=== PATIENT | female | born 1990 | race Caucasian/White ===

== ENCOUNTER 2016-11-16 01:22 | Outpatient (CLI) | payer OTHER ==
[~2016-11-16] VITALS: Ht 154.9 cm; Wt 90.5 kg
[2016-11-16] MEDS ORDERED: ONDA8TAB6 PO (02:20)
[2016-11-16] MEDS ORDERED: VALA500T60 PO (02:20)
[2016-11-16] MEDS ORDERED: ALBU4TAB10 PO (02:20)
[2016-11-16 02:24] VITALS: Ht 154.9 cm; Wt 90.5 kg
--- NOTE | 2016-11-16 07:54 | HISTORY & PHYSICAL EXAMINATION ---
DATE OF ADMISSION: 11/16/2016 CHIEF COMPLAINT: Pressure and pain with movement, intrauterine at 36 weeks plus gestation. HISTORY OF PRESENT ILLNESS: The patient is a 26-year-old 3, para 1, general health is good, due date is 12/14/2016, who has had no problems. Her first delivery was 2012 of 7 pounds 11 ounces at 39 weeks gestation, spontaneous vaginal delivery, pushed 4 hours. The patient said she had pelvic pain and discomfort when the baby moved. That happened about a half hour before she presented at [facility]. She has had no bleeding. She has had no leakage of fluid and movement has been good. PAST MEDICAL HISTORY: She has a girl 4-1/2 years old in good health. ALLERGIES: No known drug allergies. PAST SURGICAL HISTORY: She has had her gallbladder removed. She has had a right carpal tunnel. MEDICAL HISTORY: She is on Valtrex for problems with genital herpes. SOCIAL HISTORY: No smoking. No excessive alcohol intake. Works at a daycare center. FAMILY HISTORY: Mom is 47 in good health. Father 45 in good health. She has 1 sister in good health. REVIEW OF SYSTEMS: She does have a history of migraine headaches. No symptoms of frequent or severe ear infections, nosebleed or bladder infections. PHYSICAL EXAMINATION: GENERAL: Well developed, well-nourished 26-year-old white female, alert, oriented x3 and cooperative, in no acute distress, appears stated age. EYES: Conjunctivae are pink. Sclerae are white. No evidence of jaundice. EARS: Had normal light reflex bilaterally. NOSE: Had normal mucosa. Septum is midline. There were no polyps. THROAT: No erythema or evidence of infection. Teeth are in good state of repair. HEAD: Normocephalic, normal distribution of hair. NECK: Supple. Trachea midline. Thyroid is not enlarged. There is no adenopathy appreciated. Both carotids are of good intensity. CHEST: Clear to auscultation and percussion. No wheezes, rales or rhonchi appreciated. HEART: Had a regular rhythm. S1 and S2 were normal. BREASTS: Normal. Breast exam was normal. ABDOMEN: Soft and nontender, consistent with a 36-week , no CVA tenderness. MUSCULOSKELETAL: No calf tenderness. PELVIC: Revealed a vertex, floating. Cervix was posterior and closed. There was no bleeding. IMPRESSIONS OF THIS CASE: Status post cholecystectomy, status post removal of right ganglion cyst and no evidence of premature labor.
== END 2016-11-16 08:00 | disposition home or self-care (01) ==
LOC: C.OPB 01:22 → C.LD 01:22 → C.OPB 08:00
PROVIDERS: ATTEND Obstetrics & Gynecology
DX: Z34.83 Encounter for supervision of other normal pregnancy, third trimester (principal); Z3A.36 36 weeks gestation of pregnancy; Z90.49 Acquired absence of other specified parts of digestive tract

== ENCOUNTER 2016-11-30 22:30 | Outpatient (CLI) | payer OTHER ==
[~2016-11-30] VITALS: Ht 154.9 cm; Wt 93.0 kg
[~2016-11-30 22:30] MED LIST: ALBU4TAB10 PO; ONDA8TAB6 PO; VALA500T60 PO
[2016-12-01 00:43] VITALS: Ht 154.9 cm; Wt 93.0 kg
== END 2016-12-01 00:35 | disposition home or self-care (01) ==
LOC: C.LD 22:30 → C.OPB 22:30
PROVIDERS: ATTEND Obstetrics & Gynecology
DX: O26.893 Other specified pregnancy related conditions, third trimester (principal); Z3A.38 38 weeks gestation of pregnancy

== ENCOUNTER 2016-12-01 13:18 | Outpatient (CLI) | payer OTHER | END 2016-12-01 14:15 | disposition home or self-care (01) | LOC: C.LD 13:18 → C.OPB 13:18 | PROVIDERS: ATTEND Obstetrics & Gynecology | DX: Z34.83 Encounter for supervision of other normal pregnancy, third trimester (principal) ==

== ENCOUNTER 2016-12-08 21:17 | Inpatient (IN) | payer OTHER ==
[~2016-12-08] VITALS: Ht 154.9 cm; Wt 92.7 kg
[2016-12-08 22:02] VITALS: Ht 154.9 cm; Wt 92.7 kg
[2016-12-08] MEDS ORDERED: LACTATED RINGER'S 1000ML 1,000 ML IV PRN (22:25)
[2016-12-08] MEDS ORDERED: CALCIUM CARBONATE 500 MG CHEWABLE PO PRN (22:30)
[2016-12-08] MEDS ORDERED: PENICILLIN G POTASSIUM IV 6 MU in DEXTROSE 5% 250ML 250 ML IV STA (22:31)
[2016-12-08] MEDS ORDERED: MISOPROSTOLTAB 50 MCG TAB PO STA (22:32)
[2016-12-08] MEDS: LACTATED RINGER'S 1000ML 1,000 ML IV SCH (23:08)
[2016-12-08 23:21] LABS: HEMATOCRIT 33.7 % (37-47); MEAN CELL VOLUME 82.8 fL (80-100); MEAN CORPUSCULAR HGB CONC 33.8 g/dl (32-36); PLATELET COUNT 244 K/uL (130-400); RED BLOOD COUNT 4.07 M/uL (4.2-5.4); WHITE BLOOD COUNT 9.14 K/uL (4.8-10.8)
[2016-12-09] MEDS ORDERED: ONDANSETRON INJ 2 MG/ML 2 ML VIAL ONE (00:33)
[2016-12-09] MEDS ORDERED: NURSING VERBAL MED ORDER ONE (00:45)
[2016-12-09] MEDS ORDERED: ONDANSETRON INJ 2 MG/ML 2 ML VIAL IV PRN ×2 (01:00→21:15)
[2016-12-09] MEDS: PENICILLIN G POTASSIUM IV 3 MU in DEXTROSE 5% 100ML 100 ML IV PRN ×6 (02:34→22:13)
[2016-12-09] MEDS ORDERED: DINOPROSTONE 10 MG INSERT PV ONE (08:30)
[2016-12-09] MEDS ORDERED: BUTORPHANOL TARTRATE 1 MG/ML VIAL IV PRN (19:15)
[2016-12-09] MEDS ORDERED: BUTORPHANOL TARTRATE 1 MG/ML VIAL ONE (19:24)
[2016-12-09] MEDS ORDERED: LACTATED RINGER'S 1000ML 500 ML IV PRN ×2 (20:20→21:12)
[2016-12-09] MEDS ORDERED: BUPIVACAINE 0.25% 30 ML VIAL ONE (20:27)
[2016-12-09] MEDS ORDERED: FENTANYL CITRATE INJ 50 MCG/1 ML 2 ML VIAL ONE (20:27)
[2016-12-09] MEDS ORDERED: EpHEDrine SULFATE INJ 50 MG/ML AMP ONE (20:27)
[2016-12-09] MEDS ORDERED: FENTANYL 2MCG/ML ROPIV 1.25MG/ML 100ML BAG EPI ONE (20:27)
[2016-12-09] MEDS ORDERED: OXYTOCIN 30 UNITS/500ML NSS IV PRN (20:30)
[2016-12-09] MEDS ORDERED: FENTANYL 2MCG/ML ROPIV 1.25MG/ML 100ML BAG EPI PRN (21:15)
[2016-12-09] MEDS ORDERED: EpHEDrine SULFATE INJ 50 MG/ML AMP IV PRN (21:15)
[2016-12-09] MEDS ORDERED: NALOXONE HCL INJ 0.4 MG/1 ML VIAL/CARP IV PRN (21:15)
[2016-12-09] MEDS: LACTATED RINGER'S 1000ML 1,000 ML IV SCH (22:13)
[2016-12-10] MEDS ORDERED: METHYLERGONOVINE MALEATE 0.2 MG/ML AMP ONE (00:32)
[2016-12-10] MEDS ORDERED: LANOLIN OINT EXT PRN ×2 (02:00)
[2016-12-10] MEDS ORDERED: ACETAMINOPHEN 325 MG TAB PO PRN (02:00)
[2016-12-10] MEDS ORDERED: DIPHTHERIA/TETANUS/PERTUSSIS 0.5 ML SYR/VIAL IM. ONE (02:00)
[2016-12-10] MEDS ORDERED: METHYLERGONOVINE MALEATE 0.2 MG/ML AMP IM ONE (02:00)
[2016-12-10] MEDS ORDERED: OXYTOCIN 30 UNITS/500ML NSS IV PRN (02:00)
[2016-12-10] MEDS ORDERED: BENZOCAINE 20% AER SPR 82.5 GM CAN EXT PRN (02:00)
[2016-12-10] MEDS ORDERED: HYDROCORTISONE ACETATE 25 MG SUPP PR PRN (02:00)
[2016-12-10] MEDS ORDERED: ACETAMINOPHEN/CODEINE 300/30MG TAB PO PRN (02:00)
[2016-12-10] MEDS ORDERED: OXYCODONE/ACETAMINOPHEN 5-325 TAB PO PRN (02:00)
[2016-12-10] MEDS ORDERED: SUPERCREAM 0.870 % 15GM JAR EXT PRN (02:00)
--- NOTE | 2016-12-10 02:08 | Anesthesia Procedure Note ---
Anesthesia Epidural Removal Nt Date & Time Dec 10, 2016 at 02:08 Notes Mental Status: alert / awake / arousable, participated in evaluation Nausea / Vomiting: adequately controlled Pain: adequately controlled Airway Patency, RR, SpO2: stable & adequate BP & HR: stable & adequate Hydration State: stable & adequate Neuraxial Anesthesia: was administered Anesthetic Complications: no major complications apparent, pt satisfied with anesthetic care Epidural: removed without complications, with tip intact
--- NOTE | 2016-12-10 02:25 | DELIVERY SUMMARY ---
DATE OF OPERATION: 12/10/2016 A 26-year-old 2, para 2. Her blood type is O positive, hepatitis B negative, rubella immune. She is followed in our office for care and delivery, did miss a bunch of her visits. Eventually she had at least 2 elevated blood pressures that were by several days and she started to spill trace protein. For these reasons, she was brought in and given a diagnosis of mild toxemia. She was over 39 weeks gestation. She was brought in for induction of labor, started by giving her 50 mcg of Cytotec and then followed by Cervidil tape. She began to have strong contractions. She requested and received epidural anesthesia. Tape was removed, then she was augmented with IV Pitocin. She went to full dilatation. We eventually had to turn it off, give her oxygen because of some decelerations that she had with her contractions. We were able to control the decelerations and with oxygen and stopping the Pitocin, they were acceptable. She pushed out a live infant via direct occiput anterior position over an intact perineum. There was no nuchal cord. was suctioned through the mouth and the nose. Shoulders were delivered without difficulty. Cord was clamped, cut by the father. Cord blood was taken. With IV Pitocin running, the placenta was removed intact. Inspection of the perineum revealed a superficial laceration in the posterior vagina at 6 o'clock. This was repaired with a running 2-0 Vicryl. Following this, vag exam including rectovaginal examination revealed no hematoma formation. ESTIMATED BLOOD LOSS: 200 mL. My own estimation of 1 and 5-minute Apgars were 8 and 9 respectively. I attest to the content of the Intraoperative Record and any orders documented therein. Any exceptio ns are noted below.
[2016-12-10 04:56] VITALS: BP 127/86; PULSE 95; TEMP 36.5
[2016-12-10] MEDS: IBUPROFEN 600 MG TAB PO PRN ×3 (05:32→16:52)
[2016-12-10 08:20] VITALS: BP 113/80; PULSE 82; TEMP 36.6
[2016-12-10] MEDS: FERROUS SULFATE 325 MG TAB PO SCH (08:25)
[2016-12-10] MEDS: PRENATAL VITAMIN TAB PO SCH (08:25)
[2016-12-10 12:00] VITALS: BP 122/83; PULSE 79; TEMP 36.8
[2016-12-10] MEDS: ACETAMINOPHEN/CODEINE 300/30MG TAB PO PRN ×2 (14:27→19:27)
[2016-12-10 15:50] VITALS: BP 115/70; PULSE 77; TEMP 36.9
[2016-12-11 00:10] VITALS: BP 118/85; PULSE 70; TEMP 36.5
[2016-12-11 04:00] VITALS: BP 119/83; PULSE 68; TEMP 36.4
[2016-12-11 06:50] LABS: HEMATOCRIT 31.5 % (37-47)
[2016-12-11] MEDS: FERROUS SULFATE 325 MG TAB PO SCH (07:52)
[2016-12-11] MEDS: PRENATAL VITAMIN TAB PO SCH (07:52)
[2016-12-11 08:00] VITALS: BP 134/79; PULSE 76; TEMP 36.6; O2SAT 98
[2016-12-11] MEDS: IBUPROFEN 600 MG TAB PO PRN ×3 (08:01→22:55)
--- NOTE | 2016-12-11 10:20 | Progress Note ---
Subjective Dec 11, 2016. Subjective conversation w/ patient Ambulation: ambulating normally Voiding: no voiding problems Passing Gas: Yes Diet Tolerance: Regular Diet Lochia: Small Feeding Type: Breast Feeding Review of Systems Constitutional: + fever Objective Vital Signs Date Time Temp Pulse Resp B/P Pulse Ox O2 Delivery O2 Flow Rate FiO2 12/11/16 04:00 36.4 68 18 119/83 Room Air 12/11/16 00:10 Room Air 12/11/16 00:10 36.5 70 18 118/85 Room Air 12/10/16 15:50 36.9 77 20 115/70 12/10/16 12:00 36.8 79 20 122/83 Physical Exam General Appearance: WELL-APPEARING Abdomen: non tender Fundus: Firm, Non-Tender Extremities: no pedal edema, no calf tenderness Laboratory Results Last 24 Hours Test 12/11/16 06:15 Hemoglobin 10.4 g/dL Hematocrit 31.5 % Assessment and Plan Problem List Medical Problems: (1) Abdominal pain Status: Acute (2) Ankle sprain Status: Acute (3) Asthmatic bronchitis Status: Acute (4) Contusion of left foot Status: Acute (5) Dehydration Status: Acute (6) Head injury Status: Acute (7) Left ankle sprain Status: Acute (8) Palpitations Status: Acute (9) Pneumonia Status: Acute (10) test negative Status: Acute (11) Syncope Status: Acute (12) Vomiting Status: Acute Post- Day#: 1
[2016-12-11 15:15] VITALS: BP 123/82; PULSE 85; TEMP 36.8; O2SAT 98
[2016-12-11] MEDS: ACETAMINOPHEN/CODEINE 300/30MG TAB PO PRN (19:43)
[2016-12-11] MEDS ORDERED: BISACODYL 5 MG TABEC PO SCH (20:00)
[2016-12-11 22:50] VITALS: BP 128/87; PULSE 82; TEMP 36.5; O2SAT 97
[2016-12-12] MEDS ORDERED: BISACODYL 10 MG SUPP PR PRN (07:00)
[2016-12-12 07:10] VITALS: BP 126/85; PULSE 84; TEMP 36.6; O2SAT 97
[2016-12-12] MEDS: FERROUS SULFATE 325 MG TAB PO SCH (09:13)
[2016-12-12] MEDS: PRENATAL VITAMIN TAB PO SCH (09:14)
[2016-12-12] MEDS: IBUPROFEN 600 MG TAB PO PRN (09:15)
--- NOTE | 2016-12-12 10:40 | Progress Note ---
Subjective Dec 12, 2016. Subjective conversation w/ patient Ambulation: ambulating normally Voiding: no voiding problems Passing Gas: Yes Diet Tolerance: Regular Diet Lochia: Small Feeding Type: Breast Feeding Review of Systems Constitutional: + fever Objective Vital Signs Date Time Temp Pulse Resp B/P Pulse Ox O2 Delivery O2 Flow Rate FiO2 12/12/16 07:10 97 Room Air 12/12/16 07:10 36.6 84 16 126/85 97 Room Air 12/11/16 22:50 97 Room Air 12/11/16 22:50 36.5 82 16 128/87 97 Room Air 12/11/16 15:15 98 Room Air 12/11/16 15:15 36.8 85 18 123/82 98 Room Air Physical Exam General Appearance: WELL-APPEARING Respiratory/Chest: lungs clear Abdomen: non tender Fundus: Firm, Non-Tender Extremities: no pedal edema, no calf tenderness Assessment and Plan Problem List Medical Problems: (1) Abdominal pain Status: Acute (2) Ankle sprain Status: Acute (3) Asthmatic bronchitis Status: Acute (4) Contusion of left foot Status: Acute (5) Dehydration Status: Acute (6) Head injury Status: Acute (7) Left ankle sprain Status: Acute (8) Palpitations Status: Acute (9) Pneumonia Status: Acute (10) test negative Status: Acute (11) Syncope Status: Acute (12) Vomiting Status: Acute Post- Day#: 2
--- NOTE | 2016-12-12 10:43 | Discharge Instructions ---
Discharge Instructions Admission Reason for Admission: Induction toxemia Discharge Discharge Diagnosis / Problem: toxemia Discharge Goals Goal(s): Routine recovery after delivery Activity Recommendations Activity Limitations: as noted below ACTIVITY RECOMMENDATIONS: * Gradual return to full activity over the next 2-3 weeks. * No lifting - nothing heavier than baby over the next 2-3 weeks. * Do not engage in vigorous exercise, sexual activity or sports until cleared by your physician. * Do not drive or operate any motorized equipment until cleared by your physician. * You may shower/bathe daily. DIET: Resume Previous Diet If Breast-feeding: * Increase caloric intake by 500 calories, eat 3 well balanced meals, 2 high protein snacks a day and drink 6-8 8oz. glasses of fluid per day. BREAST CARE: If you are not breast feeding: * Wear a supportive bra 24 hours a day for one to two weeks. * Avoid stimulating your breasts and nipples as much as possible during the first few weeks after delivery. * When taking a shower, have the warm water hit your back, not breasts. * When your breasts feel full, apply ice packs. Usually three to four times a day helps ease the discomfort. * Take a mild pain medication (Tylenol / Motrin) when you are uncomfortable. If breast feeding: * Use breast milk to lubricate nipples. Lansinoh cream may be used for sore nipples. You do not need to remove cream prior to breast feeding. If using a different brand of cream, check the label for directions regarding removal of cream prior to nursing. * Wear a supportive bra. * If having problems with breasts or breast feeding, call a client insights consultant or your health care provider. OVER THE COUNTER MEDICATION: * For discomfort or pain, you may use Acetaminophen (Tylenol), Ibuprofen (Advil ), or Naproxen (Aleve) following the package directions. * For constipation you may use Colace following the package directions. SPECIAL CARE INSTRUCTIONS: * Vaginal rest (no tampons, douching, intercourse) until after doctor 's visit. * control as discussed with doctor. * Verbalizes understanding of car seat law as reviewed with patient nursing. * Car Seat hand-out given and reviewed with patient by nursing. * Shaken baby information reviewed with patient by nursing. Call you doctor if: * Temperature greater than or equal to 100.4 degrees F or 38.0 degrees C. Take your temperature twice daily for a week. * Bleeding becomes heavier than the heaviest part of your period - saturating a sanitary pad within an hour. * Passing large clots. * Bleeding has a foul smelling odor. * Signs and symptoms of phlebitis: leg pain, warm, red or swollen area on leg. * "Baby Blues" lasting longer than two weeks. ++ If you have had a and incision has increased pain, redness, swelling, presence of any drainage, or if the incision starts to open up. If you have any questions or concerns, call your health care practitioner at [phone]. FOLLOW-UP VISIT: Please call the office at to schedule a 6 week examination. . Instructions / Follow-Up Instructions / Follow-Up ACTIVITY RECOMMENDATIONS: * Gradual return to full activity over the next 2-3 weeks. * No lifting - nothing heavier than baby over the next 2-3 weeks. * Do not engage in vigorous exercise, sexual activity or sports until cleared by your physician. * Do not drive or operate any motorized equipment until cleared by your physician. * You may shower/bathe daily. DIET: Resume Previous Diet If Breast-feeding: * Increase caloric intake by 500 calories, eat 3 well balanced meals, 2 high protein snacks a day and drink 6-8 8oz. glasses of fluid per day. BREAST CARE: If you are not breast feeding: * Wear a supportive bra 24 hours a day for one to two weeks. * Avoid stimulating your breasts and nipples as much as possible during the first few weeks after delivery. * When taking a shower, have the warm water hit your back, not breasts. * When your breasts feel full, apply ice packs. Usually three to four times a day helps ease the discomfort. * Take a mild pain medication (Tylenol / Motrin) when you are uncomfortable. If breast feeding: * Use breast milk to lubricate nipples. Lansinoh cream may be used for sore nipples. You do not need to remove cream prior to breast feeding. If using a different brand of cream, check the label for directions regarding removal of cream prior to nursing. * Wear a supportive bra. * If having problems with breasts or breast feeding, call a client insights consultant or your health care provider. OVER THE COUNTER MEDICATION: * For discomfort or pain, you may use Acetaminophen (Tylenol), Ibuprofen (Advil ), or Naproxen (Aleve) following the package directions. * For constipation you may use Colace following the package directions. SPECIAL CARE INSTRUCTIONS: * Vaginal rest (no tampons, douching, intercourse) until after doctor 's visit. * control as discussed with doctor. * Verbalizes understanding of car seat law as reviewed with patient nursing. * Car Seat hand-out given and reviewed with patient by nursing. * Shaken baby information reviewed with patient by nursing. Call you doctor if: * Temperature greater than or equal to 100.4 degrees F or 38.0 degrees C. Take your temperature twice daily for a week. * Bleeding becomes heavier than the heaviest part of your period - saturating a sanitary pad within an hour. * Passing large clots. * Bleeding has a foul smelling odor. * Signs and symptoms of phlebitis: leg pain, warm, red or swollen area on leg. * "Baby Blues" lasting longer than two weeks. ++ If you have had a and incision has increased pain, redness, swelling, presence of any drainage, or if the incision starts to open up. If you have any questions or concerns, call your health care practitioner at [phone]. FOLLOW-UP VISIT: Please call the office at to schedule a 6 week examination. Current Hospital Diet Patient's current hospital diet: Regular OB Diet Discharge Diet Recommended Diet: Regular Diet Pending Studies Studies pending at discharge: no Medical Emergencies . Who to Call and When: Medical Emergencies: If at any time you feel your situation is an emergency, please call 911 immediately. . Non-Emergent Contact Non-Emergency issues call your: Fruit Loader Call Non-Emergent contact if: temperature is above 100.5 . . "Provider Documentation" section prepared by Migue Ybarra. VTE Core Measure Inpt VTE Proph given/why not?: Treatment not indicated
[2016-12-12 13:45] VITALS: BP_DIAS 85; PULSE 84; TEMP 36.6
== END 2016-12-12 13:45 | disposition home or self-care (01) | DRG 774 ==
LOC: C.LD 21:17 → C.OBG 12-10 03:29
PROVIDERS: ADMIT Obstetrics & Gynecology; ATTEND Obstetrics & Gynecology
PROC: 10E0XZZ Delivery of Products of Conception, External Approach (ICD-10-PCS; principal; 2016-12-10)
PROC: 0HQ9XZZ Repair Perineum Skin, External Approach (ICD-10-PCS; 2016-12-10)
DX: O14.03 Mild to moderate pre-eclampsia, third trimester (principal); O70.0 First degree perineal laceration during delivery; Z37.0 Single live birth; Z3A.39 39 weeks gestation of pregnancy

== ENCOUNTER 2016-12-23 20:05 | Emergency (ER) | payer OTHER ==
[~2016-12-23] VITALS: Ht 154.9 cm; Wt 86.2 kg
[~2016-12-23 20:05] MED LIST changes: -VALA500T60 PO
[2016-12-23 20:08] VITALS: TEMP 36.9; Ht 154.9 cm; Wt 86.2 kg
[2016-12-23] MEDS ORDERED: DiphenhydrAMINE HCL 50 MG/ML VIAL IV STA (20:32)
[2016-12-23] MEDS ORDERED: SODIUM CHLORIDE 0.9% 1000ML 1,000 ML IV STA (20:32)
[2016-12-23] MEDS ORDERED: PROCHLORPERAZINE 5 MG/ML 2 ML VIAL IV STA (20:32)
[2016-12-23] MEDS ORDERED: ZFRODT/8 PO (20:55)
[2016-12-23 20:58] LABS: BASO % 0.5 %; BASO ABS # 0.05 K/uL (0-0.2); COMPLETE YES; EOS % 2.6 %; HEMATOCRIT 38.1 % (37-47); IG% 0.2 %; LYMPH % 46.6 %; LYMPH ABS # 4.67 K/uL (1.2-3.4); MEAN CELL VOLUME 81.8 fL (80-100); MEAN CORPUSCULAR HEMOGLOBIN 27.9 pg (25-34); MEAN CORPUSCULAR HGB CONC 34.1 g/dl (32-36); MEAN PLATELET VOLUME 8.6 fL (7.4-10.4); MONO % 5.2 %; NEUT % 44.9 %; PLATELET COUNT 322 K/uL (130-400); RED BLOOD COUNT 4.66 M/uL (4.2-5.4); WHITE BLOOD COUNT 10.03 K/uL (4.8-10.8)
--- NOTE | 2016-12-23 21:07 | DIAGNOSTIC IMAGING REPORT ---
CT SCAN OF THE BRAIN WITHOUT IV CONTRAST CLINICAL HISTORY: Headache. COMPARISON STUDY: CT the brain dated 07/13/2016. TECHNIQUE: Unenhanced axial CT scan of the brain is performed from the vertex to the skull base. Automated dose control exposure was utilized. The skull base was scanned twice due to motion artifact. FINDINGS: Brain parenchyma: The brain parenchyma is normal in appearance. There is no hemorrhage, mass effect, or evidence of acute territorial ischemia by CT criteria. [place]-white matter is preserved. No extra-axial fluid collection is seen. Ventricles, sulci, cisterns: Normal in configuration. Intracranial vasculature: The visualized intracranial vasculature at the skull base is normal in appearance. Calvarium: There is no depressed calvarial fracture. Sinuses and mastoids: There is advanced mucosal thickening within the ethmoid sinuses. Moderate mucosal thickening is seen within the frontal sinuses. An air-fluid level is noted in the left maxillary antrum. Mild mucosal thickening is seen in the sphenoid sinuses. The mastoid air cells are well pneumatized. Orbits: The bony orbits are grossly intact. IMPRESSION: 1. No acute intracranial abnormality. 2. Paranasal sinus disease as above. Correlate clinically for evidence of acute sinusitis. Electronically signed by: Alex Feng M.D. 12/23/2016 9:05 PM Dictated Date/Time: 12/23/2016 9:03 PM
[2016-12-23] MEDS ORDERED: MAGNESIUM SULFATE 1GM / D5W 1 GM BAG IV STA (21:13)
[2016-12-23] MEDS ORDERED: AMOXICILLIN/CLAVULANATE TAB 875 MG TAB PO ONE (21:15)
[2016-12-23 21:16] LABS: BUN/CREATININE RATIO 17.3 (10-20); CALCIUM 8.4 mg/dl (8.5-10.1); CREATININE 0.84 mg/dl (0.60-1.20); POTASSIUM 3.7 mmol/L (3.5-5.1)
[2016-12-23] MEDS ORDERED: AMOX875T PO (22:18)
[2016-12-23 22:43] VITALS: BP 107/71; PULSE 80; O2SAT 96
--- NOTE | 2016-12-23 23:21 | EMERGENCY ROOM VISIT NOTE ---
History Report prepared by Jaylon: Jenny Kincaid Under the Supervision of: Dr. Maxwell Michael M.D. First contact with patient: 20:24 Chief Complaint: HEADACHE Stated Complaint: HEADACHE,DIZZY,NAUSEA,FOR 3 DAYS, ROOM SPINNING History of Present Illness The patient is a 26 year old female who presents to the Emergency Room with complaints of a persistent headache that started four days ago. This is a throbbing headache that is located in the front, and on both sides of her head. She rates her discomfort a 10/10. Associated symptoms include nausea and photophobia, The patient has a history of migraines but she states that this headache feels different. Her headaches are usually not located in the frontal region. The patient has taken Tylenol and Excedrin which have not offered relief. She denies vomiting ,fevers, numbness, and weakness. She does complain of dizziness and vertigo which is worse when she moves her head.She does add that she has had vertigo in the past with her migraines. Source of History: patient Onset: four days ago Position: head Symptom Intensity: 10/10 Quality: other (Throbbing) Timing: other (Persistent ) Modifying Factors (Worsening): other (light) Modifying Factors (Relieving): other (None) Associated Symptoms: + nausea, No fevers, No numbness, No vomiting, No weakness Note: Additional associated symptoms include photophobia, dizziness, and nausea. Review of Systems See HPI for pertinent positives & negatives. A total of 10 systems reviewed and were otherwise negative. Past Medical & Surgical Medical Problems: (1) Anxiety State Nos (2) Asthma, Unspecified (3) Cholecystectomy (4) Depressive Disorder Nec (5) Esophageal Reflux (6) Lumbago (7) Obesity, Nos (8) 25 weeks 3 days (9) Pyelonephritis Nos (10) Tobacco Use Disorder (11) Toxemia of (12) Uterine contractions at greater than 20 weeks of gestation Family History Cancer Diabetes mellitus FHx: gallbladder disease Heart disease Hypertension Kidney disease Kidney stones Lung disease Social History Smoking Status: Never Smoker Alcohol Use: none Drug Use: none Marital Status: single Housing Status: lives with family Occupation Status: employed Current/Historical Medications Scheduled Amoxicillin & Pot Clavulanate (Augmentin 875-125 mg), 875 MG PO BID Scheduled PRN Acetaminophen (Tylenol), 1,000 MG PO Q6H PRN for Pain or Fever Albuterol (Ventolin Hfa), 2 PUFFS INH UD PRN for Shortness of Breath Ondansetron (Ondansetron Odt), 8 MG PO BID PRN for Nausea Valacyclovir HCl (Valacyclovir HCl), 500 MG PO DAILY PRN for UNDECIDED Allergies Coded Allergies: Bee Venom (Verified Allergy, Intermediate, Swelling, 12/23/16) [place] (Verified Allergy, Intermediate, Swelling of throat and nausea , 12/23/16) Uncoded Allergies: JOAQUIN (Allergy, Intermediate, Swelling of throat and nausea, 12/23/16) Physical Exam Vital Signs Date Time Temp Pulse Resp B/P Pulse Ox O2 Delivery O2 Flow Rate FiO2 12/23/16 22:43 80 16 107/71 96 12/23/16 22:05 81 14 97 12/23/16 22:01 143/88 12/23/16 21:56 78 12/23/16 21:55 78 13 97 12/23/16 21:45 83 13 97 12/23/16 21:36 111/91 12/23/16 21:08 82 130/86 97 Room Air 12/23/16 20:08 36.9 100 18 113/82 96 Room Air Physical Exam Constitutional: Vital signs reviewed. Eyes: Pupils are equal round reactive to light. Conjunctiva are noninjected. ENT: Pharynx is clear without erythema or exudate. Mucous membranes are moist. Neck supple without meningeal signs. Respiratory: Clear to auscultation bilaterally. Breath sounds are equal bilaterally. Cardiovascular: Regular rate and rhythm. No rubs or gallops. GI: Soft, nondistended and nontender. Bowel sounds are present. Musculoskeletal: No peripheral edema. Integumentary: No cyanosis. Neurological: Right lateral nystagmus noted. No vertical nystagmus. Negative test of skew. The patient is awake and alert. Cranial nerves II-XII are intact. Motor is 5 out of 5 all extremities. Sensation is intact to light touch all extremities. Normal speech. No pronator drift. No dysdiadochokinesis. No limb ataxia. Psychiatric: Normal affect. Medical Decision & Procedures ER Provider Diagnostic Interpretation: CT results as stated below per interpretation by me and the radiologist: CT SCAN OF THE BRAIN WITHOUT IV CONTRAST CLINICAL HISTORY: Headache. COMPARISON STUDY: CT the brain dated 07/13/2016. TECHNIQUE: Unenhanced axial CT scan of the brain is performed from the vertex to the skull base. Automated dose control exposure was utilized. The skull base was scanned twice due to motion artifact. FINDINGS: Brain parenchyma: The brain parenchyma is normal in appearance. There is no hemorrhage, mass effect, or evidence of acute territorial ischemia by CT criteria. [place]-white matter is preserved. No extra-axial fluid collection is seen. Ventricles, sulci, cisterns: Normal in configuration. Intracranial vasculature: The visualized intracranial vasculature at the skull base is normal in appearance. Calvarium: There is no depressed calvarial fracture. Sinuses and mastoids: There is advanced mucosal thickening within the ethmoid sinuses. Moderate mucosal thickening is seen within the frontal sinuses. An air-fluid level is noted in the left maxillary antrum. Mild mucosal thickening is seen in the sphenoid sinuses. The mastoid air cells are well pneumatized. Orbits: The bony orbits are grossly intact. IMPRESSION: 1. No acute intracranial abnormality. 2. Paranasal sinus disease as above. Correlate clinically for evidence of acute sinusitis. Electronically signed by: Alex Feng M.D. 12/23/2016 9:05 PM Dictated Date/Time: 12/23/2016 9:03 PM Laboratory Results 12/23/16 20:45 Red Blood Count 4.66, Mean Corpuscular Volume 81.8, Mean Corpuscular Hemoglobin 27.9, Mean Corpuscular Hemoglobin Concent 34.1, Mean Platelet Volume 8.6, Neutrophils (%) (Auto) 44.9, Lymphocytes (%) (Auto) 46.6, Monocytes (%) (Auto) 5.2, Eosinophils (%) (Auto) 2.6, Basophils (%) (Auto) 0.5, Neutrophils # (Auto) 4.51, Lymphocytes # (Auto) 4.67, Monocytes # (Auto) 0.52, Eosinophils # (Auto) 0.26, Basophils # (Auto) 0.05 12/23/16 20:45 Test 12/23/16 20:45 White Blood Count 10.03 K/uL (4.8-10.8) Red Blood Count 4.66 M/uL (4.2-5.4) Hemoglobin 13.0 g/dL (12.0-16.0) Hematocrit 38.1 % (37-47) Mean Corpuscular Volume 81.8 fL (80-100) Mean Corpuscular Hemoglobin 27.9 pg (25-34) Mean Corpuscular Hemoglobin Concent 34.1 g/dl (32-36) Platelet Count 322 K/uL (130-400) Mean Platelet Volume 8.6 fL (7.4-10.4) Neutrophils (%) (Auto) 44.9 % Lymphocytes (%) (Auto) 46.6 % Monocytes (%) (Auto) 5.2 % Eosinophils (%) (Auto) 2.6 % Basophils (%) (Auto) 0.5 % Neutrophils # (Auto) 4.51 K/uL (1.4-6.5) Lymphocytes # (Auto) 4.67 K/uL (1.2-3.4) Monocytes # (Auto) 0.52 K/uL (0.11-0.59) Eosinophils # (Auto) 0.26 K/uL (0-0.5) Basophils # (Auto) 0.05 K/uL (0-0.2) RDW Standard Deviation 39.4 fL (36.4-46.3) RDW Coefficient of Variation 13.1 % (11.5-14.5) Immature Granulocyte % (Auto) 0.2 % Immature Granulocyte # (Auto) 0.02 K/uL (0.00-0.02) Anion Gap 10.0 mmol/L (3-11) Est Creatinine Clear Calc Drug Dose 100.3 ml/min Estimated GFR () 110.4 Estimated GFR (Non- 95.3 BUN/Creatinine Ratio 17.3 (10-20) Calcium Level 8.4 mg/dl (8.5-10.1) Laboratory results as reviewed by me. Medications Administered Medications (Trade) Dose Ordered Sig/Victorina Route Start Time Stop Time Status Last Admin Dose Admin Prochlorperazine Edisylate (Compazine Inj) 10 mg NOW STAT IV 12/23/16 20:32 12/23/16 20:33 DC 12/23/16 20:48 10 MG Diphenhydramine HCl 50 mg 50 mg NOW STAT IV 12/23/16 20:32 12/23/16 20:33 DC 12/23/16 20:48 50 MG Sodium Chloride (Nss 1000ml) 1,000 ml @ 999 mls/hr Q1H1M STAT IV 12/23/16 20:32 12/23/16 21:32 DC 12/23/16 20:48 999 MLS/HR Amoxicillin/ Clavulanate Potassium (Augmentin Tab) 875 mg ONE ONCE PO 12/23/16 21:15 12/23/16 21:16 DC 12/23/16 21:20 875 MG Magnesium Sulfate (Magnesium Sulfate) 2 gm NOW STAT IV 12/23/16 21:13 12/23/16 21:14 DC 12/23/16 21:20 2 GM ED Course 2025: The patient was evaluated in room B11. A complete history and physical exam was performed. 2031: Ordered Sodium Chloride 1,000 ml @ 999 mls/hr IV, Benadryl Injection 50 mg IV, Compazine Injection 10 mg IV. 2112: Ordered Magnesium Sulfate 2 gm IV. 2114: Ordered Augmentin Tablet 875 mg PO. 2115: Upon reevaluation, the patient's headache has improved but it is still there. The patient updated me that she has been experiencing sinus symptoms x7 days. 2213: Upon reevaluation, the patient is feeling much better. We are awaiting completion of the Magnesium drip. Medical Decision This is a 26-year-old female presents with a headache and vertigo. Differential diagnosis includes migraine headache, tension headache, cluster headache, intracranial mass, intracranial hemorrhage, BPV. I did perform a limited focused review of portions of the patient's old chart on the electronic medical record. The patient had an epidural performed on 12/10/2016 I did evaluate the patient as noted above. The patient is presenting with a headache and vertigo. She does state that she has a history of migraines and also has had vertigo with her migraines in the past. She is neurologically intact on my examination. She has no cerebellar signs or cranial nerve deficits. IV access was established. I did treat the patient with IV Compazine and Benadryl. She was also given normal saline IV. I did order and review the patient's blood work as noted in the electronic medical record. Her white blood cell count is not elevated. I did order a CT of the head. I did review the images myself as well as the radiology report as described above. There is no evidence of acute intracranial abnormality. She does have signs of sinusitis. On reevaluation the patient states that her headache is improved but still present. She does state that she has had sinus symptoms for the past 7 days. She was treated with Augmentin. I also treated her with magnesium 2 g IV. On reassessment the patient is feeling better. She was advised follow closely with her doctor. She was given return instructions as outlined below. She was discharged with a prescription for Augmentin. Impression Primary Impression: Headache Additional Impressions: Vertigo Acute sinusitis Scribe Attestation The scribe's documentation has been prepared under my direct and personally reviewed by me in its entirety. I confirm that the note above accurately reflects all work, treatment, procedures, and medical decision making performed by me. Departure Information Dispostion Home / Self-Care Prescriptions Amoxicillin & Pot Clavulanate (Augmentin 875-125 mg) 1 Tab Tab 875 MG PO BID, #20 TAB Prov: Maxwell Michael M.D. 12/23/16 Referrals Ravinder Artis M.D. (PCP) Forms HOME CARE DOCUMENTATION FORM, IMPORTANT VISIT INFORMATION Patient Instructions My [facility] Additional Instructions You have been examined and treated today on an emergency basis only. This is not a substitute for, or an effort to provide, complete comprehensive medical care. It is impossible to recognize and treat all injuries or illnesses in a single emergency department visit. It is therefore important that you follow up closely with your physician. Call as soon as possible for an appointment. Return for worsening symptoms or if you develop fever, numbness or weakness on one side of your body, difficulties with your speech or walking, or any other concerning symptoms. Problem Qualifiers Primary Impression: Headache Headache type: unspecified Headache chronicity pattern: acute headache Intractability: not intractable Qualified Codes: R51 - Headache Additional Impressions: Acute sinusitis Sinusitis location: unspecified location Recurrence: not specified as recurrent Qualified Codes: J01.90 - Acute sinusitis, unspecified
== END 2016-12-23 22:44 | disposition home or self-care (01) ==
LOC: C.EDB 20:06
DX: R51 Headache (principal); R42 Dizziness and giddiness; J01.90 Acute sinusitis, unspecified; J45.909 Unspecified asthma, uncomplicated; E66.9 Obesity, unspecified; Z90.49 Acquired absence of other specified parts of digestive tract; Z83.3 Family history of diabetes mellitus; Z82.49 Family history of ischemic heart disease and other diseases of the circulatory system; Z84.1 Family history of disorders of kidney and ureter

== ENCOUNTER 2016-12-28 08:35 | Emergency (ER) | payer OTHER ==
[~2016-12-28] VITALS: Ht 154.9 cm; Wt 87.0 kg
[~2016-12-28 08:35] MED LIST changes: -ALBU4TAB10 PO; +AMOX875T PO; -ONDA8TAB6 PO; +ZFRODT/8 PO
[2016-12-28 08:43] VITALS: TEMP 36.9; Ht 154.9 cm; Wt 87.0 kg
--- NOTE | 2016-12-28 09:45 | DIAGNOSTIC IMAGING REPORT ---
RIGHT WRIST 5 VIEWS CLINICAL HISTORY: Right wrist pain and injury. FINDINGS: 5 views of the right wrist obtained. No prior studies are available for comparison at the time of dictation. The skeletal structures are well mineralized. No fracture is seen. The joint spaces of the wrist are well-maintained. The overlying soft tissues are within normal limits. IMPRESSION: Unremarkable radiographic assessment of the right wrist. Electronically signed by: Alex Feng M.D. 12/28/2016 9:44 AM Dictated Date/Time: 12/28/2016 9:43 AM
[2016-12-28 10:18] VITALS: BP 114/98; PULSE 97; O2SAT 98
--- NOTE | 2016-12-28 11:15 | EMERGENCY ROOM VISIT NOTE ---
History First contact with patient: 08:50 Chief Complaint: WRIST PAIN Stated Complaint: RIGHT WRIST PAIN History of Present Illness The patient is a 26 year old female who presents to the Emergency Room with complaints of right wrist pain. The patient reports that she was attempting to get out of bed this morning when she heard her wrist. She reports that she had her hand clenched, and tried to push herself up. She now complains of pain mostly through the center of the wrist, but does somewhat radiate to the radial aspect. She denies any pain over the ulnar aspect of the wrist, forearm or elbow. She denies any paresthesias or numbness of the hand or fingers. The patient is [id number], and rates her pain an 8 out of 10. Review of Systems 10 system review was performed and was negative except for pertinent positives and negatives as indicated in history of present illness Past Medical/Surgical History Medical Problems: (1) Anxiety State Nos (2) Asthma, Unspecified (3) Cholecystectomy (4) Depressive Disorder Nec (5) Esophageal Reflux (6) Lumbago (7) Obesity, Nos (8) 25 weeks 3 days (9) Pyelonephritis Nos (10) Tobacco Use Disorder (11) Toxemia of (12) Uterine contractions at greater than 20 weeks of gestation Family History Cancer Diabetes mellitus FHx: gallbladder disease Heart disease Hypertension Kidney disease Kidney stones Lung disease Social History Smoking Status: Never Smoker Alcohol Use: none Drug Use: none Marital Status: single Housing Status: lives with family Occupation Status: employed Current/Historical Medications Scheduled Amoxicillin & Pot Clavulanate (Augmentin 875-125 mg), 875 MG PO BID Scheduled PRN Acetaminophen (Tylenol), 1,000 MG PO Q6H PRN for Pain or Fever Albuterol (Ventolin Hfa), 2 PUFFS INH UD PRN for Shortness of Breath Ondansetron (Ondansetron Odt), 8 MG PO BID PRN for Nausea Valacyclovir HCl (Valacyclovir HCl), 500 MG PO DAILY PRN for UNDECIDED Allergies Coded Allergies: Bee Venom (Verified Allergy, Intermediate, Swelling, 12/28/16) [place] (Verified Allergy, Intermediate, Swelling of throat and nausea , 12/28/16) Uncoded Allergies: JOAQUIN (Allergy, Intermediate, Swelling of throat and nausea, 12/23/16) Physical Exam Vital Signs Date Time Temp Pulse Resp B/P Pulse Ox O2 Delivery O2 Flow Rate FiO2 12/28/16 10:18 97 16 114/98 98 12/28/16 08:43 36.9 97 18 124/88 96 Room Air Physical Exam CONSTITUTIONAL: Healthy and well nourished. Alert and oriented X 3 with positive affect. HEENT: Normocephalic, atraumatic. Pupils equal, round and reactive. NECK: Full active range of motion without discomfort. MUSCULOSKELETAL: Examination of the right wrist does not show any soft tissue edema, erythema, ecchymosis or deformity. She has minimal tenderness to palpation through the dorsal wrist. Negative anatomic snuffbox tenderness. No worsening pain with flexion or extension of the fingers. Capillary refill is less than 2 seconds. INTEGUMENTARY: No rash or other significant dermatologic conditions noted. NEUROLOGIC: No focal neurologic deficits noted. Medical Decision & Procedures ER Provider Diagnostic Interpretation: My interpretation of right wrist x-rays does not show any acute fractures or dislocations. Radiologist report is as follows: RIGHT WRIST 5 VIEWS CLINICAL HISTORY: Right wrist pain and injury. FINDINGS: 5 views of the right wrist obtained. No prior studies are available for comparison at the time of dictation. The skeletal structures are well mineralized. No fracture is seen. The joint spaces of the wrist are well-maintained. The overlying soft tissues are within normal limits. IMPRESSION: Unremarkable radiographic assessment of the right wrist. ED Course Patient history and physical exam were performed. Nurse's notes were reviewed. The patient refused any analgesics while in the emergency department. X-rays of the right wrist were normal. A wrist lacer was applied. The patient was encouraged to intermittently apply ice to the wrist. She was instructed to perform range of motion exercises to prevent stiffness. Ibuprofen and Tylenol in alternating fashion as needed for pain relief. Follow-up with family doctor/ orthopedics if symptoms are not improving within the next week. The patient was happy with plan of care, voiced understanding of all discharge instructions , and rated her pain a 4 out of 10 at the conclusion of my exam. Medical Decision Impression Primary Impression: Right wrist sprain Departure Information Referrals Ravnider Artis M.D. (PCP) Patient Instructions My [facility] Problem Qualifiers Primary Impression: Right wrist sprain Encounter type: initial encounter Qualified Codes: S63.501A - Unspecified sprain of right wrist, initial encounter
== END 2016-12-28 10:19 | disposition home or self-care (01) ==
LOC: C.EDB 08:36
DX: S63.501A Unspecified sprain of right wrist, initial encounter (principal); X58.XXXA Exposure to other specified factors, initial encounter; J45.909 Unspecified asthma, uncomplicated; F41.9 Anxiety disorder, unspecified; F32.9 Major depressive disorder, single episode, unspecified; K21.9 Gastro-esophageal reflux disease without esophagitis; F17.200 Nicotine dependence, unspecified, uncomplicated; Z90.49 Acquired absence of other specified parts of digestive tract; Z87.440 Personal history of urinary (tract) infections; Z91.030 Bee allergy status; Z91.018 Allergy to other foods; Z80.9 Family history of malignant neoplasm, unspecified; Z83.3 Family history of diabetes mellitus; Z83.79 Family history of other diseases of the digestive system; Z82.49 Family history of ischemic heart disease and other diseases of the circulatory system; Z84.1 Family history of disorders of kidney and ureter

== ENCOUNTER → 2017-01-21 | Outpatient (CLI) | payer OTHER ==
[~2017-01-21] MED LIST changes: +ACET-1256 PO; +AMOX500C3 PO; -AMOX875T PO; +AZITTAB PO; +CLIN300C2 PO; +CLX20 PO; +CYCL5TAB PO; +ESCI10TA17 PO; +FLX/5 PO; +ONDA8TAB6 PO; +OXYC1TAB3 PO; +PRVHFAIN INH; +VLT500 PO; +ZFRODT/8 SL
== END | disposition home or self-care (01) ==
LOC: C.PAPS 16:13
PROVIDERS: ATTEND Obstetrics & Gynecology
DX: Z39.2 Encounter for routine postpartum follow-up (principal); R87.610 Atypical squamous cells of undetermined significance on cytologic smear of cervix (ASC-US)

== ENCOUNTER 2017-01-24 09:54 | Emergency (ER) | payer OTHER ==
[~2017-01-24] VITALS: Ht 154.9 cm; Wt 90.1 kg
[~2017-01-24 09:54] MED LIST changes: -ACET-1256 PO; -AMOX500C3 PO; -AZITTAB PO; -CLIN300C2 PO; -CLX20 PO; -CYCL5TAB PO; -ESCI10TA17 PO; -FLX/5 PO; -ONDA8TAB6 PO; -OXYC1TAB3 PO; -PRVHFAIN INH; -VLT500 PO; -ZFRODT/8 SL
[2017-01-24 10:05] VITALS: TEMP 36.7; Ht 154.9 cm; Wt 90.1 kg
[2017-01-24] MEDS ORDERED: IBUPROFEN 600 MG TAB PO STA (10:48)
[2017-01-24] MEDS ORDERED: CYCLOBENZAPRINE HCL 10 MG TAB PO STA (10:48)
--- NOTE | 2017-01-24 11:58 | DIAGNOSTIC IMAGING REPORT ---
L-SPINE MIN 4 VIEWS ROUTINE CLINICAL HISTORY: Back pain after fall. COMPARISON: Lumbar spine radiographs July 12, 2013. FINDINGS: Alignment of the lumbar spine is anatomic. Vertebral body heights are maintained. There is no fracture. Disc spaces are preserved. There are cholecystectomy clips. IMPRESSION: No acute lumbar spine fracture or subluxation. Electronically signed by: Yimi Huddleston M.D. 01/24/2017 11:56 AM Dictated Date/Time: 01/24/2017 11:54 AM
--- NOTE | 2017-01-24 11:59 | DIAGNOSTIC IMAGING REPORT ---
THORACIC SPINE 3 VIEWS ROUTINE CLINICAL HISTORY: Back pain after fall. COMPARISON STUDY: Chest radiograph January 24, 2016. FINDINGS: Alignment of the thoracic spine is anatomic. Vertebral body heights are maintained. There is no acute fracture. Disc spaces are preserved. IMPRESSION: No acute thoracic spine fracture or subluxation. Electronically signed by: Yimi Huddleston M.D. 01/24/2017 11:57 AM Dictated Date/Time: 01/24/2017 11:56 AM
[2017-01-24] MEDS ORDERED: CYCL5TAB PO (12:17)
[2017-01-24 12:40] VITALS: BP 124/82; PULSE 79; O2SAT 96
[2017-01-24 14:50] LABS: URINE APPEARANCE CLEAR (CLEAR); URINE BILIRUBIN NEG (NEG); URINE COLOR YELLOW; URINE EPITHELIAL CELL AUTO >30 /lpf (0-5); URINE NITRITE NEG (NEG); URINE SPECIFIC GRAVITY 1.018 (1.000-1.030); UROBILINOGEN NEG (NEG); ZZUR CULT IF INDIC CLEAN CATCH YES
[2017-01-24 14:52] LABS: MANUAL MICROSCOPIC REQUIRED? NO; REVIEW REQ? NO
--- NOTE | 2017-01-24 17:14 | EMERGENCY ROOM VISIT NOTE ---
History Report prepared by Jaylon: Earnestine Wilkins Under the Supervision of: Dr. Conchita Dorsey M.D. First contact with patient: 10:22 Chief Complaint: BACK PAIN Stated Complaint: BACK PAIN FROM FALL DOWN STAIRS History of Present Illness The patient is a 26 year old female who presents to the Emergency Room with complaints of persistent back pain starting 2 days ago. The pain is present in her mid back from the upper to the lower back. She rates her discomfort at an 8/ 10. She fell down some stairs 2 days ago. She states that she lost her footing and fell. She took Tylenol and ibuprofen 2 days ago to no relief. She denies any abdominal pain. She gave 6 weeks ago. She is not on control. Source of History: patient Onset: 2 days ago Position: back Symptom Intensity: 8/10 Timing: other (persistent) Associated Symptoms: No abdominal pain Review of Systems See HPI for pertinent positives & negatives. A total of 10 systems reviewed and were otherwise negative. Past Medical & Surgical Medical Problems: (1) Anxiety State Nos (2) Asthma, Unspecified (3) Cholecystectomy (4) Depressive Disorder Nec (5) Esophageal Reflux (6) Lumbago (7) Obesity, Nos (8) 25 weeks 3 days (9) Pyelonephritis Nos (10) Tobacco Use Disorder (11) Toxemia of (12) Uterine contractions at greater than 20 weeks of gestation Family History Cancer Diabetes mellitus FHx: gallbladder disease Heart disease Hypertension Kidney disease Kidney stones Lung disease Social History Smoking Status: Never Smoker Alcohol Use: none Drug Use: none Marital Status: Housing Status: lives with family Occupation Status: employed Current/Historical Medications Scheduled PRN Acetaminophen (Tylenol), 1,000 MG PO Q6H PRN for Pain or Fever Albuterol (Ventolin Hfa), 2 PUFFS INH UD PRN for Shortness of Breath Cyclobenzaprine Hcl (Flexeril), 5 MG PO TID PRN for Muscle Spasms Ondansetron (Ondansetron Odt), 8 MG PO BID PRN for Nausea Valacyclovir HCl (Valacyclovir HCl), 500 MG PO DAILY PRN for FLARES Allergies Coded Allergies: Bee Venom (Verified Allergy, Intermediate, Swelling, 01/24/17) [place] (Verified Allergy, Intermediate, Swelling of throat and nausea , 01/24/17) Uncoded Nonscreenable Allergen (Verified Allergy, Unknown, [place] swelling of throat and nausea, 01/24/17) Physical Exam Vital Signs Date Time Temp Pulse Resp B/P Pulse Ox O2 Delivery O2 Flow Rate FiO2 01/24/17 12:40 79 124/82 96 01/24/17 10:05 36.7 79 17 123/85 97 Room Air Physical Exam Vital signs reviewed. General: Well-appearing, in no significant distress. HEENT: No scleral icterus, PERRLA, neck supple. Atraumatic. Cardiovascular: Regular rate and rhythm, no extra sounds. Pulmonary: Clear to auscultation bilaterally, normal work of breathing. Abdomen: Soft, obese, nondistended, positive bowel sounds. Tenderness to palpation of the entire thoracic and lumbar spine. No step offs or deformities. No ecchymosis. Musculoskeletal: Atraumatic, no peripheral edema. Neurologic: Patient awake alert and oriented x 3, full strength in all 4 extremities. Cranial nerves 2 through 12 grossly intact. Skin: Warm, dry, no rash Medical Decision & Procedures ER Provider Diagnostic Interpretation: X-ray results as stated below per interpretation by me and the radiologist: L-SPINE MIN 4 VIEWS ROUTINE CLINICAL HISTORY: Back pain after fall. COMPARISON: Lumbar spine radiographs July 12, 2013. FINDINGS: Alignment of the lumbar spine is anatomic. Vertebral body heights are maintained. There is no fracture. Disc spaces are preserved. There are cholecystectomy clips. IMPRESSION: No acute lumbar spine fracture or subluxation. Electronically signed by: Yimi Huddleston M.D. 01/24/2017 11:56 AM Dictated Date/Time: 01/24/2017 11:54 AM THORACIC SPINE 3 VIEWS ROUTINE CLINICAL HISTORY: Back pain after fall. COMPARISON STUDY: Chest radiograph January 24, 2016. FINDINGS: Alignment of the thoracic spine is anatomic. Vertebral body heights are maintained. There is no acute fracture. Disc spaces are preserved. IMPRESSION: No acute thoracic spine fracture or subluxation. Electronically signed by: Yimi Huddleston M.D. 01/24/2017 11:57 AM Dictated Date/Time: 01/24/2017 11:56 AM Laboratory Results Test 01/24/17 10:40 01/24/17 10:48 Urine Color YELLOW Urine Appearance CLEAR (CLEAR) Urine pH 5.0 (4.5-7.5) Urine Specific [place] 1.018 (1.000-1.030) Urine Protein NEG (NEG) Urine Glucose (UA) NEG (NEG) Urine Ketones NEG (NEG) Urine Occult Blood NEG (NEG) Urine Nitrite NEG (NEG) Urine Bilirubin NEG (NEG) Urine Urobilinogen NEG (NEG) Urine Leukocyte Esterase SMALL (NEG) Urine WBC (Auto) 5-10 /hpf (0-5) Urine RBC (Auto) 0-4 /hpf (0-4) Urine Hyaline Casts (Auto) 0 /lpf (0-5) Urine Epithelial Cells (Auto) >30 /lpf (0-5) Urine Bacteria (Auto) 1+ (NEG) Urine Test NEG (NEG) Date/Time Source Procedure Growth Status 01/24/17 10:40 Urine , Clean Catch Urine Culture - Final MORE THAN THREE TYPES OF ORGANISMS W[place]... Complete Laboratory results per my review. Medications Administered Medications (Trade) Dose Ordered Sig/Victorina Route Start Time Stop Time Status Last Admin Dose Admin Cyclobenzaprine HCl (Flexeril Tab) 10 mg NOW STAT PO 01/24/17 10:48 01/24/17 10:50 DC 01/24/17 11:07 10 MG Ibuprofen (Motrin Tab) 600 mg NOW STAT PO 01/24/17 10:48 01/24/17 10:50 DC 01/24/17 11:08 600 MG ED Course 1045: Past medical records reviewed. The patient was evaluated in room B7. A complete history and physical examination was performed. 1048: Ibuprofen 600 mg PO, Flexeril Tab 10 mg PO. 1230: Upon reevaluation, the patient appeared to have improvement of her symptoms. I discussed findings with her. She verbalized agreement of the treatment plan. She was discharged home. Medical Decision Differential diagnosis: Etiologies such as musculoskeletal, disc herniation, fracture, aortic disease, metastatic disease, cord compression, discitis, infection, renal colic, gastrointestinal, acute exacerbation of chronic back pain, sciatica, cauda equina, as well as others were entertained. This patient was evaluated and appeared to be in no significant distress. Physical examination is consistent with back strain. Lumbar and thoracic spine films are negative. Patient was given a Flexeril tablet and ibuprofen for her discomfort. She was advised of the findings. She has agreed to follow-up. She will return to the ER for worsening of symptoms or any medical concerns. Impression Primary Impression: Strain, back Scribe Attestation The scribe's documentation has been prepared under my direction and personally reviewed by me in its entirety. I confirm that the note above accurately reflects all work, treatment, procedures, and medical decision making performed by me. Departure Information Dispostion Home / Self-Care Prescriptions Cyclobenzaprine Hcl (FLEXERIL) 5 Mg Tab 5 MG PO TID Y for Muscle Spasms, #10 TAB Prov: Conchita Dorsey M.D. 01/24/17 Referrals Ravinder Artis M.D. (PCP) Forms HOME CARE DOCUMENTATION FORM, IMPORTANT VISIT INFORMATION Patient Instructions My [facility] Additional Instructions Diagnosis: Back strain Ibuprofen 600 mg every 6 hours as needed for pain with food. Flexeril 5 mg 3 times daily as needed for muscular spasm. Warm compresses and gentle stretching for relief. Follow-up with your physician this week for reevaluation. Return to the emergency department for worsening of symptoms or any medical concerns. Problem Qualifiers Primary Impression: Strain, back Encounter type: initial encounter Qualified Codes: S39.012A - Strain of muscle, fascia and tendon of lower back, initial encounter
[2017-08-21] MEDS ORDERED: AZITTAB PO (21:58)
== END 2017-01-24 12:40 | disposition home or self-care (01) ==
LOC: C.EDB 09:57
DX: S39.012A Strain of muscle, fascia and tendon of lower back, initial encounter (principal); W10.9XXA Fall (on) (from) unspecified stairs and steps, initial encounter; Y92.89 Other specified places as the place of occurrence of the external cause; Z83.3 Family history of diabetes mellitus; Z82.49 Family history of ischemic heart disease and other diseases of the circulatory system

== ENCOUNTER 2017-02-07 15:00 | Emergency (ER) | payer OTHER ==
[~2017-02-07] VITALS: Ht 157.5 cm; Wt 91.0 kg
[2017-02-07 15:14] VITALS: TEMP 36.7; Ht 157.5 cm; Wt 91.0 kg
[2017-02-07] MEDS ORDERED: HYDROCODONE/ACETAMOPHEN 5/325MG TAB PO STA (15:47)
--- NOTE | 2017-02-07 16:15 | DIAGNOSTIC IMAGING REPORT ---
RIGHT FOOT 3 VIEWS HISTORY: Right foot pain, hit table Right COMPARISON: None. FINDINGS: There is no fracture or dislocation. Soft tissues are unremarkable. No radiopaque foreign bodies. IMPRESSION: No fractures. Electronically signed by: Alvaro Bedolla M.D. 02/07/2017 4:13 PM Dictated Date/Time: 02/07/2017 4:12 PM
--- NOTE | 2017-02-07 16:31 | EMERGENCY ROOM VISIT NOTE ---
History First contact with patient: 15:42 Chief Complaint: FOOT PAIN Stated Complaint: R FOOT PAIN,SWELLING,BLACK AND BLUE History of Present Illness The patient is a 26 year old female who presents to the Emergency Room via private vehicle accompanied by male with complaints of "right foot pain, swelling, lack and blue". The patient states that earlier in the week she struck the right lateral portion of her right foot off of a table accidentally. She states that since then she is actually bumped this region a few more times. She notes at rest the pain is tolerable but if she goes to bear weight on the foot it is very painful. She notes that she is favoring the inside/ medial portion of the right foot. She points to the lateral portion as a location of the pain that she rates as a 10/10 with weightbearing. She's been taking Tylenol and ibuprofen without relief. She denies any chance of . Review of Systems A complete 6-point Review of Systems was discussed with the patient, with pertinent positives and negatives listed in the History of Present Illness. All remaining Review of Systems questions can be considered negative unless otherwise specified. Past Medical/Surgical History Medical Problems: (1) Anxiety State Nos (2) Asthma, Unspecified (3) Cholecystectomy (4) Depressive Disorder Nec (5) Esophageal Reflux (6) Lumbago (7) Obesity, Nos (8) 25 weeks 3 days (9) Pyelonephritis Nos (10) Tobacco Use Disorder (11) Toxemia of (12) Uterine contractions at greater than 20 weeks of gestation Family History Cancer Diabetes mellitus FHx: gallbladder disease Heart disease Hypertension Kidney disease Kidney stones Lung disease Social History Smoking Status: Never Smoker Alcohol Use: none Drug Use: none Marital Status: Housing Status: lives with family Occupation Status: employed Current/Historical Medications Scheduled PRN Acetaminophen (Tylenol), 1,000 MG PO Q6H PRN for Pain or Fever Albuterol (Ventolin Hfa), 2 PUFFS INH UD PRN for Shortness of Breath Ondansetron (Ondansetron Odt), 8 MG PO BID PRN for Nausea Valacyclovir HCl (Valacyclovir HCl), 500 MG PO DAILY PRN for FLARES Allergies Coded Allergies: [place] Flavor (Verified Allergy, Severe, THROAT SWELLS, 02/07/17) Bee Venom (Verified Allergy, Intermediate, Swelling, 02/07/17) [place] (Verified Allergy, Intermediate, Swelling of throat and nausea , 02/07/17) Physical Exam Vital Signs Date Time Temp Pulse Resp B/P Pulse Ox O2 Delivery O2 Flow Rate FiO2 02/07/17 16:46 91 18 121/89 96 02/07/17 15:14 36.7 90 20 125/89 99 Room Air Physical Exam VITAL SIGNS - Vital signs and nursing notes were reviewed. Patient is afebrile , normotensive, non-tachycardic and is saturating well on room air 99%. GENERAL -26-year-old female appearing her stated age who is in no acute distress. Communicates well with provider and answers questions appropriately. SKIN - Without rashes. The skin overlying the right foot is unremarkable. EXTREMITIES - No clubbing or peripheral cyanosis. No pretibial edema present. Patient is neurovascularly intact in the right lower extremity. There is tenderness to palpation overlying the lateral portion of the right foot, primarily overlying the fifth metatarsal extending into the midfoot/anterior foot region. Medical Decision & Procedures ER Provider Diagnostic Interpretation: RIGHT FOOT 3 VIEWS HISTORY: Right foot pain, hit table Right COMPARISON: None. FINDINGS: There is no fracture or dislocation. Soft tissues are unremarkable. No radiopaque foreign bodies. IMPRESSION: No fractures. Electronically signed by: Alvaro Bedolla M.D. 02/07/2017 4:13 PM Dictated Date/Time: 02/07/2017 4:12 PM Medications Administered Medications (Trade) Dose Ordered Sig/Victorina Route Start Time Stop Time Status Last Admin Dose Admin Acetaminophen/ Hydrocodone Bitart ([place] 5/325 Tab) 1 tab NOW STAT PO 02/07/17 15:47 02/07/17 15:49 DC 02/07/17 15:56 1 TAB Medical Decision Patient was seen and evaluated as above. After obtaining a thorough history and physical examination patient requested something for pain therefore was given one [place] tablet and ice for her foot. Radiographs were obtained as indicated. Results as above. I agree with radiologist findings. No acute fractures noted. The patient was fitted with a postop shoe followed by crutches. She was made nonweightbearing and is to follow-up with orthopedics. She was educated upon management. She was educated upon worrisome symptoms which to return, had questions prior to discharge, and was discharged home in good condition. In the evaluation and treatment of this patient, the following differential diagnoses were considered: Lisfranc Fracture, Talus Fracture, Tarsal Fracture, Foot Sprain. Impression Primary Impression: Foot pain Departure Information Dispostion Home / Self-Care Condition GOOD Referrals Ravinder Artis M.D. (PCP) Will Lyn M.D. Patient Instructions My [facility] Additional Instructions You have been treated in the Emergency Department for right foot pain. You have received pain medicine in the emergency department which impairs your ability to operate a vehicle. It is illegal for you to drive after receiving these medicines. For pain control, you can use the following adic-sfw-sffsybp medicines (if >12 yo): - Regular strength (325mg/tab) Tylenol (acetaminophen) 2 tabs every 4-6 hours as needed. Do not exceed 12 tablets in a 24 hour period. Avoid taking more than 3 grams (3000 mg) of Tylenol per day. This includes any other sources of acetaminophen you may take on a regular basis. - Regular strength (200 mg/tab) Advil (ibuprofen) 1-2 tabs every 4-6 hours as needed. Do not exceed a dose of 3200 mg per day. If this is a recent injury (<24 hrs), ice can be applied to the area of pain for the first 3 days to help decrease pain and inflammation. You have been provided the number for an Orthopaedic Surgeon. You should call this number as soon as possible to establish a follow-up visit from today's Emergency Department visit. Keep the ankle/foot brace/splint in place until cleared by Orthopedics. Use the crutches you have been provided to keep ALL weight off of the foot until weight bearing is tolerable. Return to the Emergency Department if your current symptoms worsen despite treatment course outlined above, or if you develop any of the following symptoms : intractable pain despite aforementioned treatment course or new onset of numbness or tingling of the foot. Please return to the emergency department with any new/concerning symptoms.
[2017-02-07 16:46] VITALS: BP 121/89; PULSE 91; O2SAT 96
[2017-08-21] MEDS ORDERED: AZITTAB PO (21:58)
== END 2017-02-07 16:47 | disposition home or self-care (01) ==
LOC: C.EDB 15:01 → C.EDD 16:47
DX: M79.671 Pain in right foot (principal); W22.03XA Walked into furniture, initial encounter; F41.9 Anxiety disorder, unspecified; J45.909 Unspecified asthma, uncomplicated; F32.9 Major depressive disorder, single episode, unspecified; K21.9 Gastro-esophageal reflux disease without esophagitis; E66.9 Obesity, unspecified; Z72.0 Tobacco use; Z80.9 Family history of malignant neoplasm, unspecified; Z83.3 Family history of diabetes mellitus; Z83.79 Family history of other diseases of the digestive system; Z82.49 Family history of ischemic heart disease and other diseases of the circulatory system; Z84.1 Family history of disorders of kidney and ureter; Z83.6 Family history of other diseases of the respiratory system

== ENCOUNTER 2017-02-28 10:57 | Emergency (ER) | payer OTHER ==
[~2017-02-28] VITALS: Ht 154.9 cm; Wt 88.6 kg
[2017-02-28 11:09] VITALS: BP 126/85; PULSE 102; TEMP 36.9; O2SAT 98; Ht 154.9 cm; Wt 88.6 kg
[2017-02-28] MEDS ORDERED: OXYCODONE HCL IR 5 MG TAB (IMMEDIATE RELEASE) PO STA (11:25)
--- NOTE | 2017-02-28 11:26 | EMERGENCY ROOM VISIT NOTE ---
History First contact with patient: 11:11 Chief Complaint: DENTAL PAIN Stated Complaint: PAIN IN MOUTH-2 MOLARS REMOVED Nursing Triage Summary: Pt reports she had wisdom teeth pulled on wednesday continued pain swelling to right face History of Present Illness The patient is a 26 year old female who presents to the Emergency Room with complaints of persistent dental pain ankle swelling after having several teeth pulled last Wednesday by Dr. Mcleod in [place]. The patient reports that she has been taking penicillin and hydrocodone without relief. She even took some ibuprofen and Tylenol without any change in pain. She reports pain with attempted to open her mouth. She denies any fever, chills, headache or throat pain. She rates her discomfort a 10 out of 10. Review of Systems 10 system review was performed and was negative except for pertinent positives and negatives as indicated in history of present illness Past Medical/Surgical History Medical Problems: (1) Anxiety State Nos (2) Asthma, Unspecified (3) Cholecystectomy (4) Depressive Disorder Nec (5) Esophageal Reflux (6) Lumbago (7) Obesity, Nos (8) 25 weeks 3 days (9) Pyelonephritis Nos (10) Tobacco Use Disorder (11) Toxemia of (12) Uterine contractions at greater than 20 weeks of gestation Family History Cancer Diabetes mellitus FHx: gallbladder disease Heart disease Hypertension Kidney disease Kidney stones Lung disease Social History Smoking Status: Never Smoker Alcohol Use: none Drug Use: none Marital Status: Housing Status: lives with family Occupation Status: employed Current/Historical Medications Scheduled PRN Acetaminophen (Tylenol), 1,000 MG PO Q6H PRN for Pain or Fever Albuterol (Ventolin Hfa), 2 PUFFS INH UD PRN for Shortness of Breath Valacyclovir HCl (Valacyclovir HCl), 500 MG PO DAILY PRN for FLARES Allergies Coded Allergies: [place] Flavor (Verified Allergy, Severe, THROAT SWELLS, 02/28/17) Bee Venom (Verified Allergy, Intermediate, Swelling, 02/28/17) [place] (Verified Allergy, Intermediate, Swelling of throat and nausea , 02/28/17) Physical Exam Vital Signs Date Time Temp Pulse Resp B/P Pulse Ox O2 Delivery O2 Flow Rate FiO2 02/28/17 11:09 36.9 102 20 126/85 98 Room Air Physical Exam CONSTITUTIONAL: Healthy and well nourished. Alert and oriented X 3 with positive affect. HEENT: Normocephalic, atraumatic. Pupils equal, round and reactive. No obvious facial edema noted. OROPHARYNX: Examination shows evidence for prior extraction sites. There is no significant erythema, but moderate edema is noted. There is no purulent drainage from the extraction sites. LYMPHATICS: No submandibular or cervical chain adenopathy. NECK: Full active range of motion without discomfort. RESPIRATORY: Clear to auscultation bilaterally with no wheezing, crackles, rhonchi or stridor. CARDIOVASCULAR: Regular rate and rhythm with no murmurs, rubs or gallops. INTEGUMENTARY: No rash or other significant dermatologic conditions noted. NEUROLOGIC: Facial sensations are intact. Medical Decision & Procedures ED Course Patient history and physical exam were performed. Nurse's notes were reviewed. Vital signs were reviewed and normal. The patient will be provided a prescription for Cleocin 300 mg 4 times a day 10 days, and OxyIR 5 mg, dispensed #15 with no refills. No drinking or driving while taking OxyIR. She was instructed to contact her oral surgeon for definitive management. She was advised that the emergency department does not provide postoperative pain management. The patient was happy with plan of care, voiced understanding of all discharge instructions, and rated her discomfort a 7 out of 10 at the conclusion of my exam. She was administered OxyIR 5 mg just prior to discharge. Impression Primary Impression: post extraction dental pain Departure Information Dispostion Home / Self-Care Referrals Alphonse Louis M.D. Forms HOME CARE DOCUMENTATION FORM, IMPORTANT VISIT INFORMATION Patient Instructions My [facility] Additional Instructions Take clindamycin antibiotics as prescribed. Ibuprofen 800 mg and/or Tylenol 1000 mg every 8 hours. You may also alternate these medications for more effective pain relief: Ibuprofen --4 HRS--> Tylenol --4 HRS--> ibuprofen --4 HRS--> Tylenol .... OxyIR if needed for worse pain. Do not drink alcohol or drive while taking OxyIR. You must follow-up with your oral surgeon for further reevaluation and management. The emergency department does not provide postoperative pain management.
[2017-02-28] MEDS ORDERED: OXYC1TAB3 PO (11:36)
[2017-02-28] MEDS ORDERED: CLIN300C2 PO (11:36)
[2017-08-21] MEDS ORDERED: AZITTAB PO (21:58)
== END 2017-02-28 11:39 | disposition home or self-care (01) ==
LOC: C.EDB 10:59 → C.EDD 11:39
DX: K08.89 Other specified disorders of teeth and supporting structures (principal); K08.109 Complete loss of teeth, unspecified cause, unspecified class; F41.9 Anxiety disorder, unspecified; F32.9 Major depressive disorder, single episode, unspecified; J45.909 Unspecified asthma, uncomplicated; M54.5 Low back pain; E66.9 Obesity, unspecified; F17.200 Nicotine dependence, unspecified, uncomplicated; Z83.3 Family history of diabetes mellitus; Z82.49 Family history of ischemic heart disease and other diseases of the circulatory system; Z84.1 Family history of disorders of kidney and ureter

== ENCOUNTER 2017-03-12 20:49 | Emergency (ER) | payer OTHER ==
[~2017-03-12] VITALS: Ht 154.9 cm; Wt 87.5 kg
[~2017-03-12 20:49] MED LIST changes: +OXYC1TAB3 PO; -ZFRODT/8 PO
[2017-03-12 20:52] VITALS: TEMP 36.7; Ht 154.9 cm; Wt 87.5 kg
[2017-03-12] MEDS ORDERED: ACET-1256 PO (20:55)
[2017-03-12] MEDS ORDERED: PRVHFAIN INH (20:55)
[2017-03-12] MEDS ORDERED: VLT500 PO (20:55)
[2017-03-12] MEDS ORDERED: FLX/5 PO (21:01)
[2017-03-12] MEDS ORDERED: ACETAMINOPHEN 500 MG TAB PO STA (21:29)
[2017-03-12] MEDS ORDERED: ONDANSETRON HOME PACK 4MG OD TAB PO ONE (21:30)
[2017-03-12] MEDS ORDERED: ONDANSETRON 4MG OD TAB PO ONE (21:30)
--- NOTE | 2017-03-12 21:53 | DIAGNOSTIC IMAGING REPORT ---
CT OF THE HEAD WITHOUT CONTRAST CLINICAL HISTORY: Fall with head injury. COMPARISON STUDY: Head CT December 23, 2016. CT DOSE: 965.08 mGy.cm TECHNIQUE: Helical axial images of the head were obtained without IV contrast. Automated exposure control was utilized for the study. FINDINGS: No acute intracranial hemorrhage, midline shift or mass effect is present. Ventricular system is normal. Basilar cisterns are patent. There are no extra-axial collections. [place]-white differentiation is maintained. There is no calvarial fracture. Visualized portions of the sinuses and the mastoid air cells are clear. IMPRESSION: 1. No acute intracranial findings. 2. No calvarial fracture. Electronically signed by: Yimi Huddleston M.D. 03/12/2017 9:52 PM Dictated Date/Time: 03/12/2017 9:49 PM
--- NOTE | 2017-03-12 21:57 | DIAGNOSTIC IMAGING REPORT ---
CT OF THE CERVICAL SPINE WITHOUT CONTRAST CLINICAL HISTORY: Fall with neck injury. COMPARISON STUDY: Cervical spine CT July 13, 2016. TECHNIQUE: Helical axial images of the cervical spine were obtained without IV contrast. Sagittal and coronal reconstructions were viewed. FINDINGS: Reversal of the normal cervical lordosis is unchanged since prior exam. The craniocervical junction is intact. There is no acute cervical spine fracture. There is no prevertebral edema. There is no pneumothorax within visualized portions of the upper chest. IMPRESSION: No acute cervical spine fracture or subluxation. Electronically signed by: Yimi Huddleston M.D. 03/12/2017 9:56 PM Dictated Date/Time: 03/12/2017 9:52 PM
[2017-03-12 23:12] VITALS: BP 124/77; PULSE 69; O2SAT 97
--- NOTE | 2017-03-13 02:26 | EMERGENCY ROOM VISIT NOTE ---
History First contact with patient: 21:24 Chief Complaint: FALL Stated Complaint: FELL DOWN STAIRSDIZZY,HEADACHE,NECK/CHEST PAIN,SOB History of Present Illness The patient is a 26 year old female who presents to the Emergency Room with complaints of tripping over the step, falling down and hitting her head this afternoon. Patient states she had a brief LOC. Patient was of headache and neck pain. She describes pain as throbbing, ranging in severity 6 out of 10. Nothing makes it better or worse. She has had prior concussions. Patient complains of lightheadedness and dizziness. Patient denies chest pain, dyspnea , back pain, numbness, tingling, facial pain, dental pain, vision problems, localized weakness, abdominal pain, fever, chills. Patient is tolerating by mouth fluids and food. She is able to ambulate without difficulties. No radiculopathy. Review of Systems See HPI for pertinent positives & negatives. A total of 10 systems reviewed and were otherwise negative. Past Medical/Surgical History Medical Problems: (1) Anxiety State Nos (2) Asthma, Unspecified (3) Cholecystectomy (4) Depressive Disorder Nec (5) Esophageal Reflux (6) Lumbago (7) Obesity, Nos (8) 25 weeks 3 days (9) Pyelonephritis Nos (10) Tobacco Use Disorder (11) Toxemia of (12) Uterine contractions at greater than 20 weeks of gestation Family History Cancer Diabetes mellitus FHx: gallbladder disease Heart disease Hypertension Kidney disease Kidney stones Lung disease Social History Smoking Status: Never Smoker Alcohol Use: none Drug Use: none Marital Status: Housing Status: lives with family Occupation Status: employed Current/Historical Medications Scheduled PRN Acetaminophen (Tylenol), 1,000 MG PO Q6H PRN for Pain or Fever Albuterol (Ventolin Hfa), 2 PUFFS INH UD PRN for Shortness of Breath Cyclobenzaprine HCl (Cyclobenzaprine HCl), 5 MG PO HS PRN for Muscle Spasms Valacyclovir HCl (Valacyclovir HCl), 500 MG PO DAILY PRN for FLARES Allergies Coded Allergies: Douglass Flavor (Verified Allergy, Severe, THROAT SWELLS, 03/12/17) Bee Venom (Verified Allergy, Intermediate, Swelling, 03/12/17) Hawkins (Verified Allergy, Intermediate, Swelling of throat and nausea , 03/12/17) Physical Exam Vital Signs Date Time Temp Pulse Resp B/P Pulse Ox O2 Delivery O2 Flow Rate FiO2 03/12/17 23:12 69 18 124/77 97 Room Air 03/12/17 20:52 36.7 83 18 131/95 97 Room Air Pain Rating (0-10): 2.0 Physical Exam PHYSICAL EXAM: VITALS: Vitals are noted on the nurse's note and reviewed by myself. Vital signs stable. GENERAL: Pleasant female, in no acute distress, nondiaphoretic, well-developed well-nourished. SKIN: The skin was without obvious lacerations or abrasions. Capillary reflex less than 2 seconds. HEAD: Normocephalic atraumatic. EARS: External auditory canals clear, tympanic membranes pearly osuna without erythema or effusion bilaterally. No hemotympanums. No nicole sign. No mastoid tenderness. EYES: Pupils equal round and reactive to light and accommodation. Conjunctivae without injection, sclerae without icterus. Extraocular movements intact. NOSE: Patent, turbinates without inflammation or discharge. No sinus tenderness. No septal hematoma or bleeding. FACE: No facial bone tenderness. Full range of motion of the jaw without tenderness. MOUTH: Mucous membranes moist. Pharynx without erythema or exudate. Uvula midline. Airway patent. Tongue does not deviate. NECK: Supple without nuchal rigidity. Cervical spine is nontender. Paraspinous cervical muscles tender to palpation Full range of motion of the neck without tenderness. No JVD. HEART: Regular rate and rhythm without murmurs gallops or rubs. LUNGS: Clear to auscultation bilaterally without wheezes, rales or rhonchi. No dullness to percussion. No retractions or accessory muscle use. No chest wall tenderness. ABDOMEN: Positive bowel sounds x 4. Normal tympanic percussion. Soft, nontender, without masses or organomegaly. No guarding or rebound tenderness. MUSCULOSKELETAL: No tenderness of the thoracic or lumbar spine. Full range of motion without tenderness to palpation in all extremities. Normal gait. Strength 5/5 throughout. Peripheral pulses 2+. NEURO: Patient was alert and oriented to person place and time. Normal Mini- Mental status exam. Normal sensation to light and sharp touch. Negative Romberg and pronator drift. Cerebellar function intact. No focal neurological deficits. Medical Decision & Procedures Medications Administered Medications (Trade) Dose Ordered Sig/Victorina Route Start Time Stop Time Status Last Admin Dose Admin Acetaminophen (Tylenol Tab) 1,000 mg NOW STAT PO 03/12/17 21:29 03/12/17 21:34 DC 03/12/17 21:40 1,000 MG Ondansetron HCl (ZOFRAN ODT 4MG Home Pack) 1 homepack UD ONCE PO 03/12/17 21:30 03/12/17 21:34 DC 03/12/17 23:09 1 HOMEPACK Ondansetron HCl (Zofran Odt) 4 mg ONE ONCE PO 03/12/17 21:30 03/12/17 21:34 DC 03/12/17 21:39 4 MG ED Course Prior records/ancillary studies reviewed. Triage Nursing notes reviewed. Additional history obtained from []. The patient's history was concerning for traumatic head injury Differential diagnosis: Etiologies such as concussion, contusion, fracture, subdural hematoma, epidural hematoma, intraparenchymal hemorrhage, as well as other traumatic pathologies were entertained. Physical examination findings: As above. ER treatment provided: P.o. Tylenol Zofran ODT On reassessment the patient felt better. Diagnostics interpreted by me: Imaging studies: CLINICAL HISTORY: Fall with neck injury. COMPARISON STUDY: Cervical spine CT July 13, 2016. TECHNIQUE: Helical axial images of the cervical spine were obtained without IV contrast. Sagittal and coronal reconstructions were viewed. FINDINGS: Reversal of the normal cervical lordosis is unchanged since prior exam. The craniocervical junction is intact. There is no acute cervical spine fracture. There is no prevertebral edema. There is no pneumothorax within visualized portions of the upper chest. IMPRESSION: No acute cervical spine fracture or subluxation. Electronically signed by: Yimi Huddleston M.D. CT OF THE HEAD WITHOUT CONTRAST CLINICAL HISTORY: Fall with head injury. COMPARISON STUDY: Head CT December 23, 2016. CT DOSE: 965.08 mGy.cm TECHNIQUE: Helical axial images of the head were obtained without IV contrast. Automated exposure control was utilized for the study. FINDINGS: No acute intracranial hemorrhage, midline shift or mass effect is present. Ventricular system is normal. Basilar cisterns are patent. There are no extra-axial collections. Osuna-white differentiation is maintained. There is no calvarial fracture. Visualized portions of the sinuses and the mastoid air cells are clear. IMPRESSION: 1. No acute intracranial findings. 2. No calvarial fracture. Electronically signed by: Yimi Huddleston M.D. It appears the patient has a concussion. Patient was neurovascular and neurologically intact. She felt much better to be medicated as above. She is counseled on head injury signs and symptoms and verbalized understanding of this. She was advised she still symptomatic in a week to follow up with concussion clinic or family care or here in the ER sooner for headache, fevers, confusion, worsening signs or symptoms or as needed. Patient did not have acute abdomen on exam. No other injuries are noted. She is well-appearing. The fall was 10 hours ago.By the evaluation outlined above emergent etiologies such as fracture, subdural hematoma, epidural hematoma, intraparenchymal hemorrhage, as well as others were deemed relatively unlikely. The pt informed about the findings as listed above. All questions were answered and pleased with the treatment. Return instructions were outlined and the patient was discharged in stable condition. Outpatient Prescription Management: Zandra Referral: The patient was referred back to their primary care physician for follow-up in 2 to 3 days for a recheck of the current condition. Medical Decision As above Impression Primary Impression: Concussion Additional Impressions: Fall Neck strain Departure Information Dispostion Home / Self-Care Condition GOOD Forms HOME CARE DOCUMENTATION FORM, IMPORTANT VISIT INFORMATION Patient Instructions Concussion, [facility] Additional Instructions Read head injury handout and return for any symptoms. Tylenol 1000 mg as needed for pain (Maximum 3000 mg Tylenol in 24 hr period). Avoid alcohol and contact sports/activities for one week and follow up with family doctor prior to returning to these activities if still symptomatic. Ice and elevate head. If your symptoms persist more than a week then follow up with the concussion clinic. Call [phone]. Return to ER sooner for headache, fevers, confusion, worsening signs or symptoms or as needed. Problem Qualifiers Primary Impression: Concussion Encounter type: initial encounter Loss of consciousness presence/duration: with LOC of 30 min or less Qualified Codes: S06.0X1A - Concussion with loss of consciousness of 30 minutes or less, initial encounter
[2017-08-21] MEDS ORDERED: AZITTAB PO (21:58)
== END 2017-03-12 23:13 | disposition home or self-care (01) ==
LOC: C.EDB 20:50 → C.EDD 23:13
DX: S06.0X1A Concussion with loss of consciousness of 30 minutes or less, initial encounter (principal); S16.1XXA Strain of muscle, fascia and tendon at neck level, initial encounter; W01.0XXA Fall on same level from slipping, tripping and stumbling without subsequent striking against object, initial encounter; F41.9 Anxiety disorder, unspecified; J45.909 Unspecified asthma, uncomplicated; F32.9 Major depressive disorder, single episode, unspecified; K21.9 Gastro-esophageal reflux disease without esophagitis; M54.5 Low back pain; E66.9 Obesity, unspecified; F17.200 Nicotine dependence, unspecified, uncomplicated; Z83.3 Family history of diabetes mellitus; Z82.49 Family history of ischemic heart disease and other diseases of the circulatory system; Z84.1 Family history of disorders of kidney and ureter

== ENCOUNTER 2017-03-22 12:17 | Emergency (ER) | payer OTHER ==
[~2017-03-22] VITALS: Ht 154.9 cm; Wt 89.3 kg
[~2017-03-22 12:17] MED LIST changes: +ACET-1256 PO; +FLX/5 PO; -OXYC1TAB3 PO; +PRVHFAIN INH; +VLT500 PO
[2017-03-22 12:28] VITALS: Ht 154.9 cm; Wt 89.3 kg
[2017-03-22] MEDS ORDERED: GI COCKTAIL PO STA (12:47)
[2017-03-22] MEDS ORDERED: SODIUM CHLORIDE 0.9% 500ML 500 ML IV STA (12:47)
[2017-03-22] MEDS ORDERED: LIDOCAINE HCL 2% VISC SOLN 20 ML UDC ONE (12:59)
[2017-03-22] MEDS ORDERED: ALUMINUM/MAGNESIUM SUSP 30 ML UDC ONE (12:59)
[2017-03-22 13:02] LABS: HEMATOCRIT 39.5 % (37-47); MEAN CELL VOLUME 82.3 fL (80-100); MEAN CORPUSCULAR HEMOGLOBIN 27.7 pg (25-34); MEAN CORPUSCULAR HGB CONC 33.7 g/dl (32-36); MEAN PLATELET VOLUME 9.1 fL (7.4-10.4); PLATELET COUNT 258 K/uL (130-400); WHITE BLOOD COUNT 6.87 K/uL (4.8-10.8)
[2017-03-22 13:15] LABS: ALT/SGPT 64 U/L (12-78); AST/SGOT 49 U/L (15-37); BLOOD UREA NITROGEN 8 mg/dl (7-18); BUN/CREATININE RATIO 11.7 (10-20); CALCIUM 8.5 mg/dl (8.5-10.1); CARBON DIOXIDE 28 mmol/L (21-32); CHLORIDE 107 mmol/L (98-107); CREATININE 0.68 mg/dl (0.60-1.20); GLUCOSE 94 mg/dl (70-99); POTASSIUM 3.8 mmol/L (3.5-5.1); SODIUM 143 mmol/L (136-145)
[2017-03-22 13:18] LABS: ALKALINE PHOSPHATASE 103 U/L (45-117)
--- NOTE | 2017-03-22 13:30 | DIAGNOSTIC IMAGING REPORT ---
PA CHEST RADIOGRAPH AND UPRIGHT AND SUPINE AP RADIOGRAPHS OF THE ABDOMEN CLINICAL HISTORY: Abdominal pain and nausea. COMPARISON STUDY: Chest radiograph January 24, [address] of the abdomen and pelvis March 23, 2016. FINDINGS: Lower lung predominant interstitial thickening is unchanged and likely reflects normal vessels. Cardiac size is at the upper limits of normal. There is no evidence of pulmonary edema. No pneumothorax or pleural effusion is present. There are cholecystectomy clips. There is no free air. Bowel gas pattern is normal. IMPRESSION: 1. No free air or evidence of bowel obstruction. 2. No acute cardiopulmonary findings. Electronically signed by: Yimi Huddleston M.D. 03/22/2017 1:29 PM Dictated Date/Time: 03/22/2017 1:28 PM
[2017-03-22] MEDS ORDERED: CLX20 PO (14:32)
[2017-03-22 15:11] LABS: URINE APPEARANCE CLEAR (CLEAR); URINE BILIRUBIN NEG (NEG); URINE COLOR YELLOW; URINE EPITHELIAL CELL AUTO >30 /lpf (0-5); URINE NITRITE NEG (NEG); URINE PH 7.5 (4.5-7.5); URINE SPECIFIC GRAVITY 1.024 (1.000-1.030); UROBILINOGEN NEG (NEG)
[2017-03-22 15:13] LABS: PREG INTERNAL NEGATIVE QC NEG CLEAR BACKGROUND; PREG INTERNAL POSITIVE QC POS CONTROL LINE
[2017-03-22 15:16] LABS: MANUAL MICROSCOPIC REQUIRED? NO; REVIEW REQ? YES
[2017-03-22 15:25] VITALS: TEMP 36.7
[2017-03-22] MEDS ORDERED: ACETAMINOPHEN 500 MG TAB PO STA (15:26)
[2017-03-22 15:33] LABS: BASO % 0.4 %; BASO ABS # 0.03 K/uL (0-0.2); COMPLETE YES; EOS % 2.3 %; IG% 0.1 %; LYMPH % 53.9 %; NEUT % 36.3 %
[2017-03-22 15:38] VITALS: BP 118/76; PULSE 84; O2SAT 93
--- NOTE | 2017-03-22 20:13 | EMERGENCY ROOM VISIT NOTE ---
History Report prepared by Jaylon: Florencia Swartz Under the Supervision of: Dr. Jan Jones D.O. First contact with patient: 12:38 Chief Complaint: CHEST PAIN Stated Complaint: epigastric pain Nursing Triage Summary: States woke up this morning with severe epigastric pain. Reports vomiting x2. States pain does not radiate anywhere. History of Present Illness The patient is a 26 year old female who presents to the Emergency Room with complaints of resolved epigastric abdominal pain that started this morning. The patient came to the ED via ambulance from home. She was given 6 mg of morphine en route to the ED, which relieved her pain. She describes the pain as sharp and states that when she first got the pain she was unable to move. The patient has never experienced this type of pain in the past. She is also experiencing nausea and vomiting, but denies diarrhea. She also denies chest pain and pain or burning with urination. The patient is also experiencing shortness of breath with the pain, but denies any shortness of breath otherwise. The patient's last bowel movement was this morning right before the ambulance got there. 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 The patient has a history of a cholecystectomy, but still has her appendix. She states that she had her son 3 months ago and she adds that the was uncomplicated. The patient denies any recent travel. Source of History: patient Onset: this morning Position: abdomen (epigastric) Quality: sharp Timing: resolved Associated Symptoms: + SOB (with the pain), + nausea, + vomiting, No chest pain, No diarrhea, No urinary symptoms (pain or burning with urination) Review of Systems See HPI for pertinent positives & negatives. A total of 10 systems reviewed and were otherwise negative. Past Medical & Surgical Medical Problems: (1) Anxiety State Nos (2) Asthma, Unspecified (3) Cholecystectomy (4) Depressive Disorder Nec (5) Esophageal Reflux (6) Lumbago (7) Obesity, Nos (8) 25 weeks 3 days (9) Pyelonephritis Nos (10) Tobacco Use Disorder (11) Toxemia of (12) Uterine contractions at greater than 20 weeks of gestation Family History Cancer Diabetes mellitus FHx: gallbladder disease Heart disease Hypertension Kidney disease Kidney stones Lung disease Social History Smoking Status: Never Smoker Alcohol Use: none Drug Use: none Marital Status: Housing Status: lives with family Occupation Status: employed Current/Historical Medications Scheduled Citalopram (Citalopram Hydrobromide), 20 MG PO DAILY Scheduled PRN Acetaminophen (Tylenol), 1,000 MG PO Q6H PRN for Pain or Fever Albuterol (Ventolin Hfa), 2 PUFFS INH UD PRN for Shortness of Breath Cyclobenzaprine HCl (Cyclobenzaprine HCl), 5 MG PO HS PRN for Muscle Spasms Valacyclovir HCl (Valacyclovir HCl), 500 MG PO DAILY PRN for FLARES Allergies Coded Allergies: Douglass Flavor (Verified Allergy, Severe, THROAT SWELLS, 03/22/17) Bee Venom (Verified Allergy, Intermediate, Swelling, 03/22/17) Randall (Verified Allergy, Intermediate, Swelling of throat and nausea , 03/22/17) Physical Exam Vital Signs Date Time Temp Pulse Resp B/P (MAP) Pulse Ox O2 Delivery O2 Flow Rate FiO2 03/22/17 15:38 84 18 118/76 93 03/22/17 15:25 36.7 03/22/17 14:24 82 15 121/77 97 Room Air 03/22/17 12:28 86 13 120/81 91 Room Air 03/22/17 12:28 91 Room Air 03/22/17 12:23 74 Physical Exam GENERAL: alert, sitting up in bed, disheveled, tired appearing, no acute distress, non-toxic EYE EXAM: normal conjunctiva OROPHARYNX: no exudate, no erythema, lips, buccal mucosa, and tongue normal and mucous membranes are moist NECK: supple, no nuchal rigidity, no adenopathy, non-tender LUNGS: Clear to auscultation. Normal chest wall mechanics HEART: no murmurs, S1 normal and S2 normal ABDOMEN: abdomen soft, minimal tenderness in epigastric, normo-active bowel sounds, no masses, no rebound or guarding. BACK: Back is symmetrical on inspection and there is no deformity, no midline tenderness, no CVA tenderness. SKIN: no rashes and no bruising UPPER EXTREMITIES: upper extremities are grossly normal. LOWER EXTREMITIES: No pitting edema, calves equal bilaterally. NEURO EXAM: Normal sensorium, cranial nerves II-XII grossly intact, normal speech, no gross weakness of arms, no gross weakness of legs. Medical Decision & Procedures ER Provider Diagnostic Interpretation: Radiology results as stated below per my review and the radiologist's interpretation: PA CHEST RADIOGRAPH AND UPRIGHT AND SUPINE AP RADIOGRAPHS OF THE ABDOMEN FINDINGS: Lower lung predominant interstitial thickening is unchanged and likely reflects normal vessels. Cardiac size is at the upper limits of normal. There is no evidence of pulmonary edema. No pneumothorax or pleural effusion is present. There are cholecystectomy clips. There is no free air. Bowel gas pattern is normal. IMPRESSION: 1. No free air or evidence of bowel obstruction. 2. No acute cardiopulmonary findings. Electronically signed by: Yimi Huddleston M.D. 03/22/2017 1:29 PM Dictated Date/Time: 03/22/2017 1:28 PM Laboratory Results 03/22/17 12:18 Red Blood Count 4.80, Mean Corpuscular Volume 82.3, Mean Corpuscular Hemoglobin 27.7, Mean Corpuscular Hemoglobin Concent 33.7, Mean Platelet Volume 9.1, Neutrophils (%) (Auto) 36.3, Lymphocytes (%) (Auto) 53.9, Monocytes (%) (Auto) 7.0, Eosinophils (%) (Auto) 2.3, Basophils (%) (Auto) 0.4, Neutrophils # (Auto) 2.49, Lymphocytes # (Auto) 3.70, Monocytes # (Auto) 0.48, Eosinophils # (Auto) 0.16, Basophils # (Auto) 0.03 03/22/17 12:18 Test 03/22/17 12:18 03/22/17 14:45 White Blood Count 6.87 K/uL (4.8-10.8) Red Blood Count 4.80 M/uL (4.2-5.4) Hemoglobin 13.3 g/dL (12.0-16.0) Hematocrit 39.5 % (37-47) Mean Corpuscular Volume 82.3 fL (80-100) Mean Corpuscular Hemoglobin 27.7 pg (25-34) Mean Corpuscular Hemoglobin Concent 33.7 g/dl (32-36) Platelet Count 258 K/uL (130-400) Mean Platelet Volume 9.1 fL (7.4-10.4) Neutrophils (%) (Auto) 36.3 % Lymphocytes (%) (Auto) 53.9 % Monocytes (%) (Auto) 7.0 % Eosinophils (%) (Auto) 2.3 % Basophils (%) (Auto) 0.4 % Neutrophils # (Auto) 2.49 K/uL (1.4-6.5) Lymphocytes # (Auto) 3.70 K/uL (1.2-3.4) Monocytes # (Auto) 0.48 K/uL (0.11-0.59) Eosinophils # (Auto) 0.16 K/uL (0-0.5) Basophils # (Auto) 0.03 K/uL (0-0.2) RDW Standard Deviation 39.1 fL (36.4-46.3) RDW Coefficient of Variation 12.9 % (11.5-14.5) Immature Granulocyte % (Auto) 0.1 % Immature Granulocyte # (Auto) 0.01 K/uL (0.00-0.02) Blood Smear Review Anion Gap 8.0 mmol/L (3-11) Est Creatinine Clear Calc Drug Dose 126.3 ml/min Estimated GFR () 138.9 Estimated GFR (Non- 119.9 BUN/Creatinine Ratio 11.7 (10-20) Calcium Level 8.5 mg/dl (8.5-10.1) Total Bilirubin 0.3 mg/dl (0.2-1) Direct Bilirubin < 0.1 mg/dl (0-0.2) Aspartate Amino Transf (AST/SGOT) 49 U/L (15-37) Alanine Aminotransferase (ALT/SGPT) 64 U/L (12-78) Alkaline Phosphatase 103 U/L (45-117) Total Protein 7.7 gm/dl (6.4-8.2) Albumin 3.6 gm/dl (3.4-5.0) Lipase 201 U/L (73-393) Urine Color YELLOW Urine Appearance CLEAR (CLEAR) Urine pH 7.5 (4.5-7.5) Urine Specific [place] 1.024 (1.000-1.030) Urine Protein NEG (NEG) Urine Glucose (UA) NEG (NEG) Urine Ketones NEG (NEG) Urine Occult Blood 1+ (NEG) Urine Nitrite NEG (NEG) Urine Bilirubin NEG (NEG) Urine Urobilinogen NEG (NEG) Urine Leukocyte Esterase NEG (NEG) Urine WBC (Auto) 1-5 /hpf (0-5) Urine RBC (Auto) 5-10 /hpf (0-4) Urine Hyaline Casts (Auto) 10-30 /lpf (0-5) Urine Epithelial Cells (Auto) >30 /lpf (0-5) Urine Bacteria (Auto) NEG (NEG) Urine Renal Epithelial Cells /lpf (0-5) Urine Test NEG (NEG) Laboratory results per my review. Medications Administered Medications (Trade) Dose Ordered Sig/Victorina Route Start Time Stop Time Status Last Admin Dose Admin Sodium Chloride 500 ml @ 999 mls/hr Q31M STAT IV 03/22/17 12:47 03/22/17 13:17 DC 03/22/17 12:47 999 MLS/HR Al Hydroxide/Mg Hydroxide (Maalox Susp) 30 ml STK-MED ONCE .ROUTE 03/22/17 12:59 03/22/17 13:00 DC 03/22/17 13:02 30 ML Lidocaine HCl (Viscous Lidocaine 2% Soln) 20 ml STK-MED ONCE .ROUTE 03/22/17 12:59 03/22/17 13:00 DC 03/22/17 13:02 20 ML Acetaminophen (Tylenol Tab) 1,000 mg NOW STAT PO 03/22/17 15:26 03/22/17 15:27 DC 03/22/17 15:35 1,000 MG ECG Indication: abdominal pain Rate (beats per minute): 73 Rhythm: sinus rhythm Findings: no ectopy, other (normal axis, R-R' in V1) ED Course ED COURSE: Vital signs were reviewed and showed normal. The patients medical record was reviewed The above diagnostic studies were performed and reviewed. ED treatments and interventions as stated above. 1240: The patient was evaluated in room B9. A complete history and physical examination was performed. 1247: Ordered Sodium Chloride 500 ml @ 999 mls/hr IV 1259: Ordered Lidocaine HCl 20 ml PO, Maalox Susp 30 ml PO 1340: I reassessed the patient. 1440: I reevaluated the patient. She was just catheterized for a urine sample. 1523: Upon reevaluation, the patient is doing well. She denies any shortness of breath. I discussed my findings with the patient and she understands and agrees with the treatment plan. Based on the patients age, coexisting illnesses, exam and lab findings the decision to treat as an outpatient was made. The patient remained stable while under my care. The patient appeared well at the time of discharge. 1526: Ordered Tylenol Tab 1000 mg PO Medical Decision Differential diagnoses includes but is not limited to gastritis, peptic ulcer disease, GERD, gallbladder disease, pancreatitis, small bowel obstruction, acute coronary syndrome, pericarditis, ischemic bowel, irritable bowel disease, irritable bowel syndrome, appendicitis, diverticulitis, malignancy, hernia, urinary tract infection, torsion, /ectopic , perforation, trauma, infectious. Patient is a 26-year-old female who presents the ER for sudden onset of epigastric abdominal pain associated with nausea. On exam she has no clear reproducible pain. No signs peritonitis. Vitals are unremarkable. She was extremely sleepy upon presentation although she had received IV morphine prior to arrival 6 mg. Labs show no significant leukocytosis or anemia. BMP along with LFTs, bilirubin and lipase are normal. UA was contaminated with multiple epithelial cells. Obstruction series was unremarkable. She was given Toradol along with normal saline and Zofran. She did feel fairly improved. She has a previous cholecystectomy. She still has her appendix. Based on her labs and improved symptoms I do not feel the need to CT her abdomen as there is no signs peritonitis. She was discharged with her significant other to follow-up with her PCP for repeat abdominal check in 24 hours. Discussed with Pt concerning signs and symptoms to watch out for. Pt was instructed to follow up with their PCP and discussed with the patient their option to return to the ED at anytime for persistent or worsening symptoms. The appropriate anticipatory guidance and out-patient management, including indications for return to the emergency department, were explained at length to the patient and understood. Impression Primary Impression: Epigastric abdominal pain Scribe Attestation The scribe's documentation has been prepared under my direction and personally reviewed by me in its entirety. I confirm that the note above accurately reflects all work, treatment, procedures, and medical decision making performed by me. Departure Information Dispostion Home / Self-Care Referrals Ravinder Artis M.D. (PCP) Forms HOME CARE DOCUMENTATION FORM, IMPORTANT VISIT INFORMATION Patient Instructions Abdominal Pain - [facility] Additional Instructions Please follow up with your primary care doctor with in the next 24 hours. Any worsening of your symptoms, please return to the ED immediately. This includes fevers greater than 100.4, persistent nausea vomiting, worsening abdominal pain , bloating and vomiting, or any other concerning signs or symptoms from your standpoint.
[2017-08-21] MEDS ORDERED: AZITTAB PO (21:58)
== END 2017-03-22 15:40 | disposition home or self-care (01) ==
LOC: EDBD 12:17 → C.EDB 12:21
DX: R10.13 Epigastric pain (principal); R11.0 Nausea; F41.9 Anxiety disorder, unspecified; J45.909 Unspecified asthma, uncomplicated; F32.9 Major depressive disorder, single episode, unspecified; K21.9 Gastro-esophageal reflux disease without esophagitis; F17.200 Nicotine dependence, unspecified, uncomplicated; Z90.49 Acquired absence of other specified parts of digestive tract; Z87.440 Personal history of urinary (tract) infections; Z79.899 Other long term (current) drug therapy; Z91.030 Bee allergy status; Z91.018 Allergy to other foods; Z80.9 Family history of malignant neoplasm, unspecified; Z83.3 Family history of diabetes mellitus; Z83.79 Family history of other diseases of the digestive system; Z82.49 Family history of ischemic heart disease and other diseases of the circulatory system; Z84.1 Family history of disorders of kidney and ureter

== ENCOUNTER 2017-04-13 19:31 | Emergency (ER) | payer OTHER ==
[~2017-04-13] VITALS: Ht 157.5 cm; Wt 89.8 kg
[~2017-04-13 19:31] MED LIST changes: +CLX20 PO
[2017-04-13 19:41] VITALS: Ht 157.5 cm; Wt 89.8 kg
[2017-04-13] MEDS ORDERED: ONDA8TAB6 PO (19:56)
[2017-04-13] MEDS ORDERED: ESCI10TA17 PO (19:56)
[2017-04-13] MEDS ORDERED: KETOROLAC TROMETHAMINE 30 MG/ML VIAL IV STA (19:58)
[2017-04-13] MEDS ORDERED: ONDANSETRON INJ 2 MG/ML 2 ML VIAL IV STA (19:58)
[2017-04-13] MEDS ORDERED: SODIUM CHLORIDE 0.9% 1000ML 1,000 ML IV STA (19:58)
[2017-04-13 20:24] LABS: BASO % 0.5 %; BASO ABS # 0.04 K/uL (0-0.2); COMPLETE YES; EOS % 4.7 %; HEMATOCRIT 41.1 % (37-47); IG% 0.1 %; LYMPH % 47.2 %; LYMPH ABS # 3.68 K/uL (1.2-3.4); MEAN CELL VOLUME 82.9 fL (80-100); MEAN CORPUSCULAR HGB CONC 33.8 g/dl (32-36); MEAN PLATELET VOLUME 9.4 fL (7.4-10.4); MONO % 8.6 %; NEUT % 38.9 %; PLATELET COUNT 272 K/uL (130-400); RED BLOOD COUNT 4.96 M/uL (4.2-5.4); WHITE BLOOD COUNT 7.79 K/uL (4.8-10.8)
[2017-04-13 20:33] LABS: URINE APPEARANCE CLEAR (CLEAR); URINE BILIRUBIN NEG (NEG); URINE COLOR YELLOW; URINE EPITHELIAL CELL AUTO >30 /lpf (0-5); URINE NITRITE NEG (NEG); URINE SPECIFIC GRAVITY 1.025 (1.000-1.030); UROBILINOGEN NEG (NEG); ZZUR CULT IF INDIC CLEAN CATCH YES
[2017-04-13 20:41] LABS: ALT/SGPT 69 U/L (12-78); BLOOD UREA NITROGEN 14 mg/dl (7-18); BUN/CREATININE RATIO 20.7 (10-20); CALCIUM 8.9 mg/dl (8.5-10.1); CARBON DIOXIDE 26 mmol/L (21-32); CHLORIDE 106 mmol/L (98-107); CREATININE 0.67 mg/dl (0.60-1.20); GLUCOSE 91 mg/dl (70-99); POTASSIUM 3.9 mmol/L (3.5-5.1); SODIUM 139 mmol/L (136-145)
[2017-04-13 20:43] LABS: ALKALINE PHOSPHATASE 110 U/L (45-117); AST/SGOT 31 U/L (15-37)
[2017-04-13 20:43] LABS: MANUAL MICROSCOPIC REQUIRED? NO; REVIEW REQ? NO
--- NOTE | 2017-04-13 20:52 | DIAGNOSTIC IMAGING REPORT ---
ABDOMEN AND PELVIS CT WITHOUT CONTRAST CT DOSE: 1511.10 mGy.cm HISTORY: J flank pain TECHNIQUE: Multiaxial CT images of the abdomen and pelvis were performed without the use of intravenous and oral contrast according to the standard department stone protocol. COMPARISON STUDY: None. FINDINGS: The lung bases are clear. The unenhanced liver, gallbladder, spleen, pancreas, and adrenal glands are unremarkable. No renal stones or hydronephrosis. No bowel wall thickening or obstruction. The pelvic organs are unremarkable. No suspicious lytic or blastic osseous lesions. IMPRESSION: No renal stones or hydronephrosis. Nonobstructive bowel pattern. Scattered colonic diverticuli with no evidence for diverticulitis. Electronically signed by: Christopher Perla M.D. 04/13/2017 8:51 PM Dictated Date/Time: 04/13/2017 8:45 PM
[2017-04-13 21:00] VITALS: BP 138/84; PULSE 74; TEMP 36.7; O2SAT 98
--- NOTE | 2017-04-13 21:54 | EMERGENCY ROOM VISIT NOTE ---
History Report prepared by Jaylon: Caleb Zimmerman Under the Supervision of: Henrietta ButlerO. First contact with patient: 19:56 Chief Complaint: ABDOMINAL PAIN Stated Complaint: ABD PAIN, R SIDE PAIN FEVER NAUSEA,LWR BACK PAIN Nursing Triage Summary: pt reports mid to R abdominal pain that radiates into back , pt denies urinary sx , + Nausea since this AM History of Present Illness The patient is a 26 year old female who presents to the Emergency Room with complaints of worsening right sided abdominal pain that began this morning. She rates her pain moderate in severity. Her pain began in the middle right quadrant , but has since radiated into her back and her RLQ. She is very nauseated, but without emesis. She denies any urinary symptoms as well. Her last menstrual period was 4 weeks ago. She has a past medical history of a cholecystectomy. Source of History: patient Onset: this morning Position: abdomen (RLQ) Symptom Intensity: moderate Quality: sharp Timing: constant, worsening Associated Symptoms: + nausea, + back pain, No vomiting, No urinary symptoms Review of Systems See HPI for pertinent positives & negatives. A total of 10 systems reviewed and were otherwise negative. Past Medical & Surgical Medical Problems: (1) Anxiety State Nos (2) Asthma, Unspecified (3) Cholecystectomy (4) Depressive Disorder Nec (5) Esophageal Reflux (6) Lumbago (7) Obesity, Nos (8) 25 weeks 3 days (9) Pyelonephritis Nos (10) Tobacco Use Disorder (11) Toxemia of (12) Uterine contractions at greater than 20 weeks of gestation Family History Cancer Diabetes mellitus FHx: gallbladder disease Heart disease Hypertension Kidney disease Kidney stones Lung disease Social History Smoking Status: Never Smoker Smokeless Tobacco Use: No Alcohol Use: none Drug Use: none Marital Status: Housing Status: lives with family Occupation Status: employed Current/Historical Medications Scheduled Escitalopram (Lexapro), 10 MG PO DAILY Scheduled PRN Acetaminophen (Tylenol), 1,000 MG PO Q6H PRN for Pain or Fever Albuterol (Ventolin Hfa), 2 PUFFS INH UD PRN for Shortness of Breath Cyclobenzaprine HCl (Cyclobenzaprine HCl), 5 MG PO HS PRN for Muscle Spasms Ondansetron Hcl (Zofran), 8 MG PO Q8 PRN for Nausea Valacyclovir HCl (Valacyclovir HCl), 500 MG PO DAILY PRN for FLARES Allergies Coded Allergies: [place] Flavor (Verified Allergy, Severe, THROAT SWELLS, 04/13/17) Bee Venom (Verified Allergy, Intermediate, Swelling, 04/13/17) [place] (Verified Allergy, Intermediate, Swelling of throat and nausea , 04/13/17) Physical Exam Vital Signs Date Time Temp Pulse Resp B/P (MAP) Pulse Ox O2 Delivery O2 Flow Rate FiO2 04/13/17 21:00 36.7 74 18 138/84 98 Room Air 04/13/17 20:10 84 16 118/74 97 04/13/17 19:41 36.7 81 18 131/90 98 Room Air Physical Exam CONSTITUTIONAL/VITAL SIGNS: Reviewed / noted above. GENERAL: Non-toxic in appearance. INTEGUMENTARY: Warm, dry, and [place]. HEAD: Normocephalic. EYES: without scleral icterus or trauma. ENT/OROPHARYNX: clear and moist. LYMPHADENOPATHY/NECK: Is supple without lymphadenopathy or meningismus. RESPIRATORY: Lungs clear and equal. CARDIOVASCULAR: Regular rate and rhythm. GI/ABDOMEN: Soft with tenderness to the right mid-lower abdomen. No organomegaly or pulsatile mass. No rebound or guarding. Normal bowel sounds. EXTREMITIES: Warm and well perfused. BACK: No CVA tenderness. NEUROLOGICAL: Intact without focal deficits. PSYCHIATRIC: normal affect. MUSCULOSKELETAL: Normally developed with good muscle tone. Medical Decision & Procedures ER Provider Diagnostic Interpretation: Radiology results as stated below per my review and radiologist interpretation: ABDOMEN AND PELVIS CT WITHOUT CONTRAST CT DOSE: 1511.10 mGy.cm HISTORY: J flank pain TECHNIQUE: Multiaxial CT images of the abdomen and pelvis were performed without the use of intravenous and oral contrast according to the standard department stone protocol. COMPARISON STUDY: None. FINDINGS: The lung bases are clear. The unenhanced liver, gallbladder, spleen, pancreas, and adrenal glands are unremarkable. No renal stones or hydronephrosis. No bowel wall thickening or obstruction. The pelvic organs are unremarkable. No suspicious lytic or blastic osseous lesions. IMPRESSION: No renal stones or hydronephrosis. Nonobstructive bowel pattern. Scattered colonic diverticuli with no evidence for diverticulitis. Electronically signed by: Christopher Perla M.D. 04/13/2017 8:51 PM Dictated Date/Time: 04/13/2017 8:45 PM Laboratory Results 04/13/17 20:00 Red Blood Count 4.96, Mean Corpuscular Volume 82.9, Mean Corpuscular Hemoglobin 28.0, Mean Corpuscular Hemoglobin Concent 33.8, Mean Platelet Volume 9.4, Neutrophils (%) (Auto) 38.9, Lymphocytes (%) (Auto) 47.2, Monocytes (%) (Auto) 8.6, Eosinophils (%) (Auto) 4.7, Basophils (%) (Auto) 0.5, Neutrophils # (Auto) 3.02, Lymphocytes # (Auto) 3.68, Monocytes # (Auto) 0.67, Eosinophils # (Auto) 0.37, Basophils # (Auto) 0.04 04/13/17 20:00 Test 04/13/17 20:00 04/13/17 20:06 White Blood Count 7.79 K/uL (4.8-10.8) Red Blood Count 4.96 M/uL (4.2-5.4) Hemoglobin 13.9 g/dL (12.0-16.0) Hematocrit 41.1 % (37-47) Mean Corpuscular Volume 82.9 fL (80-100) Mean Corpuscular Hemoglobin 28.0 pg (25-34) Mean Corpuscular Hemoglobin Concent 33.8 g/dl (32-36) Platelet Count 272 K/uL (130-400) Mean Platelet Volume 9.4 fL (7.4-10.4) Neutrophils (%) (Auto) 38.9 % Lymphocytes (%) (Auto) 47.2 % Monocytes (%) (Auto) 8.6 % Eosinophils (%) (Auto) 4.7 % Basophils (%) (Auto) 0.5 % Neutrophils # (Auto) 3.02 K/uL (1.4-6.5) Lymphocytes # (Auto) 3.68 K/uL (1.2-3.4) Monocytes # (Auto) 0.67 K/uL (0.11-0.59) Eosinophils # (Auto) 0.37 K/uL (0-0.5) Basophils # (Auto) 0.04 K/uL (0-0.2) RDW Standard Deviation 38.8 fL (36.4-46.3) RDW Coefficient of Variation 12.9 % (11.5-14.5) Immature Granulocyte % (Auto) 0.1 % Immature Granulocyte # (Auto) 0.01 K/uL (0.00-0.02) Anion Gap 7.0 mmol/L (3-11) Est Creatinine Clear Calc Drug Dose 131.4 ml/min Estimated GFR () 139.6 Estimated GFR (Non- 120.5 BUN/Creatinine Ratio 20.7 (10-20) Calcium Level 8.9 mg/dl (8.5-10.1) Total Bilirubin 0.3 mg/dl (0.2-1) Direct Bilirubin < 0.1 mg/dl (0-0.2) Aspartate Amino Transf (AST/SGOT) 31 U/L (15-37) Alanine Aminotransferase (ALT/SGPT) 69 U/L (12-78) Alkaline Phosphatase 110 U/L (45-117) Total Protein 8.2 gm/dl (6.4-8.2) Albumin 3.7 gm/dl (3.4-5.0) Lipase 234 U/L (73-393) Urine Color YELLOW Urine Appearance CLEAR (CLEAR) Urine pH 6.0 (4.5-7.5) Urine Specific [place] 1.025 (1.000-1.030) Urine Protein NEG (NEG) Urine Glucose (UA) NEG (NEG) Urine Ketones NEG (NEG) Urine Occult Blood NEG (NEG) Urine Nitrite NEG (NEG) Urine Bilirubin NEG (NEG) Urine Urobilinogen NEG (NEG) Urine Leukocyte Esterase TRACE (NEG) Urine WBC (Auto) 1-5 /hpf (0-5) Urine RBC (Auto) 0-4 /hpf (0-4) Urine Hyaline Casts (Auto) 1-5 /lpf (0-5) Urine Epithelial Cells (Auto) >30 /lpf (0-5) Urine Bacteria (Auto) 1+ (NEG) Urine Test NEG (NEG) Laboratory results as stated above per my review. Medications Administered Medications (Trade) Dose Ordered Sig/Victorina Route Start Time Stop Time Status Last Admin Dose Admin Sodium Chloride 1,000 ml @ 999 mls/hr Q1H1M STAT IV 04/13/17 19:58 04/13/17 20:58 DC 04/13/17 20:18 999 MLS/HR Ondansetron HCl (Zofran Inj) 4 mg NOW STAT IV 04/13/17 19:58 04/13/17 19:59 DC 04/13/17 20:03 4 MG Ketorolac Tromethamine (Toradol Inj) 30 mg NOW STAT IV 04/13/17 19:58 04/13/17 19:59 DC 04/13/17 20:33 30 MG ED Course 1955: Previous medical records were reviewed. The patient was evaluated in room B10. A complete history and physical examination was performed. 1957: Ordered Toradol Inj 30 mg IV, Zofran Inj 4 mg IV, Sodium Chloride 1000 ml @ 999 mls/hr IV 2155: On reevaluation, the patient is resting. I discussed the results and findings with the patient. She verbalized agreement of the treatment plan. She was discharged home. Medical Decision Differentials considered include: pancreatitis, hepatitis, or acute cholecystitis, AAA, UTI, pyelonephritis, kidney stones, appendicitis, diverticulitis, shingles, bowel obstruction mesenteric ischemia, intussusception , hernia, ovarian torsion, ruptured ovarian cyst, ectopic , . Medication Reconciliation: I attest that I have personally reviewed the patient' s current medication list. Blood pressure Screening: Patient was found to have normal blood pressure on screening and does not require follow-up. This is a 26-year-old female who presents to the ED with a chief complaint of abdominal pain. Is mostly on the right side. She states that it started in the epigastric area and it's been in the right lower quadrant for the past 2 hours. She states this started this morning. The patient reports some nausea. She denies any urinary symptoms. Last muscle. Was about 4 weeks ago. The patient has a negative test. Urine appears contaminated but does not appear infection. CT scan of the abdomen pelvis did not show acute disease. CBC and complete metabolic panel are normal. Lipase is normal. The patient was told the results of tests. She was treated with IV fluids, IV Zofran and IV Toradol. She is felt to be stable for discharge. Impression Primary Impression: Right sided abdominal pain Scribe Attestation The scribe's documentation has been prepared under my direction and personally reviewed by me in its entirety. I confirm that the note above accurately reflects all work, treatment, procedures, and medical decision making performed by me. Departure Information Dispostion Home / Self-Care Referrals Ravinder Artis M.D. (PCP) Forms HOME CARE DOCUMENTATION FORM, IMPORTANT VISIT INFORMATION Patient Instructions Abdominal Pain, My [facility] Additional Instructions Follow-up with your doctor for further care and evaluation in 1-2 days. Return to the emergency department for worsening or new symptoms or any concerns. You have been examined and treated today on an emergency basis only. This is not a substitute for, or an effort to provide, complete comprehensive medical care. It is impossible to recognize and treat all injuries or illnesses in a single emergency department visit. It is therefore important that you follow up closely with your doctor. Call as soon as possible for an appointment.
[2017-08-21] MEDS ORDERED: AZITTAB PO (21:58)
== END 2017-04-13 22:10 | disposition home or self-care (01) ==
LOC: C.EDB 19:32
DX: R10.9 Unspecified abdominal pain (principal); Z90.49 Acquired absence of other specified parts of digestive tract; J45.909 Unspecified asthma, uncomplicated; F32.9 Major depressive disorder, single episode, unspecified; F41.1 Generalized anxiety disorder; Z72.0 Tobacco use; Z79.899 Other long term (current) drug therapy

== ENCOUNTER → 2017-04-16 | Outpatient (CLI) | payer OTHER ==
[~2017-04-16] MED LIST changes: +AMOX500C3 PO; -CLX20 PO; +ESCI10TA17 PO; +ONDA8TAB6 PO; +ZFRODT/8 SL
--- NOTE | 2017-04-16 15:25 | DIAGNOSTIC IMAGING REPORT ---
RIGHT WRIST MIN 3 VIEWS ROUTINE, RIGHT HAND MIN 3 VIEWS ROUTINE CLINICAL HISTORY: Right hand and wrist pain. COMPARISON STUDY: Right wrist 12/28/2016. FINDINGS: No fracture or dislocation. Soft tissues are unremarkable. No radiopaque foreign bodies. IMPRESSION: No fracture or dislocation within the right hand or right wrist. Electronically signed by: Alvaro Bedolla M.D. 04/16/2017 3:24 PM Dictated Date/Time: 04/16/2017 3:21 PM
== END | disposition home or self-care (01) ==
LOC: C.RAD 14:59
PROVIDERS: ATTEND Physician Assistant Surgical
DX: S69.91XA Unspecified injury of right wrist, hand and finger(s), initial encounter (principal); M79.641 Pain in right hand; X58.XXXA Exposure to other specified factors, initial encounter; M25.531 Pain in right wrist

== ENCOUNTER 2017-04-24 21:58 | Emergency (ER) | payer OTHER ==
[~2017-04-24] VITALS: Ht 157.5 cm; Wt 89.5 kg
[~2017-04-24 21:58] MED LIST changes: -AMOX500C3 PO; -ZFRODT/8 SL
[2017-04-24 22:01] VITALS: TEMP 36.6; Ht 157.5 cm; Wt 89.5 kg
[2017-04-24] MEDS ORDERED: SODIUM CHLORIDE 0.9% 1000ML 1,000 ML IV ONE (22:21)
[2017-04-24] MEDS ORDERED: SODIUM CHLORIDE 0.9% 1000ML 1,000 ML IV STA (22:21)
[2017-04-24] MEDS ORDERED: KETOROLAC TROMETHAMINE 30 MG/ML VIAL IV STA (22:41)
[2017-04-24 22:42] LABS: BASO % 0.4 %; BASO ABS # 0.03 K/uL (0-0.2); COMPLETE YES; EOS % 4.3 %; HEMATOCRIT 37.5 % (37-47); IG% 0.1 %; LYMPH % 48.1 %; LYMPH ABS # 3.68 K/uL (1.2-3.4); MEAN CELL VOLUME 81.7 fL (80-100); MEAN CORPUSCULAR HEMOGLOBIN 29.4 pg (25-34); MEAN PLATELET VOLUME 8.5 fL (7.4-10.4); MONO % 7.8 %; NEUT % 39.3 %; PLATELET COUNT 251 K/uL (130-400); RED BLOOD COUNT 4.59 M/uL (4.2-5.4); WHITE BLOOD COUNT 7.65 K/uL (4.8-10.8)
[2017-04-24 22:58] LABS: URINE APPEARANCE CLOUDY (CLEAR); URINE BILIRUBIN NEG (NEG); URINE COLOR YELLOW; URINE EPITHELIAL CELL AUTO >30 /lpf (0-5); URINE NITRITE NEG (NEG); URINE SPECIFIC GRAVITY 1.017 (1.000-1.030); UROBILINOGEN NEG (NEG)
[2017-04-24 22:59] LABS: MANUAL MICROSCOPIC REQUIRED? NO; REVIEW REQ? NO
[2017-04-24 23:01] LABS: ALT/SGPT 65 U/L (12-78); AST/SGOT 30 U/L (15-37); BLOOD UREA NITROGEN 10 mg/dl (7-18); BUN/CREATININE RATIO 15.9 (10-20); CALCIUM 9.2 mg/dl (8.5-10.1); CARBON DIOXIDE 27 mmol/L (21-32); CHLORIDE 107 mmol/L (98-107); CREATININE 0.62 mg/dl (0.60-1.20); GLUCOSE 85 mg/dl (70-99); POTASSIUM 3.7 mmol/L (3.5-5.1); SODIUM 141 mmol/L (136-145)
[2017-04-24 23:03] LABS: ALKALINE PHOSPHATASE 101 U/L (45-117)
--- NOTE | 2017-04-24 23:41 | EMERGENCY ROOM VISIT NOTE ---
History Report prepared by Jaylon: Earnestine Wilkins Under the Supervision of: Dr. Luis Enrique Cobos M.D. First contact with patient: 22:13 Chief Complaint: ABDOMINAL PAIN Stated Complaint: ABD PAIN MOVING TO RT SIDE History of Present Illness The patient is a 26 year old female who presents to the Emergency Room with complaints of persistent abdominal pain starting 1 hour ago. She was laying down when the pain started suddenly in her upper abdomen. She describes it as sharp. It has moved into her RLQ. She was here recently for abdominal pain. This pain is different from her previous pain. She was feeling well earlier today. She reports nausea and SOB. She denies any vomiting, chest pain, dysuria , vaginal bleeding, vaginal discharge, pain or swelling in the legs. She has not checked her temperature. She denies any changes to her bowel movements. She denies any fall or trauma. She has no known sick contacts. Her LNMP was 1 month ago. She is due for her period. There is a possibility she is . She still has her appendix. Her gallbladder was taken out 5 years ago. She denies any medical problems. She has not had problems with ovarian cysts before. Source of History: patient, family, spouse/significant other Onset: 1 hour ago Position: abdomen (RLQ) Quality: sharp Timing: other (persistent) Associated Symptoms: + SOB, + nausea, No chest pain, No vomiting, No urinary symptoms Note: Pt denies vaginal bleeding/discharge, pain/swelling to the legs, changes in bowel movement. Review of Systems See HPI for pertinent positives & negatives. A total of 10 systems reviewed and were otherwise negative. Past Medical & Surgical Medical Problems: (1) Anxiety State Nos (2) Asthma, Unspecified (3) Cholecystectomy (4) Depressive Disorder Nec (5) Esophageal Reflux (6) Lumbago (7) Obesity, Nos (8) 25 weeks 3 days (9) Pyelonephritis Nos (10) Tobacco Use Disorder (11) Toxemia of (12) Uterine contractions at greater than 20 weeks of gestation Old medical records were reviewed. Nurse's notes were reviewed and I agree with. Family History Cancer Diabetes mellitus FHx: gallbladder disease Heart disease Hypertension Kidney disease Kidney stones Lung disease Social History Smoking Status: Never Smoker Alcohol Use: none Drug Use: none Marital Status: Housing Status: lives with family Occupation Status: employed Current/Historical Medications Scheduled Escitalopram (Lexapro), 10 MG PO DAILY Scheduled PRN Acetaminophen (Tylenol), 1,000 MG PO Q6H PRN for Pain or Fever Albuterol (Ventolin Hfa), 2 PUFFS INH UD PRN for Shortness of Breath Cyclobenzaprine HCl (Cyclobenzaprine HCl), 5 MG PO HS PRN for Muscle Spasms Ondansetron Hcl (Zofran), 8 MG PO Q8 PRN for Nausea Valacyclovir HCl (Valacyclovir HCl), 500 MG PO DAILY PRN for FLARES Allergies Coded Allergies: [place] Fl[place] (Verified Allergy, Severe, THROAT SWELLS, 04/24/17) Bee Venom (Verified Allergy, Intermediate, Swelling, 04/24/17) [place] (Verified Allergy, Intermediate, Swelling of throat and nausea , 04/24/17) Physical Exam Vital Signs Date Time Temp Pulse Resp B/P (MAP) Pulse Ox O2 Delivery O2 Flow Rate FiO2 04/24/17 22:01 36.6 100 18 116/83 97 Room Air Physical Exam General: Non ill appearing young female. Well developed well nourished in no acute distress, breathing comfortably on room air. Normal speech HEENT: Normal cephalic atraumatic. Pupils are equal round and reactive to light. Sclerae anicteric. Extraocular movements are intact. Oropharynx is pink with moist mucous membranes. No swelling of the mouth lips or tongue. Neck: Supple with a midline trachea. No meningeal signs or stiffness, no JVD or bruits. No Stridor. Chest: Clear to auscultation bilaterally. No wheezes or rhonchi. No increased work of breathing. Heart: regular rate and rhythm. Abdomen: Soft, mildly tender in the right lower abdomen, nondistended without rebound guarding or rigidity. Extremities: No cyanosis clubbing or edema. No calf tenderness or assymetry Spine/Back. Non tender to palpation. No CVA tenderness Skin: Good turgor without rashes. Neurologic exam: Cranial nerves two through 12 are intact. Motor and sensation are intact and symmetrical throughout. Medical Decision & Procedures ER Provider Diagnostic Interpretation: Radiology results as stated below per my review and radiologist interpretation: ULTRASOUND OF THE PELVIS CLINICAL HISTORY: Right pelvic pain. COMPARISON STUDY: Pelvic CT dated 04/13/2017. TECHNIQUE: Real-time, grayscale, and color flow sonography of the pelvis is performed transabdominally. Images are reviewed in the transverse and longitudinal planes. FINDINGS: Uterus: The uterus is normal in size and echotexture, measuring 8.0 x 4.0 x 5.7 cm. Endometrium: The endometrium is normal in appearance, and the endometrial stripe is thickened measuring up to 1.7 cm. Ovaries: The ovaries are normal in size and morphology. The right ovary measures 2.8 x 2.0 x 2.5 cm and the left ovary measures 3.9 x 1.6 x 2.1 cm. Small ovarian follicles are noted. Normal Doppler waveforms are shown within both ovaries. Pelvis: There is no free fluid in the cul-de-sac. No concerning adnexal lesion is seen. IMPRESSION: 1. No acute sonographic abnormality is identified in the pelvis on this transabdominal examination. 2. The ovaries are normal in appearance. 3. The endometrial stripe appears thickened measuring up to 1.7 cm. This is likely related to the phase of the patient's cycle. Clinical correlation will be required. Electronically signed by: Alex Feng M.D. 04/24/2017 11:50 PM Dictated Date/Time: 04/24/2017 11:48 PM Laboratory Results 04/24/17 22:30 Red Blood Count 4.59, Mean Corpuscular Volume 81.7, Mean Corpuscular Hemoglobin 29.4, Mean Corpuscular Hemoglobin Concent 36.0, Mean Platelet Volume 8.5, Neutrophils (%) (Auto) 39.3, Lymphocytes (%) (Auto) 48.1, Monocytes (%) (Auto) 7.8, Eosinophils (%) (Auto) 4.3, Basophils (%) (Auto) 0.4, Neutrophils # (Auto) 3.00, Lymphocytes # (Auto) 3.68, Monocytes # (Auto) 0.60, Eosinophils # (Auto) 0.33, Basophils # (Auto) 0.03 04/24/17 22:30 Test 04/24/17 22:30 White Blood Count 7.65 K/uL (4.8-10.8) Red Blood Count 4.59 M/uL (4.2-5.4) Hemoglobin 13.5 g/dL (12.0-16.0) Hematocrit 37.5 % (37-47) Mean Corpuscular Volume 81.7 fL (80-100) Mean Corpuscular Hemoglobin 29.4 pg (25-34) Mean Corpuscular Hemoglobin Concent 36.0 g/dl (32-36) Platelet Count 251 K/uL (130-400) Mean Platelet Volume 8.5 fL (7.4-10.4) Neutrophils (%) (Auto) 39.3 % Lymphocytes (%) (Auto) 48.1 % Monocytes (%) (Auto) 7.8 % Eosinophils (%) (Auto) 4.3 % Basophils (%) (Auto) 0.4 % Neutrophils # (Auto) 3.00 K/uL (1.4-6.5) Lymphocytes # (Auto) 3.68 K/uL (1.2-3.4) Monocytes # (Auto) 0.60 K/uL (0.11-0.59) Eosinophils # (Auto) 0.33 K/uL (0-0.5) Basophils # (Auto) 0.03 K/uL (0-0.2) RDW Standard Deviation 37.9 fL (36.4-46.3) RDW Coefficient of Variation 12.8 % (11.5-14.5) Immature Granulocyte % (Auto) 0.1 % Immature Granulocyte # (Auto) 0.01 K/uL (0.00-0.02) Urine Color YELLOW Urine Appearance CLOUDY (CLEAR) Urine pH 7.0 (4.5-7.5) Urine Specific [place] 1.017 (1.000-1.030) Urine Protein NEG (NEG) Urine Glucose (UA) NEG (NEG) Urine Ketones NEG (NEG) Urine Occult Blood NEG (NEG) Urine Nitrite NEG (NEG) Urine Bilirubin NEG (NEG) Urine Urobilinogen NEG (NEG) Urine Leukocyte Esterase MODERATE (NEG) Urine WBC (Auto) 5-10 /hpf (0-5) Urine RBC (Auto) 0-4 /hpf (0-4) Urine Hyaline Casts (Auto) 1-5 /lpf (0-5) Urine Epithelial Cells (Auto) >30 /lpf (0-5) Urine Bacteria (Auto) 1+ (NEG) Urine Test NEG (NEG) Anion Gap 7.0 mmol/L (3-11) Est Creatinine Clear Calc Drug Dose 141.8 ml/min Estimated GFR () 143.2 Estimated GFR (Non- 123.6 BUN/Creatinine Ratio 15.9 (10-20) Calcium Level 9.2 mg/dl (8.5-10.1) Total Bilirubin 0.4 mg/dl (0.2-1) Direct Bilirubin < 0.1 mg/dl (0-0.2) Aspartate Amino Transf (AST/SGOT) 30 U/L (15-37) Alanine Aminotransferase (ALT/SGPT) 65 U/L (12-78) Alkaline Phosphatase 101 U/L (45-117) Total Protein 7.8 gm/dl (6.4-8.2) Albumin 3.6 gm/dl (3.4-5.0) Lipase 244 U/L (73-393) Laboratory studies as stated above per my review. Medications Administered Medications (Trade) Dose Ordered Sig/Victorina Route Start Time Stop Time Status Last Admin Dose Admin Sodium Chloride 1,000 ml @ 999 mls/hr Q1H1M STAT IV 04/24/17 22:21 04/24/17 23:21 DC 04/24/17 22:33 999 MLS/HR Sodium Chloride 1,000 ml @ 150 mls/hr Q6H40M ONCE IV 04/24/17 22:21 04/25/17 05:00 04/24/17 22:33 150 MLS/HR Ketorolac Tromethamine (Toradol Inj) 30 mg NOW STAT IV 04/24/17 22:41 04/24/17 22:42 DC 04/25/17 00:09 30 MG ED Course 2214: Past medical records reviewed. The patient was evaluated in room A11B, and a complete history and physical examination were performed. 2221: NSS 1000 ml @ 150 mls/hr IV, NSS 1000 ml @ 999 mls/hr IV. 2241: Toradol Inj 30 mg IV. 2320: I went to reevaluate the patient. She was at ultrasound. 0001: I reevaluated the patient. She is resting comfortably. She has not yet received her Toradol. 0020: Upon reevaluation, the patient is resting comfortably. I discussed the results and treatment plan with her. She verbalized agreement of the treatment plan. The patient was discharged home. Medical Decision Differentials include, but are not limited to; , ectopic , kidney stone, appendicitis, infection, electrolyte or metabolic abnormality. This patient comes in after having sudden onset of abdominal pains most in the right sided happened abruptly about an hour ago. She was seen here last month for abdominal pain and had a CAT scan which did not show any kidney stones, she has diverticulosis without diverticulitis. Her abdomen exams are mildly tender. She's had no peritonitis. Multiple blood tests was obtained as well as urinalysis and culture. Her urine test was negative and urinalysis does not suggest UTI. IV access was established hydrated with an IV normal saline bolus and then hourly rate of IV normal saline. She was given Toradol 30 mg IV. She's had no white count or fever to suggest infection. She' s had no acute electrolyte or metabolic abnormalities. She did have an ultrasound as well. Ultrasound was unremarkable. I do not think this is appendicitis. It came on very acutely and he has no fever or white count of peritonitis. I do not think we need to do another CAT scan at this point as she 's had 2 done in the last year and I want to minimize radiation to 26-year-old. She and her significant other acknowledge this and agree. I encouraged however to return if she has fever or chills, increasing pain, worsening symptoms, any new problems or concerns and use ibuprofen for pain. She is happy with plan and discharged to home. Medication Reconciliation: I attest that I have personally reviewed the patient' s current medication list. Blood pressure Screening: Patient was found to have normal blood pressure on screening and does not require follow-up. Impression Primary Impression: Right sided abdominal pain Scribe Attestation The scribe's documentation has been prepared under my direction and personally reviewed by me in its entirety. I confirm that the note above accurately reflects all work, treatment, procedures, and medical decision making performed by me. Departure Information Dispostion Home / Self-Care Referrals Ravinder Artis M.D. (PCP) Forms HOME CARE DOCUMENTATION FORM, IMPORTANT VISIT INFORMATION Patient Instructions My [facility] Additional Instructions Rest. Drink plenty of fluids. For pain, may use ibuprofen 400 mg every 6 hours, take with food Return if: Increasing pain, worsening of symptoms, fever or chills, any new problems or concerns. Follow-up with your doctor Wednesday or Wednesday for recheck and return to the ER over the weekend if symptoms worsen.
--- NOTE | 2017-04-24 23:52 | DIAGNOSTIC IMAGING REPORT ---
ULTRASOUND OF THE PELVIS CLINICAL HISTORY: Right pelvic pain. COMPARISON STUDY: Pelvic CT dated 04/13/2017. TECHNIQUE: Real-time, grayscale, and color flow sonography of the pelvis is performed transabdominally. Images are reviewed in the transverse and longitudinal planes. FINDINGS: Uterus: The uterus is normal in size and echotexture, measuring 8.0 x 4.0 x 5.7 cm. Endometrium: The endometrium is normal in appearance, and the endometrial stripe is thickened measuring up to 1.7 cm. Ovaries: The ovaries are normal in size and morphology. The right ovary measures 2.8 x 2.0 x 2.5 cm and the left ovary measures 3.9 x 1.6 x 2.1 cm. Small ovarian follicles are noted. Normal Doppler waveforms are shown within both ovaries. Pelvis: There is no free fluid in the cul-de-sac. No concerning adnexal lesion is seen. IMPRESSION: 1. No acute sonographic abnormality is identified in the pelvis on this transabdominal examination. 2. The ovaries are normal in appearance. 3. The endometrial stripe appears thickened measuring up to 1.7 cm. This is likely related to the phase of the patient's cycle. Clinical correlation will be required. Electronically signed by: Alex Feng M.D. 04/24/2017 11:50 PM Dictated Date/Time: 04/24/2017 11:48 PM
[2017-04-25 00:32] VITALS: BP 104/64
[2017-04-25 00:33] VITALS: PULSE 91; O2SAT 99
== END 2017-04-25 00:35 | disposition home or self-care (01) ==
LOC: C.EDB 21:58 → C.EDA 04-25 00:35
DX: R10.31 Right lower quadrant pain (principal); F41.9 Anxiety disorder, unspecified; J45.909 Unspecified asthma, uncomplicated; Z90.49 Acquired absence of other specified parts of digestive tract; K21.9 Gastro-esophageal reflux disease without esophagitis; E66.9 Obesity, unspecified; Z68.36 Body mass index [BMI] 36.0-36.9, adult; Z80.9 Family history of malignant neoplasm, unspecified; Z83.3 Family history of diabetes mellitus; Z82.49 Family history of ischemic heart disease and other diseases of the circulatory system; Z84.1 Family history of disorders of kidney and ureter; Z79.899 Other long term (current) drug therapy

== ENCOUNTER 2017-05-03 21:14 | Emergency (ER) | payer OTHER ==
[~2017-05-03] VITALS: Ht 154.9 cm; Wt 92.5 kg
[2017-05-03 21:29] VITALS: TEMP 37.2; Ht 154.9 cm; Wt 92.5 kg
[2017-05-03] MEDS ORDERED: SODIUM CHLORIDE 0.9% 1000ML 1,000 ML IV STA (21:42)
[2017-05-03] MEDS ORDERED: DiphenhydrAMINE HCL 50 MG/ML VIAL IV STA (21:42)
[2017-05-03] MEDS ORDERED: METOCLOPRAMIDE HCL INJ 5 MG/ML 2 ML VIAL IV STA (21:42)
[2017-05-03] MEDS ORDERED: DICYCLOMINE HCL 10 MG/ML 2 ML AMP IM ONE (21:45)
[2017-05-03 22:06] VITALS: O2SAT 98
[2017-05-03 22:48] LABS: MANUAL MICROSCOPIC REQUIRED? NO; REVIEW REQ? NO; URINE APPEARANCE CLEAR (CLEAR); URINE BILIRUBIN NEG (NEG); URINE COLOR YELLOW; URINE NITRITE NEG (NEG); URINE SPECIFIC GRAVITY 1.008 (1.000-1.030); UROBILINOGEN NEG (NEG); ZZUR CULT IF INDIC CLEAN CATCH NO
[2017-05-03 22:49] LABS: BASO % 0.7 %; BASO ABS # 0.05 K/uL (0-0.2); COMPLETE YES; EOS % 3.8 %; HEMATOCRIT 38.6 % (37-47); IG% 0.1 %; LYMPH % 44.9 %; LYMPH ABS # 3.33 K/uL (1.2-3.4); MEAN CELL VOLUME 83.4 fL (80-100); MEAN CORPUSCULAR HEMOGLOBIN 27.9 pg (25-34); MEAN CORPUSCULAR HGB CONC 33.4 g/dl (32-36); MONO % 10.5 %; PLATELET COUNT 249 K/uL (130-400); RED BLOOD COUNT 4.63 M/uL (4.2-5.4); WHITE BLOOD COUNT 7.41 K/uL (4.8-10.8)
[2017-05-03 23:05] LABS: PREG INTERNAL NEGATIVE QC NEG CLEAR BACKGROUND; PREG INTERNAL POSITIVE QC POS CONTROL LINE
[2017-05-03 23:19] LABS: ALT/SGPT 69 U/L (12-78); AST/SGOT 36 U/L (15-37); BLOOD UREA NITROGEN 10 mg/dl (7-18); BUN/CREATININE RATIO 15.2 (10-20); CALCIUM 8.9 mg/dl (8.5-10.1); CARBON DIOXIDE 26 mmol/L (21-32); CHLORIDE 109 mmol/L (98-107); CREATININE 0.67 mg/dl (0.60-1.20); GLUCOSE 80 mg/dl (70-99); POTASSIUM 3.7 mmol/L (3.5-5.1); SODIUM 143 mmol/L (136-145)
[2017-05-03 23:22] LABS: ALKALINE PHOSPHATASE 82 U/L (45-117)
--- NOTE | 2017-05-04 02:08 | EMERGENCY ROOM VISIT NOTE ---
History First contact with patient: 21:39 Chief Complaint: FLANK PAIN Stated Complaint: RIGHT SIDED PAIN,NAUSEA History of Present Illness The patient is a 26 year old female who presents to the Emergency Room with complaints of ongoing right upper lateral abdominal pain for the past month described as cramping, ranging in severity 6 out of 10. Patient had a CT and ultrasound that were negative. Status post cholecystectomy. Patient complains of nausea without vomiting or diarrhea. Patient denies chest pain, dyspnea, back pain, urinary symptoms, vaginal itching or discharge, fever or chills. No injury to the area. Patient denies chance of . Last test here was negative. Review of Systems See HPI for pertinent positives & negatives. A total of 10 systems reviewed and were otherwise negative. Past Medical/Surgical History Medical Problems: (1) Anxiety State Nos (2) Asthma, Unspecified (3) Cholecystectomy (4) Depressive Disorder Nec (5) Esophageal Reflux (6) Lumbago (7) Obesity, Nos (8) 25 weeks 3 days (9) Pyelonephritis Nos (10) Tobacco Use Disorder (11) Toxemia of (12) Uterine contractions at greater than 20 weeks of gestation Family History Cancer Diabetes mellitus FHx: gallbladder disease Heart disease Hypertension Kidney disease Kidney stones Lung disease Social History Smoking Status: Never Smoker Alcohol Use: none Drug Use: none Marital Status: Housing Status: lives with family Occupation Status: employed Current/Historical Medications Scheduled Escitalopram (Lexapro), 10 MG PO DAILY Scheduled PRN Acetaminophen (Tylenol), 1,000 MG PO Q6H PRN for Pain or Fever Albuterol (Ventolin Hfa), 2 PUFFS INH UD PRN for Shortness of Breath Cyclobenzaprine HCl (Cyclobenzaprine HCl), 5 MG PO HS PRN for Muscle Spasms Ondansetron Hcl (Zofran), 8 MG PO Q8 PRN for Nausea Valacyclovir HCl (Valacyclovir HCl), 500 MG PO DAILY PRN for FLARES Allergies Coded Allergies: [place] Flavor (Verified Allergy, Severe, THROAT SWELLS, 04/24/17) Bee Venom (Verified Allergy, Intermediate, Swelling, 04/24/17) [place] (Verified Allergy, Intermediate, Swelling of throat and nausea , 04/24/17) Physical Exam Vital Signs Date Time Temp Pulse Resp B/P (MAP) Pulse Ox O2 Delivery O2 Flow Rate FiO2 05/04/17 01:09 100 20 113/80 98 Room Air 05/03/17 23:28 96 20 124/87 98 Room Air 05/03/17 23:23 96 05/03/17 22:06 98 Room Air 05/03/17 21:29 37.2 112 18 130/87 98 Room Air Physical Exam VITALS: Vitals are noted on the nurse's note and reviewed by myself. Vital signs stable. GENERAL: Pleasant female, in no acute distress, nondiaphoretic, well-developed well-nourished. SKIN: The skin was without rashes, erythema, edema, or bruising. There is no tenting of the skin. Capillary reflex less than 2 seconds. HEAD: Normocephalic atraumatic. EARS: External auditory canals clear, tympanic membranes pearly [place] without erythema or effusion bilaterally. EYES: Pupils equal round and reactive to light and accommodation. Conjunctivae without injection, sclerae without icterus. Extraocular movements intact. NOSE: Patent, turbinates without inflammation or discharge. MOUTH: Mucous membranes moist. Pharynx without erythema or exudate. Uvula midline. Airway patent. Tongue does not deviate. NECK: Supple without nuchal rigidity. No lymphadenopathy. No thyromegaly. Cervical spine is nontender. No JVD. HEART: Regular rate and rhythm without murmurs gallops or rubs. LUNGS: Clear to auscultation bilaterally without wheezes, rales or rhonchi. No dullness to percussion. No retractions or accessory muscle use. ABDOMEN: Positive bowel sounds x 4. Normal tympanic percussion. Soft, protuberant, obese, tender to palpation right lateral abdomen, without masses or organomegaly. Pat sign negative. No guarding or rebound tenderness. No CVA tenderness MUSCULOSKELETAL: No muscle atrophy, erythema, or edema noted. NEURO: Patient was alert and oriented to person place and time. Normal sensation to light and sharp touch. No focal neurological deficits. Medical Decision & Procedures Laboratory Results 05/03/17 22:30 Red Blood Count 4.63, Mean Corpuscular Volume 83.4, Mean Corpuscular Hemoglobin 27.9, Mean Corpuscular Hemoglobin Concent 33.4, Mean Platelet Volume 9.0, Neutrophils (%) (Auto) 40.0, Lymphocytes (%) (Auto) 44.9, Monocytes (%) (Auto) 10.5, Eosinophils (%) (Auto) 3.8, Basophils (%) (Auto) 0.7, Neutrophils # (Auto ) 2.96, Lymphocytes # (Auto) 3.33, Monocytes # (Auto) 0.78, Eosinophils # (Auto ) 0.28, Basophils # (Auto) 0.05 05/03/17 22:30 Test 05/03/17 22:30 White Blood Count 7.41 K/uL (4.8-10.8) Red Blood Count 4.63 M/uL (4.2-5.4) Hemoglobin 12.9 g/dL (12.0-16.0) Hematocrit 38.6 % (37-47) Mean Corpuscular Volume 83.4 fL (80-100) Mean Corpuscular Hemoglobin 27.9 pg (25-34) Mean Corpuscular Hemoglobin Concent 33.4 g/dl (32-36) Platelet Count 249 K/uL (130-400) Mean Platelet Volume 9.0 fL (7.4-10.4) Neutrophils (%) (Auto) 40.0 % Lymphocytes (%) (Auto) 44.9 % Monocytes (%) (Auto) 10.5 % Eosinophils (%) (Auto) 3.8 % Basophils (%) (Auto) 0.7 % Neutrophils # (Auto) 2.96 K/uL (1.4-6.5) Lymphocytes # (Auto) 3.33 K/uL (1.2-3.4) Monocytes # (Auto) 0.78 K/uL (0.11-0.59) Eosinophils # (Auto) 0.28 K/uL (0-0.5) Basophils # (Auto) 0.05 K/uL (0-0.2) RDW Standard Deviation 38.9 fL (36.4-46.3) RDW Coefficient of Variation 12.8 % (11.5-14.5) Immature Granulocyte % (Auto) 0.1 % Immature Granulocyte # (Auto) 0.01 K/uL (0.00-0.02) Urine Color YELLOW Urine Appearance CLEAR (CLEAR) Urine pH 6.0 (4.5-7.5) Urine Specific [place] 1.008 (1.000-1.030) Urine Protein NEG (NEG) Urine Glucose (UA) NEG (NEG) Urine Ketones NEG (NEG) Urine Occult Blood NEG (NEG) Urine Nitrite NEG (NEG) Urine Bilirubin NEG (NEG) Urine Urobilinogen NEG (NEG) Urine Leukocyte Esterase NEG (NEG) Anion Gap 8.0 mmol/L (3-11) Est Creatinine Clear Calc Drug Dose 130.7 ml/min Estimated GFR () 139.6 Estimated GFR (Non- 120.5 BUN/Creatinine Ratio 15.2 (10-20) Calcium Level 8.9 mg/dl (8.5-10.1) Total Bilirubin 0.3 mg/dl (0.2-1) Direct Bilirubin < 0.1 mg/dl (0-0.2) Aspartate Amino Transf (AST/SGOT) 36 U/L (15-37) Alanine Aminotransferase (ALT/SGPT) 69 U/L (12-78) Alkaline Phosphatase 82 U/L (45-117) Total Protein 7.7 gm/dl (6.4-8.2) Albumin 3.6 gm/dl (3.4-5.0) Lipase 222 U/L (73-393) Human Chorionic Gonadotropin, Qual POS (NEG) Human Chorionic Gonadotropin, Quant 1042 mIU/mL Medications Administered Medications (Trade) Dose Ordered Sig/Victorina Route Start Time Stop Time Status Last Admin Dose Admin Dicyclomine HCl (Bentyl Inj) 20 mg NOW ONCE IM 05/03/17 21:45 05/03/17 21:46 DC 05/03/17 22:30 20 MG Metoclopramide HCl (Reglan Inj) 10 mg NOW STAT IV 05/03/17 21:42 05/03/17 21:44 DC 05/03/17 22:30 10 MG Diphenhydramine HCl (Benadryl Inj) 25 mg NOW STAT IV 05/03/17 21:42 05/03/17 21:44 DC 05/03/17 22:30 25 MG Sodium Chloride 1,000 ml @ 999 mls/hr Q1H1M STAT IV 05/03/17 21:42 05/03/17 22:42 DC 05/03/17 22:30 999 MLS/HR ED Course Prior records/ancillary studies reviewed. Triage Nursing notes reviewed. Additional history obtained from family. The patient's history was concerning for abdominal pain. Differential diagnosis: Etiologies such as IBS, appendicitis, diverticulitis, PUD, biliary pathology, UTI, pancreatitis, obstruction, mesenteric ischemia, aortic pathology, infections, inflammatory bowel disease, renal colic, as well as others were entertained. Physical examination findings: As above. ER treatment provided: Bentyl, Reglan, Benadryl, normal saline On reassessment the patient felt better. Diagnostics interpreted by me: The labs revealed no worrisome leukocytosis or left slight abnormality. Positive hCG. Quant 1000 Imaging studies: CT and ultrasound was reviewed from the other day and negative Ultrasound was ordered as patient had a positive hCG. Patient's been having ongoing abdominal pain for greater than a month. I do not believe this is related to this. US OB 1st TRIMESTER: Indication: Right flank pain. HCG 1042 mIU/mL Comparison: Ultrasound of 04/24/2017. Technique: Transabdominal and endovaginal ultrasound of the pelvis performed. Sagittal and transverse grayscale, color and pulse wave Doppler imaging obtained. FINDINGS: The uterus measures 8.2 x 4.6 x 5.8 cm. There is a 3 mm diameter anechoic structure adjacent to the endometrial stripe may represent an early gestational sac, but is out of range for sonographic evaluation by dates. No pole or yolk sac is seen. The right ovary measures 2.9 x 2.1 x 1.8 cm. There is a 1.6 cm hypoechoic area within the ovary with peripheral Doppler blood flow most likely represents a corpus luteum. No torsion or mass. The left ovary measures 2.6 x 1.4 x 1.2 cm. No torsion or mass. Normal color and pulse wave Doppler blood flow demonstrated to each ovary. Trace free fluid in the pelvic cul-de-sac. IMPRESSION: Presumed early gestational sac within the endometrium, which is too small for measurement of dates. Recommend close clinical follow-up, serial beta-hCG and/or ultrasound, as clinically indicated. Radiologist: Jan Seaman MD Exam and history seem consistent with abdominal pain as an ongoing for a month that can be related to the IBS who also has a positive test which occurred after her pain started. Patient's been having pain for more than a month now. No new changes. No injury. Status post cholecystectomy a few years ago. She is advised to follow-up with [facility] for further workup for her and abdominal pain for rule out ectopic or here in the ER sooner for abdominal pain, vaginal bleeding, fevers, vomiting, worsening signs or symptoms or as needed. Patient did not have an acute abdomen on exam. She is well-appearing. She is tolerating by mouth fluids and food.By the evaluation outlined above emergent etiologies such as appendicitis, diverticulitis, PUD, biliary pathology, UTI, pancreatitis, obstruction, mesenteric ischemia, aortic pathology, infections, inflammatory bowel disease, renal colic, as well as others were deemed relatively unlikely. I do not believe the patient has ectopic . She does not have acute abdomen on exam. She is well-appearing. She is eating and drinking without difficulties. Pain has been ongoing for greater than a month. The pt informed about the findings as listed above. All questions were answered and pleased with the treatment. Return instructions were outlined and the patient was discharged in stable condition. Outpatient prescription management: Jerel Referral: The patient was referred back to their [facility] for follow-up in 2 to 3 days for a recheck of the current condition. Case reviewed with my attending. Medical Decision as above Impression Primary Impression: Additional Impression: Right sided abdominal pain Departure Information Dispostion Home / Self-Care Condition GOOD Referrals Ravinder Artis M.D. (PCP) Patient Instructions My [facility] Additional Instructions DO NOT drive, drink alcohol, operate machinery, or perform dangerous activities today. You were given medications in the ER that can affect your ability to safely function or operate a vehicle. You are currently . Do not take any medications until cleared by the pharmacist or your [facility] doctor. Recommend that you start taking a . This is [id number]. Acetaminophen(Tylenol) may be used for fever or pain. Use 1000mg every six hours as needed. Avoid using more than 3000mg in a 24 hour period. Zofran 4mg: Take one every six hours as needed for nausea. Avoid alcohol, operating machinery or dangerous equipment, working on ladders or roofs, DRIVING , or situations where being under the influence may be dangerous. Rest and drink plenty of fluids as tolerated. Slow sips of water or sports drinks are recommended instead of large amounts all at once. Continue current medications. Once your stomach is settled start with a clear liquid diet (jello, soup broth, etc.) and then advance as tolerated. You should avoid full, heavy meals for about 24 hrs from the time your symptoms resolved. Return to the ER immediately for worsening or persistent abdominal pain, vaginal bleeding, vomiting, fevers, chest pains, difficulty breathing, black or bloody stools, worsening of your condition, or as needed. Follow up with your [facility] in 2-3 days for a recheck of your current condition and for further workup for rule out ectopic . Problem Qualifiers Primary Impression: Weeks of gestation: less than 8 weeks Qualified Codes: Z3A.01 - Less than 8 weeks gestation of
[2017-05-04 02:21] VITALS: BP 120/76; PULSE 102; O2SAT 96
--- NOTE | 2017-05-04 06:54 | DIAGNOSTIC IMAGING REPORT ---
<14 WKS SINGLE CLINICAL HISTORY: abd pain, + hcg pain TECHNIQUE: Ultrasound COMPARISON STUDY: 04/24/2017 FINDINGS: Possible 3 mm early intrauterine gestational sac. Endometrial thickening at 1.5 cm sac is too small to confirm or exclude viability. The ovaries show normal vascular flow. As 1.6 cm right ovarian corpus luteum cyst. IMPRESSION: 1. 3 mm intrauterine gestational sac, too small to confirm viability. 2. Follow-up in 7-10 days recommended to exclude or confirm viability. 3. Small right ovarian corpus luteum cyst. The above report was generated using voice recognition software. It may contain grammatical, syntax or spelling errors. Electronically signed by: Christopher Perla M.D. 05/04/2017 6:52 AM Dictated Date/Time: 05/04/2017 6:49 AM
== END 2017-05-04 02:23 | disposition home or self-care (01) ==
LOC: C.EDB 21:15
DX: O26.891 Other specified pregnancy related conditions, first trimester (principal); R10.11 Right upper quadrant pain; Z3A.00 Weeks of gestation of pregnancy not specified; O99.341 Other mental disorders complicating pregnancy, first trimester; F41.9 Anxiety disorder, unspecified; O99.511 Diseases of the respiratory system complicating pregnancy, first trimester; J45.909 Unspecified asthma, uncomplicated; F32.9 Major depressive disorder, single episode, unspecified; O99.611 Diseases of the digestive system complicating pregnancy, first trimester; K21.9 Gastro-esophageal reflux disease without esophagitis; M54.5 Low back pain; Z80.9 Family history of malignant neoplasm, unspecified; Z83.3 Family history of diabetes mellitus; Z83.79 Family history of other diseases of the digestive system; Z82.49 Family history of ischemic heart disease and other diseases of the circulatory system; Z84.1 Family history of disorders of kidney and ureter; Z83.6 Family history of other diseases of the respiratory system; Z79.899 Other long term (current) drug therapy

== ENCOUNTER 2017-05-12 22:56 | Emergency (ER) | payer OTHER ==
[~2017-05-12] VITALS: Ht 154.9 cm; Wt 92.0 kg
[2017-05-12 23:02] VITALS: TEMP 36.6; Ht 154.9 cm; Wt 92.0 kg
[2017-05-12] MEDS ORDERED: SODIUM CHLORIDE 0.9% 1000ML 1,000 ML IV STA (23:17)
[2017-05-12] MEDS ORDERED: ONDANSETRON INJ 2 MG/ML 2 ML VIAL IV STA (23:17)
--- NOTE | 2017-05-12 23:26 | EMERGENCY ROOM VISIT NOTE ---
History Report prepared by Jaylon: Deyvi Rodriguez Under the Supervision of: Dr. Alphonse Sheffield D.O. First contact with patient: 23:13 Chief Complaint: ABDOMINAL PAIN Stated Complaint: side pain both, dizzy, nausea History of Present Illness The patient is a 27 year old female who presents to the Emergency Room with complaints of constant sharp right abdominal pain for the past few months. She additionally states that she is dizzy, nauseous, and she has lost consciousness a few times. The patient additionally notes that she is , and she is going to see a doctor on the . The patient denies any vaginal bleeding, vaginal discharge, and any hematuria. The patient states that she has a history of a cholecystectomy, carpal tunnel, and a wisdom tooth extraction. She states that this is her third time , though she has never had pain like this. She denies using any tobacco or alcohol. Source of History: patient Onset: past few months Position: abdomen Quality: sharp Timing: constant Associated Symptoms: + LOC, + nausea, No urinary symptoms Review of Systems See HPI for pertinent positives & negatives. A total of 10 systems reviewed and were otherwise negative. Past Medical & Surgical Medical Problems: (1) Anxiety State Nos (2) Asthma, Unspecified (3) Cholecystectomy (4) Depressive Disorder Nec (5) Esophageal Reflux (6) Lumbago (7) Obesity, Nos (8) 25 weeks 3 days (9) Pyelonephritis Nos (10) Tobacco Use Disorder (11) Toxemia of (12) Uterine contractions at greater than 20 weeks of gestation Family History Cancer Diabetes mellitus FHx: gallbladder disease Heart disease Hypertension Kidney disease Kidney stones Lung disease Social History Smoking Status: Never Smoker Alcohol Use: none Drug Use: none Marital Status: Housing Status: lives with family Occupation Status: employed Current/Historical Medications Scheduled Escitalopram (Lexapro), 10 MG PO DAILY Scheduled PRN Acetaminophen (Tylenol), 1,000 MG PO Q6H PRN for Pain or Fever Ondansetron Hcl (Zofran), 8 MG PO Q8 PRN for Nausea Allergies Coded Allergies: [place] Flavor (Verified Allergy, Severe, THROAT SWELLS, 05/12/17) Bee Venom (Verified Allergy, Intermediate, Swelling, 05/12/17) [place] (Verified Allergy, Intermediate, Swelling of throat and nausea , 7/26/17) Physical Exam Vital Signs Date Time Temp Pulse Resp B/P (MAP) Pulse Ox O2 Delivery O2 Flow Rate FiO2 05/13/17 01:01 71 18 104/75 98 05/12/17 23:02 36.6 82 18 119/77 97 Room Air Physical Exam GENERAL: Patient is awake, alert, and in no acute distress. Patient is resting comfortably and showing no signs of anxiety EYES: The conjunctivae are clear. The pupils are round and reactive. EARS, NOSE, MOUTH AND THROAT: The nose is without any evidence of any deformity. Mucous membranes are moist tongue is midline NECK: The neck is nontender and supple. RESPIRATORY: Normal respiratory effort is noted there is no evidence of wheezing rhonchi or rales CARDIOVASCULAR: Regular rate and rhythm noted there no murmurs rubs or gallops normal S1 normal S2 GASTROINTESTINAL: The abdomen is soft. Bowel sounds are present in all quadrants. Abdomen is nontender MUSCULOSKELETAL/EXTREMITIES: There is no evidence of gross deformity full range of motion is noted in the hips and shoulders SKIN: There is no obvious evidence of any rash. There are no petechiae, pallor or cyanosis noted. NEUROLOGIC: Patient is awake alert and oriented x3 strength is symmetric patellar reflexes are 2+ bilaterally Medical Decision & Procedures Laboratory Results 05/12/17 23:35 Red Blood Count 4.41, Mean Corpuscular Volume 84.1, Mean Corpuscular Hemoglobin 28.3, Mean Corpuscular Hemoglobin Concent 33.7, Mean Platelet Volume 9.3, Neutrophils (%) (Auto) 51.5, Lymphocytes (%) (Auto) 37.2, Monocytes (%) (Auto) 8.5, Eosinophils (%) (Auto) 2.4, Basophils (%) (Auto) 0.3, Neutrophils # (Auto) 4.83, Lymphocytes # (Auto) 3.50, Monocytes # (Auto) 0.80, Eosinophils # (Auto) 0.23, Basophils # (Auto) 0.03 05/12/17 23:35 Test 05/12/17 23:15 05/12/17 23:35 Urine Color YELLOW Urine Appearance CLEAR (CLEAR) Urine pH 6.0 (4.5-7.5) Urine Specific [place] 1.023 (1.000-1.030) Urine Protein NEG (NEG) Urine Glucose (UA) NEG (NEG) Urine Ketones NEG (NEG) Urine Occult Blood NEG (NEG) Urine Nitrite NEG (NEG) Urine Bilirubin NEG (NEG) Urine Urobilinogen NEG (NEG) Urine Leukocyte Esterase SMALL (NEG) Urine WBC (Auto) 5-10 /hpf (0-5) Urine RBC (Auto) 0-4 /hpf (0-4) Urine Hyaline Casts (Auto) 0 /lpf (0-5) Urine Epithelial Cells (Auto) >30 /lpf (0-5) Urine Bacteria (Auto) 1+ (NEG) White Blood Count 9.40 K/uL (4.8-10.8) Red Blood Count 4.41 M/uL (4.2-5.4) Hemoglobin 12.5 g/dL (12.0-16.0) Hematocrit 37.1 % (37-47) Mean Corpuscular Volume 84.1 fL (80-100) Mean Corpuscular Hemoglobin 28.3 pg (25-34) Mean Corpuscular Hemoglobin Concent 33.7 g/dl (32-36) Platelet Count 277 K/uL (130-400) Mean Platelet Volume 9.3 fL (7.4-10.4) Neutrophils (%) (Auto) 51.5 % Lymphocytes (%) (Auto) 37.2 % Monocytes (%) (Auto) 8.5 % Eosinophils (%) (Auto) 2.4 % Basophils (%) (Auto) 0.3 % Neutrophils # (Auto) 4.83 K/uL (1.4-6.5) Lymphocytes # (Auto) 3.50 K/uL (1.2-3.4) Monocytes # (Auto) 0.80 K/uL (0.11-0.59) Eosinophils # (Auto) 0.23 K/uL (0-0.5) Basophils # (Auto) 0.03 K/uL (0-0.2) RDW Standard Deviation 39.6 fL (36.4-46.3) RDW Coefficient of Variation 13.0 % (11.5-14.5) Immature Granulocyte % (Auto) 0.1 % Immature Granulocyte # (Auto) 0.01 K/uL (0.00-0.02) Anion Gap 7.0 mmol/L (3-11) Est Creatinine Clear Calc Drug Dose 118.6 ml/min Estimated GFR () 129.9 Estimated GFR (Non- 112.1 BUN/Creatinine Ratio 21.5 (10-20) Calcium Level 8.9 mg/dl (8.5-10.1) Total Bilirubin 0.3 mg/dl (0.2-1) Direct Bilirubin < 0.1 mg/dl (0-0.2) Aspartate Amino Transf (AST/SGOT) 27 U/L (15-37) Alanine Aminotransferase (ALT/SGPT) 49 U/L (12-78) Alkaline Phosphatase 77 U/L (45-117) Troponin I < 0.015 ng/ml (0-0.045) Total Protein 7.5 gm/dl (6.4-8.2) Albumin 3.4 gm/dl (3.4-5.0) Lipase 199 U/L (73-393) Human Chorionic Gonadotropin, Quant 29338 mIU/mL Laboratory results per my review. Medications Administered Medications (Trade) Dose Ordered Sig/Victorina Route Start Time Stop Time Status Last Admin Dose Admin Sodium Chloride 1,000 ml @ 999 mls/hr Q1H1M STAT IV 05/12/17 23:17 05/13/17 00:17 DC 05/12/17 23:49 999 MLS/HR Ondansetron HCl (Zofran Inj) 4 mg NOW STAT IV 05/12/17 23:17 05/12/17 23:18 DC 05/12/17 23:49 4 MG ECG Indication: abdominal pain Rate (beats per minute): 75 Rhythm: normal sinus Findings: no ectopy, other (No ST segment abnormality) Comparison ECG Date: 07/13/16 Change: no significant change ED Course 2313: The patient was evaluated in room A11. A complete history and physical examination were performed. 2317: Zofran Inj 4mg IV, NSS 1,000 ml @ 999 mls/hr IV 0052: Upon reevaluation, the patient is resting comfortably. I discussed the results and treatment plan with her. She verbalized agreement of the treatment plan. She was discharged home. Medical Decision Differential diagnosis: Etiologies such as appendicitis, diverticulitis, PUD, biliary pathology, UTI, pancreatitis, obstruction, mesenteric ischemia, aortic pathology, infections, inflammatory bowel disease, renal colic, as well as others were entertained. Nursing notes reviewed. Patient's previous electronic medical records reviewed. The patient is a 27-year-old female who presented to the emergency apartment for an evaluation of abdominal pain. The patient feels this abdominal pain started sometime ago but she is also at this time. The patient was seen in our facility recently for similar complaints. At that time she had an ultrasound which showed an intrauterine gestational sac. Bedside ultrasound at this time shows an intrauterine gestational sac and no free fluid. The patient' s laboratory results compare similar to her recent visit. She did not have any episodes of tachycardia. The patient's physical exam was not consistent with an acute surgical abdomen. I discussed the patient's laboratory and radiographic studies with her. At this time I would recommend a follow-up appointment with her [facility] physician. Even though the patient feels that this is the same pain she's had in the past if there is a chance it could be something related to the I want her to follow-up with the [facility] physician is possible. She was also encouraged to rest and avoid any strenuous activity. She was also encouraged return to emergency department immediately if symptoms change worsen or need arises. I did give the patient instructions for threatened miscarriage and rule out ectopic because I wanted her to know what symptoms to return to the emergency department for even though I feel it is not likely the patient has an ectopic at this time. I discussed this with the patient and she was agreeable. Medication Reconcilliation Current Medication List: was personally reviewed by me Blood Pressure Screening Patient's blood pressure: Normal blood pressure Impression Primary Impression: Lower abdominal pain Additional Impression: Scribe Attestation The scribe's documentation has been prepared under my direction and personally reviewed by me in its entirety. I confirm that the note above accurately reflects all work, treatment, procedures, and medical decision making performed by me. Departure Information Dispostion Home / Self-Care Referrals Ravinder Artis M.D. (PCP) Forms HOME CARE DOCUMENTATION FORM, IMPORTANT VISIT INFORMATION, Work Instructions Patient Instructions ED Abdominal Pain Rule Out Ectopic, My [facility] Additional Instructions Call your [facility] physician and schedule follow-up appointment. Rest and avoid any strenuous activity. Continue all medications as prescribed. Continue using Tylenol as directed for pain. Problem Qualifiers Additional Impression:
[2017-05-12 23:29] LABS: URINE APPEARANCE CLEAR (CLEAR); URINE BILIRUBIN NEG (NEG); URINE COLOR YELLOW; URINE EPITHELIAL CELL AUTO >30 /lpf (0-5); URINE NITRITE NEG (NEG); URINE SPECIFIC GRAVITY 1.023 (1.000-1.030); UROBILINOGEN NEG (NEG)
[2017-05-12 23:40] LABS: MANUAL MICROSCOPIC REQUIRED? NO; REVIEW REQ? NO
[2017-05-12 23:52] LABS: BASO % 0.3 %; BASO ABS # 0.03 K/uL (0-0.2); COMPLETE YES; EOS % 2.4 %; HEMATOCRIT 37.1 % (37-47); IG% 0.1 %; LYMPH % 37.2 %; MEAN CELL VOLUME 84.1 fL (80-100); MEAN CORPUSCULAR HEMOGLOBIN 28.3 pg (25-34); MEAN CORPUSCULAR HGB CONC 33.7 g/dl (32-36); MEAN PLATELET VOLUME 9.3 fL (7.4-10.4); MONO % 8.5 %; NEUT % 51.5 %; PLATELET COUNT 277 K/uL (130-400); RED BLOOD COUNT 4.41 M/uL (4.2-5.4)
[2017-05-13 00:27] LABS: ALT/SGPT 49 U/L (12-78); BLOOD UREA NITROGEN 16 mg/dl (7-18); BUN/CREATININE RATIO 21.5 (10-20); CALCIUM 8.9 mg/dl (8.5-10.1); CARBON DIOXIDE 26 mmol/L (21-32); CHLORIDE 106 mmol/L (98-107); CREATININE 0.73 mg/dl (0.60-1.20); GLUCOSE 88 mg/dl (70-99); POTASSIUM 3.8 mmol/L (3.5-5.1); SODIUM 139 mmol/L (136-145)
[2017-05-13 00:32] LABS: ALKALINE PHOSPHATASE 77 U/L (45-117); AST/SGOT 27 U/L (15-37)
[2017-05-13 01:01] VITALS: BP 104/75; PULSE 71; O2SAT 98
== END 2017-05-13 01:02 | disposition home or self-care (01) ==
LOC: C.EDB 22:58 → C.EDA 05-13 01:02
DX: O26.899 Other specified pregnancy related conditions, unspecified trimester (principal); R10.30 Lower abdominal pain, unspecified; O99.340 Other mental disorders complicating pregnancy, unspecified trimester; F41.9 Anxiety disorder, unspecified; O99.519 Diseases of the respiratory system complicating pregnancy, unspecified trimester; J45.909 Unspecified asthma, uncomplicated; R42 Dizziness and giddiness; Z90.49 Acquired absence of other specified parts of digestive tract; Z98.818 Other dental procedure status; Z98.890 Other specified postprocedural states; Z83.3 Family history of diabetes mellitus; Z82.49 Family history of ischemic heart disease and other diseases of the circulatory system; Z84.1 Family history of disorders of kidney and ureter; Z79.899 Other long term (current) drug therapy

== ENCOUNTER → 2017-05-20 | Outpatient (CLI) | payer OTHER ==
[~2017-05-20] MED LIST changes: +AMOX500C3 PO; -FLX/5 PO; +ZFRODT/8 SL
[2017-05-20 16:04] LABS: BASO % 0.3 %; BASO ABS # 0.02 K/uL (0-0.2); COMPLETE YES; EOS % 2.6 %; HEMATOCRIT 38.1 % (37-47); IG% 0.1 %; LYMPH % 34.7 %; LYMPH ABS # 2.44 K/uL (1.2-3.4); MEAN CELL VOLUME 84.1 fL (80-100); MEAN CORPUSCULAR HEMOGLOBIN 28.9 pg (25-34); MEAN CORPUSCULAR HGB CONC 34.4 g/dl (32-36); MEAN PLATELET VOLUME 10.1 fL (7.4-10.4); MONO % 8.1 %; NEUT % 54.2 %; PLATELET COUNT 239 K/uL (130-400); RED BLOOD COUNT 4.53 M/uL (4.2-5.4); WHITE BLOOD COUNT 7.04 K/uL (4.8-10.8)
[2017-05-20 18:39] LABS: URINE APPEARANCE CLEAR (CLEAR); URINE BILIRUBIN NEG (NEG); URINE COLOR YELLOW; URINE EPITHELIAL CELL AUTO >30 /lpf (0-5); URINE NITRITE NEG (NEG); URINE PH 5.5 (4.5-7.5); URINE SPECIFIC GRAVITY 1.019 (1.000-1.030); UROBILINOGEN NEG (NEG)
[2017-05-20 18:40] LABS: MANUAL MICROSCOPIC REQUIRED? NO; REVIEW REQ? NO
[2017-05-23 14:27] LABS: CHLAMYDIA TRACH RNA*** NOT DETECTED (NOT DETECTED); GC (NEIS GONORRHOEAE)RNA** NOT DETECTED (NOT DETECTED)
== END | disposition home or self-care (01) ==
LOC: C.LAB1850 14:24
PROVIDERS: ATTEND Obstetrics & Gynecology
DX: Z34.81 Encounter for supervision of other normal pregnancy, first trimester (principal)

== ENCOUNTER 2017-05-25 00:14 | Emergency (ER) | payer OTHER ==
[~2017-05-25] VITALS: Ht 157.5 cm; Wt 91.0 kg
[~2017-05-25 00:14] MED LIST changes: -AMOX500C3 PO; -PRVHFAIN INH; -VLT500 PO; -ZFRODT/8 SL
[2017-05-25 00:18] VITALS: TEMP 36.6; Ht 157.5 cm; Wt 91.0 kg
[2017-05-25 01:26] VITALS: BP 95/72; PULSE 77; O2SAT 97
--- NOTE | 2017-05-25 04:54 | EMERGENCY ROOM VISIT NOTE ---
ED Visit Note First contact with patient: 00:23 CHIEF COMPLAINT: Wrist injury HISTORY OF PRESENT ILLNESS: This 27 year old white female patient presents to the emergency department complaining of pain in the left wrist after bumping it off something at home about 3 hours ago. The patient is able to move their wrist. The patient states the pain is dull and 5/10. No laceration, no weakness. No numbness or tingling. The patient denies any other injury. The patient is able to move their fingers and elbow without difficulty. The patient has not had a previous fracture to this wrist. The patient has taken nothing for the pain. REVIEW OF SYSTEMS: A 6 system review of systems was performed with positives and pertinent negatives in the HPI. ALLERGIES: See EMR MEDICATIONS: See EMR PMH: Currently SOCIAL HISTORY: Lives locally PHYSICAL EXAM: Vital Signs: Reviewed Nurse's notes, vital signs stable. GENERAL : White female, in no acute distress, but appears to be in pain, well-developed , well-neurished. NEURO: Alert and oriented to person place and time. Normal sensation to light and sharp touch. MUSCULOSKELETAL: There is no deformity of the left wrist. There is tenderness and edema over the distal radius. There is no snuff box tenderness. Range of motion is normal. There is no tenderness of the elbow, hand or fingers. Home Security Professional strength 5/5. Radial pulse 2+. SKIN: Normal and intact. The hand is warm and well perfused with capillary refill less than 2 seconds. EMERGENCY DEPARTMENT COURSE: Physical exam and history were performed. Nursing notes and EMR were reviewed. The patient appears to have suffered an injury to her left wrist a few hours ago. She does not have significant findings on exam. X-ray was performed and does not show acute fracture or dislocation. The patient will be given a wrist splint and asked to follow with orthopedics or her primary care physician for further management. She is reportedly and may use Tylenol and ice for relief of symptoms. She was otherwise invited back to the ER with any new, worsening, or concerning symptoms. Problem List Medical Problems: (1) Asthma, Unspecified Status: Chronic (2) Cholecystectomy Status: Resolved Current/Historical Medications Scheduled PRN Ondansetron Hcl (Zofran), 8 MG PO BID PRN for Nausea Allergies Coded Allergies: [place] Flavor (Verified Allergy, Severe, THROAT SWELLS, 05/25/17) Bee Venom (Verified Allergy, Intermediate, Swelling, 05/25/17) [place] (Verified Allergy, Intermediate, Swelling of throat and nausea , 05/25/17) Vital Signs Date Time Temp Pulse Resp B/P (MAP) Pulse Ox O2 Delivery O2 Flow Rate FiO2 05/25/17 01:26 77 18 95/72 97 05/25/17 00:47 78 20 113/69 96 Room Air 05/25/17 00:18 36.6 92 18 113/81 97 Room Air Departure Information Impression Primary Impression: Injury of left wrist Dispostion Home / Self-Care Condition GOOD Forms WORK / SCHOOL INSTRUCTIONS, HOME CARE DOCUMENTATION FORM, IMPORTANT VISIT INFORMATION Patient Instructions My [facility] Additional Instructions You were seen and evaluated today on an emergency basis only. This is not a substitute for, or an effort to provide, complete comprehensive medical care. It is not possible to recognize and treat all injuries or illnesses in a single emergency department visit. For this reason it is recommended that you followup with your primary care physician or orthopedics nurse if symptoms persist. You may use [id number] Tylenol 1000 mg every 6 hours as needed for pain control. Rest, ice, compress, and elevate for additional relief of symptoms. Wear your splint for comfort. You are welcome to return to the emergency department anytime with new, worsening, or concerning symptoms.
--- NOTE | 2017-05-25 06:43 | DIAGNOSTIC IMAGING REPORT ---
LEFT WRIST MIN 3 VIEWS ROUTINE CLINICAL HISTORY: Left wrist pain following fall. COMPARISON: None. TECHNIQUE: PA, bilateral oblique, and lateral views were obtained. Abdomen and pelvis were double shielded due to . FINDINGS: Alignment of the left wrist is anatomic. No acute fracture is identified. IMPRESSION: No acute fracture or dislocation of the left wrist. Electronically signed by: Yimi Huddleston M.D. 05/25/2017 6:42 AM Dictated Date/Time: 05/25/2017 6:40 AM
== END 2017-05-25 01:28 | disposition home or self-care (01) ==
LOC: C.EDB 00:15
DX: S69.92XA Unspecified injury of left wrist, hand and finger(s), initial encounter (principal); W22.8XXA Striking against or struck by other objects, initial encounter; Y92.019 Unspecified place in single-family (private) house as the place of occurrence of the external cause; Z33.1 Pregnant state, incidental; J45.909 Unspecified asthma, uncomplicated; Z90.49 Acquired absence of other specified parts of digestive tract; Z91.018 Allergy to other foods

== ENCOUNTER 2017-06-17 10:12 | Emergency (ER) | payer OTHER ==
[~2017-06-17] VITALS: Ht 157.5 cm; Wt 87.8 kg
[~2017-06-17 10:12] MED LIST changes: -ACET-1256 PO; -ESCI10TA17 PO
[2017-06-17 10:22] VITALS: TEMP 36.7; Ht 157.5 cm; Wt 87.8 kg
--- NOTE | 2017-06-17 11:07 | EMERGENCY ROOM VISIT NOTE ---
History First contact with patient: 10:56 Chief Complaint: HEAD INJURY (MINOR) Stated Complaint: DIZZY, NAUSEA, BARRAZA, HIT HEAD YESTERDAY History of Present Illness The patient is a 27 year old female who presents to the Emergency Room via private vehicle accompanied by male with complaints of "dizzy, nausea, headache , hit head yesterday". The patient states that around 8:30 PM, mid fumigate their house because of Y's, she states that he went to the playground, and had her child up on a piece of a [place], and when she went to bend down the walk forward and she struck her head off one of the metal bars. She states that she immediately began to feel dizzy, lightheaded and nauseous. The headache has worsened since that event. She rates the pain as a 10/10. She is taking Tylenol PM without relief. She is currently 10 weeks . She has associated light sensitivity, and nausea. She denies any neck pain at rest, vomiting. Review of Systems A complete 6-point Review of Systems was discussed with the patient, with pertinent positives and negatives listed in the History of Present Illness. All remaining Review of Systems questions can be considered negative unless otherwise specified. Past Medical/Surgical History Medical Problems: (1) Anxiety State Nos (2) Asthma, Unspecified (3) Cholecystectomy (4) Depressive Disorder Nec (5) Esophageal Reflux (6) Lumbago (7) Obesity, Nos (8) 25 weeks 3 days (9) Pyelonephritis Nos (10) Tobacco Use Disorder (11) Toxemia of (12) Uterine contractions at greater than 20 weeks of gestation Family History Cancer Diabetes mellitus FHx: gallbladder disease Heart disease Hypertension Kidney disease Kidney stones Lung disease Social History Smoking Status: Never Smoker Alcohol Use: none Drug Use: none Marital Status: Housing Status: lives with family Occupation Status: employed Current/Historical Medications Scheduled PRN Ondansetron Hcl (Zofran), 8 MG PO BID PRN for Nausea Physical Exam Vital Signs Date Time Temp Pulse Resp B/P (MAP) Pulse Ox O2 Delivery O2 Flow Rate FiO2 06/17/17 11:35 84 18 113/78 97 06/17/17 10:22 36.7 73 18 112/80 98 Room Air Physical Exam VITAL SIGNS - Vital signs and nursing notes were reviewed. Patient is afebrile , normotensive, non-tachycardic and saturating well on room air 98%. GENERAL -27-year-old female appearing her stated age who is in no acute distress. Communicates well with provider and answers questions appropriately. SKIN - Without rashes. No petechial rashes. For head unremarkable. HEAD - NC/AT. No nicole signs or raccoons eyes. EYES - PERRL with EOMI bilaterally. Sclera anicteric. No hyphema. EARS - No deformities of external structures noted on gross examination bilaterally. No pain elicited with palpation of the tragus bilaterally. External auditory canals without discharge or otorrhea. Tympanic membranes pearly [place] without retraction or bulging. No fluid or purulent material visualized behind the TM. Handle of malleus, umbo, cone of light, pars tensa/ flaccid all easily visualized. No hemotympanum. NOSE - Midline and without cyanosis. No epistaxis or purulent drainage noted. MOUTH/OROPHARYNX - Without perioral cyanosis. Buccal mucosa pink and moist and without leukoplakia. Tongue midline with equal elevation of palate bilaterally. No tonsillar hypertrophy, erythema, or exudates noted. Fair dentition noted. NECK - Neck with FROM. Supple to palpation. There is right-sided paraspinous musculature tenderness in the cervical spine. No bony tenderness. No C-spine bony tenderness. LUNGS - Chest wall symmetric without accessory muscle use, intercostals retractions, or central cyanosis. Normal vesicular breath sounds CTA B/L. No wheezes, rales, or rhonchi appreciated. CARDIAC - RRR with S1/S2. No murmur, rubs, or gallops appreciated. EXTREMITIES - No clubbing or peripheral cyanosis. No pretibial edema present. No neurovascular deficits appreciated upon examination. +5/5 strength noted in UE/LE bilaterally. NEUROLOGIC - Cranial nerves II through XII grossly intact. Sensory intact to light touch throughout. PSYCH - A&O. Pt is very pleasant and interacts well with examiner. Medical Decision & Procedures Medical Decision Patient was seen and evaluated as above. She presents to us today with a headache, nausea, light sensitivity, and neck pain. On my examination the neck pain is in the paraspinous musculature, therefore do not believe that a CT scan of the neck is warranted. No evidence of neurovascular deficit. There is no numbness in the extremities. Patient has a GCS of 15, and no findings to warrant a CT scan. I did offer a CT scan of the patient, after discussing benefits versus risk and the decision was made to not scan. She is 10 weeks . I believe that the risk of scanning outweighs the benefit. At this time I believe she is expressing a concussion, and do recommend outpatient follow-up as well as conservative management. At this time she appears stable for discharge. The patient is to follow-up with her family doctor. She is to return with worsening. She was educated upon worrisome symptoms which to return , had questions answered prior to discharge, and was discharged home in good condition. In the evaluation and treatment of this patient, the following differential diagnoses were considered: Concussion, Contrecoup Injury, Brain Tumor, Depression, Encephalitis, Hypothyroidism, Meningitis, CVA, TIA, Migraine, Cluster Headache, Intracranial Abnormality, Intracranial Hemorrhage, Subdural Hematoma, Subarachnoid Hemorrhage, Hydrocephalus. Impression Primary Impression: Closed head injury Additional Impression: Concussion Departure Information Dispostion Home / Self-Care Condition GOOD Referrals Ravinder Artis M.D. (PCP) Patient Instructions ED Concussion, [facility] Additional Instructions You have been treated in the Emergency Department for a Closed Head Injury. For Pain: - Regular strength (325mg/tab) Tylenol (acetaminophen) 2 tabs every 4-6 hours as needed. Do not exceed 12 tablets in a 24 hour period. Avoid taking more than 3 grams (3000 mg) of Tylenol per day. This includes any other sources of acetaminophen you may take on a regular basis. You should relax in a quiet, dark place for the rest of the day. Avoid any possible triggers including: cigarette smoke, caffeine, nicotine, chocolate, wine, beer, loud noises or music, or bright lights. You should schedule a follow-up appointment in 2-3 days with your Primary Care Provider for further evaluation and treatment of your Headache. Return to the Emergency Department if your current symptoms worsen despite treatment course outlined above, or if you develop any of the following symptoms : intractable pain despite aforementioned treatment course, visual disturbances , loss of vision, unilateral weakness or facial drooping, slurring of speech, loss of coordination, or loss of consciousness. Problem Qualifiers
[2017-06-17 11:35] VITALS: BP 113/78; PULSE 84; O2SAT 97
== END 2017-06-17 11:36 | disposition home or self-care (01) ==
LOC: C.EDB 10:15
DX: S09.90XA Unspecified injury of head, initial encounter (principal); S06.0X0A Concussion without loss of consciousness, initial encounter; W22.8XXA Striking against or struck by other objects, initial encounter; K21.9 Gastro-esophageal reflux disease without esophagitis; F41.9 Anxiety disorder, unspecified; J45.909 Unspecified asthma, uncomplicated; F32.9 Major depressive disorder, single episode, unspecified; F17.200 Nicotine dependence, unspecified, uncomplicated; Z87.440 Personal history of urinary (tract) infections; Z90.49 Acquired absence of other specified parts of digestive tract; Z80.9 Family history of malignant neoplasm, unspecified; Z83.3 Family history of diabetes mellitus; Z83.79 Family history of other diseases of the digestive system; Z82.49 Family history of ischemic heart disease and other diseases of the circulatory system

== ENCOUNTER 2017-06-27 17:50 | Emergency (ER) | payer OTHER ==
[~2017-06-27] VITALS: Ht 157.5 cm; Wt 88.9 kg
[2017-06-27 17:55] VITALS: TEMP 36.4; Ht 157.5 cm; Wt 88.9 kg
[2017-06-27] MEDS ORDERED: ACETAMINOPHEN 500 MG TAB PO STA (18:33)
[2017-06-27] MEDS ORDERED: SODIUM CHLORIDE 0.9% 1000ML 1,000 ML IV ONE (18:45)
[2017-06-27] MEDS ORDERED: ONDANSETRON INJ 2 MG/ML 2 ML VIAL IV PRN (18:45)
--- NOTE | 2017-06-27 18:51 | EMERGENCY ROOM VISIT NOTE ---
History Report prepared by Jaylon: Jerome Murdock Under the Supervision of: Dr. Weston Horne M.D. First contact with patient: 18:26 Chief Complaint: HEADACHE Stated Complaint: MIGRANE THE LAST 5 DAYS History of Present Illness The patient is a 27 year old female who presents to the Emergency Room with complaints of intermittent headaches beginning seven days ago. The patient states that 10 days ago, she was picking her son up from the play ground, and she hit her head on a metal pole. She reports that she was told she had a concussion, but she did not have a CT scan because she is . The patient notes that she has had intermittent headaches since. She states that she has a history of migraines, and she typically uses Tylenol to alleviate her symptoms. The patient reports that she has been using Tylenol at home, but it is not helping her. She notes that her headache goes across the front of her head. The patient states that she is not eating much because she is nauseous. She reports that the light bothers her eyes, and she is not able to sleep through the night. The patient denies urinary symptoms, difficulty walking, difficulty talking, and numbness in her hands or feet. Source of History: patient Onset: seven days ago Position: head Quality: ache Timing: intermittent Modifying Factors (Worsening): other (light) Associated Symptoms: + nausea, No urinary symptoms, No numbness Note: Associated symptoms: decreased appetite, decreased sleep Denies:difficulty walking, difficulty talking Review of Systems All systems have been listed, reviewed, and are negative other than those previously mentioned. Please see Additional Medical History Sheet. Past Medical & Surgical Medical Problems: (1) Anxiety State Nos (2) Asthma, Unspecified (3) Cholecystectomy (4) Depressive Disorder Nec (5) Esophageal Reflux (6) Lumbago (7) Obesity, Nos (8) 25 weeks 3 days (9) Pyelonephritis Nos (10) Tobacco Use Disorder (11) Toxemia of (12) Uterine contractions at greater than 20 weeks of gestation Family History Cancer Diabetes mellitus FHx: gallbladder disease Heart disease Hypertension Kidney disease Kidney stones Lung disease Social History Smoking Status: Never Smoker Alcohol Use: none Drug Use: none Marital Status: Housing Status: lives with family Occupation Status: employed Current/Historical Medications Scheduled PRN Acetaminophen (Tylenol), 1,000 MG PO UD PRN for Migraine Albuterol (Ventolin Hfa), 2 PUFFS INH UD PRN for SOB/Wheezing Ondansetron (Ondansetron Odt), 8 MG SL BID PRN for Nausea Valacyclovir HCl (Valacyclovir HCl), 500 MG PO UD PRN for Outbreaks Allergies Coded Allergies: [place] Flavor (Verified Allergy, Severe, THROAT SWELLS, 06/17/17) Bee Venom (Verified Allergy, Intermediate, Swelling, 06/17/17) [place] (Verified Allergy, Intermediate, Swelling of throat and nausea , 06/17/17) Physical Exam Vital Signs Date Time Temp Pulse Resp B/P (MAP) Pulse Ox O2 Delivery O2 Flow Rate FiO2 06/27/17 19:54 82 18 119/76 99 Room Air 06/27/17 17:55 36.4 87 16 112/80 98 Room Air Physical Exam GENERAL: Patient awake, alert, oriented x 3. Patient follows commands. Patient does not appear toxic. Patient is adequately hydrated and well- nourished. Patient appears to be in minimal distress. SKIN: No erythema, pallor, cyanosis or rash HEENT: Normal head, pupils equal, reactive to light and accommodation. Ears normal. Oral cavity and posterior pharynx appear normal. Minimal photophobia. Neck: Supple. Without adenopathy, no neck vein distention. LUNGS: Clear to auscultation. No wheezes, no rales, no rhonchi. HEART: No murmurs. No gallops. No rubs ABDOMEN: Soft and non-tender. No masses, no rebound, no hepatomegaly or splenomegaly. EXTREMITIES: No signs of trauma or infection. No pedal or pretibial edema. No calf or thigh tenderness. NEUROLOGIC: Cranial nerves II-XII within normal limits. No gross motor sensory function deficits. Medical Decision & Procedures Laboratory Results 06/27/17 18:58 06/27/17 18:58 Test 06/27/17 18:58 Red Blood Count 4.36 M/uL (4.2-5.4) Mean Corpuscular Volume 83.3 fL (80-100) Mean Corpuscular Hemoglobin 29.8 pg (25-34) Mean Corpuscular Hemoglobin Concent 35.8 g/dl (32-36) RDW Standard Deviation 37.8 fL (36.4-46.3) RDW Coefficient of Variation 12.6 % (11.5-14.5) Mean Platelet Volume 9.1 fL (7.4-10.4) Anion Gap 5.0 mmol/L (3-11) Est Creatinine Clear Calc Drug Dose 177.1 ml/min Estimated GFR () > 150.0 Estimated GFR (Non- 132.6 BUN/Creatinine Ratio 15.7 (10-20) Calcium Level 8.8 mg/dl (8.5-10.1) Laboratory results as stated above per my review. Medications Administered Medications (Trade) Dose Ordered Sig/Victorina Route Start Time Stop Time Status Last Admin Dose Admin Acetaminophen (Tylenol Tab) 1,000 mg NOW STAT PO 06/27/17 18:33 06/27/17 18:34 DC 06/27/17 19:08 1,000 MG Sodium Chloride 1,000 ml @ 1,000 mls/hr Q1H ONCE IV 06/27/17 18:45 06/27/17 19:44 DC 06/27/17 19:08 1,000 MLS/HR Ondansetron HCl (Zofran Inj) 4 mg Q1HWA PRN IV 06/27/17 18:45 07/27/17 18:44 06/27/17 19:08 4 MG ED Course 1830: Past medical records reviewed. The patient was evaluated in room B10. A complete history and physical examination was performed. 1832: Ordered Acetaminophen 1000mg PO 5: Ordered Ondansetron HCl 4mg IV, Sodium Chloride 1000 ml @ 1000 mls/hr IV 1956: Upon reevaluation, the patient appeared to have improvement of her symptoms. She still has a mild headache, but we elected not to give her more medication. The patient has Zofran at home to take as needed. I discussed today' s findings with her. She verbalized agreement of the treatment plan. The patient was discharged home. Medical Decision I considered multiple diagnoses including: migraine, tension, cluster, or sinus headache; meningitis; encephalitis; post-concussion syndrome, pre-eclampsia, eclampsia. The patient has a long history of recurrent "migraine"headaches. The patient is . She believes that she may have had a concussion about a week and a half ago but symptoms from that concussion resolved about 1 week ago. Today' s headache is in her for had on both sides. She has slight photophobia. She has slight nausea. Potassium was slightly low. The patient was given Tylenol and Zofran here. She was given IV fluids. The patient was reevaluated and felt significantly better. Patient does not have signs and symptoms to suggest preeclampsia. I believe the patient can safely return home. The patient is to follow-up with her family physician and/or speaking unit assembler. Impression Primary Impression: Tension headache Additional Impressions: Hypokalemia Scribe Attestation The scribe's documentation has been prepared under my direction and personally reviewed by me in its entirety. I confirm that the note above accurately reflects all work, treatment, procedures, and medical decision making performed by me. Departure Information Dispostion Home / Self-Care Referrals Ravinder Artis M.D. (PCP) Forms HOME CARE DOCUMENTATION FORM, IMPORTANT VISIT INFORMATION Patient Instructions My [facility] Additional Instructions Drink at least 2-3 quarts of liquid over the next 24 hours. 650 mg of Tylenol every 4 hours as needed for headache. REST Follow-up with your family physician or your speaking unit assembler if your headache is no better in the next 3 days. Increase potassium in your diet. Problem Qualifiers
[2017-06-27 19:08] LABS: HEMATOCRIT 36.3 % (37-47); MEAN CELL VOLUME 83.3 fL (80-100); MEAN CORPUSCULAR HEMOGLOBIN 29.8 pg (25-34); MEAN CORPUSCULAR HGB CONC 35.8 g/dl (32-36); MEAN PLATELET VOLUME 9.1 fL (7.4-10.4); PLATELET COUNT 234 K/uL (130-400); RED BLOOD COUNT 4.36 M/uL (4.2-5.4); WHITE BLOOD COUNT 8.42 K/uL (4.8-10.8)
[2017-06-27] MEDS ORDERED: ZFRODT/8 SL (19:12)
[2017-06-27] MEDS ORDERED: PRVHFAIN INH (19:12)
[2017-06-27] MEDS ORDERED: ACET-1256 PO (19:12)
[2017-06-27] MEDS ORDERED: VLT500 PO (19:12)
[2017-06-27 19:25] LABS: BLOOD UREA NITROGEN 8 mg/dl (7-18); BUN/CREATININE RATIO 15.7 (10-20); CALCIUM 8.8 mg/dl (8.5-10.1); CARBON DIOXIDE 27 mmol/L (21-32); CHLORIDE 105 mmol/L (98-107); CREATININE 0.49 mg/dl (0.60-1.20); GLUCOSE 97 mg/dl (70-99); POTASSIUM 3.2 mmol/L (3.5-5.1); SODIUM 137 mmol/L (136-145)
[2017-06-27 20:48] VITALS: BP 125/81; PULSE 81; O2SAT 100
== END 2017-06-27 20:50 | disposition home or self-care (01) ==
LOC: C.EDB 17:51
DX: G44.209 Tension-type headache, unspecified, not intractable (principal); Z33.1 Pregnant state, incidental; E87.6 Hypokalemia; Z87.820 Personal history of traumatic brain injury; F41.9 Anxiety disorder, unspecified; F32.9 Major depressive disorder, single episode, unspecified; J45.909 Unspecified asthma, uncomplicated; K21.9 Gastro-esophageal reflux disease without esophagitis; F17.200 Nicotine dependence, unspecified, uncomplicated; Z87.440 Personal history of urinary (tract) infections; Z90.49 Acquired absence of other specified parts of digestive tract; Z91.018 Allergy to other foods; Z91.030 Bee allergy status; Z80.9 Family history of malignant neoplasm, unspecified; Z83.3 Family history of diabetes mellitus; Z83.79 Family history of other diseases of the digestive system; Z82.49 Family history of ischemic heart disease and other diseases of the circulatory system; Z84.1 Family history of disorders of kidney and ureter

== ENCOUNTER 2017-07-17 19:56 | Emergency (ER) | payer OTHER ==
[~2017-07-17] VITALS: Ht 154.9 cm; Wt 89.6 kg
[~2017-07-17 19:56] MED LIST changes: +ACET-1256 PO; -ONDA8TAB6 PO; +PRVHFAIN INH; +VLT500 PO; +ZFRODT/8 SL
[2017-07-17 20:01] VITALS: TEMP 36.6; Ht 154.9 cm; Wt 89.6 kg
[2017-07-17 20:46] LABS: URINE APPEARANCE CLEAR (CLEAR); URINE BILIRUBIN NEG (NEG); URINE COLOR YELLOW; URINE EPITHELIAL CELL AUTO >30 /lpf (0-5); URINE NITRITE NEG (NEG); URINE PH 6.5 (4.5-7.5); URINE SPECIFIC GRAVITY 1.029 (1.000-1.030); UROBILINOGEN NEG (NEG)
[2017-07-17 20:49] LABS: MANUAL MICROSCOPIC REQUIRED? NO; REVIEW REQ? YES
--- NOTE | 2017-07-17 21:07 | EMERGENCY ROOM VISIT NOTE ---
History Report prepared by Jaylon: Jhon Cook Under the Supervision of: Dr. Luis Enrique Cobos M.D. First contact with patient: 20:05 Chief Complaint: URINARY SYMPTOMS Stated Complaint: KIDNEY PAIN, POSSIBLE UTI Nursing Triage Summary: Patient presents to triage via wheelchair, states "I am having some pain in both of my kidneys. I think I have a UTI. I am 15 weeks ." Patient reports vaginal discharge that is "a mucousy color." History of Present Illness The patient is a 27 year old female who presents to the Emergency Room with complaints of persistent urinary symptoms beginning yesterday. Her symptoms include bilateral low back pain, increased urinary frequency, and burning with urination. The patient is 15 weeks . She has a history of UTI's and states that her current symptoms feel like a typical UTI. The patient also complains of a mucous-like vaginal discharge and occasional chills. She denies any fevers or leg swelling. She has not noticed any blood in her urine. The patient had an ultrasound two months ago which revealed a 3 mm intrauterine gestational sac. This is her third . She has no history of miscarriage or ectopic . The patient has a history of preeclampsia with her second . She has a history of UTI's and states that her current symptoms feel like a typical UTI. Onset: Yesterday Quality: other (urinary symptoms) Timing: other (persistent) Associated Symptoms: + chills (occasional), + back pain (bilateral low), No fevers Note: The patient also complains of a mucous-like vaginal discharge. She denies any leg swelling. Review of Systems See HPI for pertinent positives & negatives. A total of 10 systems reviewed and were otherwise negative. Past Medical & Surgical Medical Problems: (1) Anxiety State Nos (2) Asthma, Unspecified (3) Cholecystectomy (4) Depressive Disorder Nec (5) Esophageal Reflux (6) Lumbago (7) Obesity, Nos (8) 25 weeks 3 days (9) Pyelonephritis Nos (10) Tobacco Use Disorder (11) Toxemia of (12) Uterine contractions at greater than 20 weeks of gestation Old medical records were reviewed. Nurse's notes were reviewed and I agree with. This is her third . Denies ectopic or miscarriage history Family History Cancer Diabetes mellitus FHx: gallbladder disease Heart disease Hypertension Kidney disease Kidney stones Lung disease Social History Smoking Status: Never Smoker Alcohol Use: none Drug Use: none Marital Status: Housing Status: lives with family Occupation Status: employed Current/Historical Medications Scheduled Amoxicillin (Amoxil), 500 MG PO TID Scheduled PRN Acetaminophen (Tylenol), 1,000 MG PO UD PRN for Migraine Albuterol (Ventolin Hfa), 2 PUFFS INH UD PRN for SOB/Wheezing Ondansetron (Ondansetron Odt), 8 MG SL BID PRN for Nausea Valacyclovir HCl (Valacyclovir HCl), 500 MG PO UD PRN for Outbreaks Allergies Coded Allergies: [place] Flavor (Verified Allergy, Severe, THROAT SWELLS, 07/17/17) Bee Venom (Verified Allergy, Intermediate, Swelling, 07/17/17) [place] (Verified Allergy, Intermediate, Swelling of throat and nausea , 07/17/17) Physical Exam Vital Signs Date Time Temp Pulse Resp B/P (MAP) Pulse Ox O2 Delivery O2 Flow Rate FiO2 07/17/17 21:33 84 20 118/73 98 Room Air 07/17/17 20:01 36.6 108 20 146/77 97 Room Air Physical Exam General: Well developed well nourished in no acute distress, breathing comfortably on room air. Normal speech HEENT: Normal cephalic atraumatic. Pupils are equal round and reactive to light. Extraocular movements are intact. Oropharynx is pink with moist mucous membranes. No swelling of the mouth lips or tongue. Neck: Supple with a midline trachea. No meningeal signs or stiffness, no JVD or bruits. No Stridor. Chest: Clear to auscultation bilaterally. No wheezes or rhonchi. No increased work of breathing. Heart: regular rate and rhythm. Abdomen: Soft nontender, nondistended without rebound guarding or rigidity. Extremities: No cyanosis clubbing or edema. No calf tenderness or assymetry Spine/Back. Non tender to palpation. No CVA tenderness Skin: Good turgor without rashes. Neurologic exam: Cranial nerves two through 12 are intact. Motor and sensation are intact and symmetrical throughout. Medical Decision & Procedures Laboratory Results Test 07/17/17 20:30 Urine Color YELLOW Urine Appearance CLEAR (CLEAR) Urine pH 6.5 (4.5-7.5) Urine Specific [place] 1.029 (1.000-1.030) Urine Protein NEG (NEG) Urine Glucose (UA) NEG (NEG) Urine Ketones NEG (NEG) Urine Occult Blood NEG (NEG) Urine Nitrite NEG (NEG) Urine Bilirubin NEG (NEG) Urine Urobilinogen NEG (NEG) Urine Leukocyte Esterase MODERATE (NEG) Urine WBC (Auto) >30 /hpf (0-5) Urine RBC (Auto) 0-4 /hpf (0-4) Urine Hyaline Casts (Auto) 5-10 /lpf (0-5) Urine Epithelial Cells (Auto) >30 /lpf (0-5) Urine Bacteria (Auto) 1+ (NEG) Laboratory studies as stated above per my review. ED Course 2006: Past medical records reviewed. The patient was evaluated in room B10, and a complete history and physical examination were performed. 2107: Upon reevaluation, the patient is resting comfortably. I discussed the results and treatment plan with her. She verbalized agreement of the treatment plan. The patient was discharged home. 2114: Ordered Amoxil Cap 500 mg PO. Medical Decision Differentials include, but are not limited to; UTI, kidney infection, kidney stone, complication, and electrolyte or metabolic abnormality. This patient comes in as described above. She was placed in room B 10. She is having urinary symptoms. She is . She had an ultrasound which showed an IUP early on. She is estimate she is 15 weeks . She's in about a full bleeding or discharge she's had some dysuria and frequency. She's has nothing to suggest contractions. She has nothing to suggest sepsis or trauma. Urinalysis shows findings to suggest a UTI however there are epithelial cells as well so it is not a perfect clean catch. Given her symptoms, I will treat her with amoxicillin 500 mg 3 times a day for 7 days. Additionally, she should follow up with her regular doctor or manager engagement on Wednesday for recheck or return here over the weekend if: worsening of symptoms, fever or chills, problems with the , she has bleeding or contractions any new problems or concerns. She is happy the plan and discharged to home. Medication Reconcilliation Current Medication List: was personally reviewed by me Blood Pressure Screening Patient's blood pressure: Elevated blood pressure Blood pressure disposition: Elevated BP felt to be situational Impression Primary Impression: UTI (urinary tract infection) Additional Impression: Scribe Attestation The scribe's documentation has been prepared under my direction and personally reviewed by me in its entirety. I confirm that the note above accurately reflects all work, treatment, procedures, and medical decision making performed by me. Departure Information Dispostion Home / Self-Care Prescriptions Amoxicillin (AMOXIL) 500 Mg Cap 500 MG PO TID, #21 CAP Prov: Luis Enrique Cobos M.D. 07/17/17 Referrals Ravinder Artis M.D. (PCP) Forms HOME CARE DOCUMENTATION FORM, IMPORTANT VISIT INFORMATION Patient Instructions My [facility] Additional Instructions Rest Drink plenty of fluids REturn if: worsening of symptoms, fever, increasing pain, vomiting, vaginal bleeding, any new problems or concerns Use Amoxicillin 500 mg three times a day for 7 days Follow-up with your doctor for recheck on Wednesday or Wednesday. Return to ER over the weekend if symptoms worsen in anyway Problem Qualifiers
[2017-07-17] MEDS ORDERED: AMOX500C3 PO (21:14)
[2017-07-17] MEDS ORDERED: AMOXICILLIN 500 MG CAP PO ONE (21:15)
[2017-07-17 21:33] VITALS: BP 118/73; PULSE 84; O2SAT 98
== END 2017-07-17 21:45 | disposition home or self-care (01) ==
LOC: C.EDB 19:58
DX: O23.42 Unspecified infection of urinary tract in pregnancy, second trimester (principal); O26.892 Other specified pregnancy related conditions, second trimester; O99.342 Other mental disorders complicating pregnancy, second trimester; O99.512 Diseases of the respiratory system complicating pregnancy, second trimester; O99.612 Diseases of the digestive system complicating pregnancy, second trimester; F32.9 Major depressive disorder, single episode, unspecified; F41.9 Anxiety disorder, unspecified; K21.9 Gastro-esophageal reflux disease without esophagitis; J45.909 Unspecified asthma, uncomplicated; Z3A.15 15 weeks gestation of pregnancy; Z79.899 Other long term (current) drug therapy; Z87.440 Personal history of urinary (tract) infections; Z87.448 Personal history of other diseases of urinary system; Z82.49 Family history of ischemic heart disease and other diseases of the circulatory system; Z83.3 Family history of diabetes mellitus; Z83.6 Family history of other diseases of the respiratory system; Z83.79 Family history of other diseases of the digestive system; Z84.1 Family history of disorders of kidney and ureter

== ENCOUNTER → 2017-07-28 | Outpatient (CLI) | payer OTHER ==
[~2017-07-28] MED LIST changes: +AMOX500C3 PO
[2017-07-28 18:48] LABS: GTGD 50 Grams
[2017-07-30 14:48] LABS: AFPTS GESTATIONAL AGE 16.7 WEEKS; AFPTS INSULIN DEP DIABETIC? NO; AFPTS MATERNAL WT 196 LBS; ALPHA-FETOPROTEIN RACE CAUCASIAN=W; EDD DETERMINED BY ULTRASOUND; HISTORY OF NTD NO; REPEAT SAMPLE? NO
== END | disposition home or self-care (01) ==
LOC: C.LAB1850 16:53
PROVIDERS: ATTEND Obstetrics & Gynecology
DX: Z34.82 Encounter for supervision of other normal pregnancy, second trimester (principal)

== ENCOUNTER 2017-08-07 17:00 | Outpatient (CLI) | payer OTHER ==
[~2017-08-07 17:00] MED LIST changes: -AMOX500C3 PO
[2017-08-07] MEDS ORDERED: LACTATED RINGER'S 1000ML 500 ML IV ONE (17:37)
[2017-08-07] MEDS ORDERED: LACTATED RINGER'S 1000ML 1,000 ML IV SCH (17:37)
[2017-08-07] MEDS ORDERED: ONDANSETRON INJ 2 MG/ML 2 ML VIAL IV PRN (17:45)
[2017-08-07 17:57] LABS: URINE APPEARANCE CLEAR (CLEAR); URINE BILIRUBIN NEG (NEG); URINE COLOR YELLOW; URINE EPITHELIAL CELL AUTO >30 /lpf (0-5); URINE NITRITE NEG (NEG); URINE SPECIFIC GRAVITY 1.024 (1.000-1.030); UROBILINOGEN NEG (NEG); ZZUR CULT IF INDIC CLEAN CATCH YES
[2017-08-07 18:02] LABS: MANUAL MICROSCOPIC REQUIRED? NO; REVIEW REQ? NO
[2017-08-21] MEDS ORDERED: AZITTAB PO (21:58)
== END 2017-08-07 19:55 | disposition home or self-care (01) ==
LOC: C.LD 17:00 → C.OPB 17:00
PROVIDERS: ATTEND Obstetrics & Gynecology
DX: O46.92 Antepartum hemorrhage, unspecified, second trimester (principal); R10.9 Unspecified abdominal pain; Z3A.18 18 weeks gestation of pregnancy

== ENCOUNTER 2017-08-13 00:29 | Emergency (ER) | payer OTHER ==
[~2017-08-13] VITALS: Ht 162.6 cm; Wt 92.0 kg
[2017-08-13 00:33] VITALS: TEMP 36.7; Ht 162.6 cm; Wt 92.0 kg
[2017-08-13] MEDS ORDERED: DiphenhydrAMINE HCL 50 MG/ML VIAL IV STA (00:47)
[2017-08-13 00:50] VITALS: O2SAT 95
[2017-08-13 01:02] LABS: BASO % 0.2 %; BASO ABS # 0.02 K/uL (0-0.2); COMPLETE YES; EOS % 1.4 %; HEMATOCRIT 34.4 % (37-47); IG% 0.1 %; LYMPH % 29.9 %; LYMPH ABS # 2.61 K/uL (1.2-3.4); MEAN CELL VOLUME 83.9 fL (80-100); MEAN CORPUSCULAR HEMOGLOBIN 28.5 pg (25-34); MEAN PLATELET VOLUME 9.1 fL (7.4-10.4); MONO % 6.8 %; NEUT % 61.6 %; PLATELET COUNT 218 K/uL (130-400); WHITE BLOOD COUNT 8.73 K/uL (4.8-10.8)
[2017-08-13 01:26] LABS: ALT/SGPT 17 U/L (12-78); AST/SGOT 13 U/L (15-37); BLOOD UREA NITROGEN 11 mg/dl (7-18); BUN/CREATININE RATIO 24.2 (10-20); CALCIUM 8.5 mg/dl (8.5-10.1); CARBON DIOXIDE 26 mmol/L (21-32); CHLORIDE 107 mmol/L (98-107); CREATININE 0.47 mg/dl (0.60-1.20); GLUCOSE 88 mg/dl (70-99); POTASSIUM 3.9 mmol/L (3.5-5.1); SODIUM 138 mmol/L (136-145)
[2017-08-13 01:29] LABS: ALKALINE PHOSPHATASE 77 U/L (45-117)
--- NOTE | 2017-08-13 01:57 | EMERGENCY ROOM VISIT NOTE ---
History First contact with patient: 00:37 Chief Complaint: ANXIETY Stated Complaint: CHEST PAINS History of Present Illness The patient is a 27 year old female who presents to the Emergency Room with complaints of anxiety attack after getting into an argument with her boyfriend. Patient states with her anxiety she gets chest pains. She is currently 19 weeks . No problems with the . Patient states she feels quite worked up. Patient states she does feel safe at home. Patient denies dyspnea, fever, chills, radiating pain, abdominal pain, nausea, vomiting, diarrhea, problems with the , with pain or swelling. Review of Systems See HPI for pertinent positives & negatives. A total of 10 systems reviewed and were otherwise negative. Past Medical/Surgical History Medical Problems: (1) Anxiety State Nos (2) Asthma, Unspecified (3) Cholecystectomy (4) Depressive Disorder Nec (5) Esophageal Reflux (6) Lumbago (7) Obesity, Nos (8) 25 weeks 3 days (9) related abdominal pain of lower quadrant, antepartum (10) Pyelonephritis Nos (11) Tobacco Use Disorder (12) Toxemia of (13) Uterine contractions at greater than 20 weeks of gestation Family History Cancer Diabetes mellitus FHx: gallbladder disease Heart disease Hypertension Kidney disease Kidney stones Lung disease Social History Smoking Status: Never Smoker Alcohol Use: none Drug Use: none Marital Status: Housing Status: lives with family Occupation Status: employed Current/Historical Medications Scheduled PRN Acetaminophen (Tylenol), 1,000 MG PO UD PRN for Migraine Albuterol (Ventolin Hfa), 2 PUFFS INH UD PRN for SOB/Wheezing Ondansetron (Ondansetron Odt), 8 MG SL BID PRN for Nausea Valacyclovir HCl (Valacyclovir HCl), 500 MG PO UD PRN for Outbreaks Physical Exam Vital Signs Date Time Temp Pulse Resp B/P (MAP) Pulse Ox O2 Delivery O2 Flow Rate FiO2 08/13/17 01:45 76 18 93/56 95 Room Air 08/13/17 01:00 85 08/13/17 00:50 95 Room Air 08/13/17 00:50 95 Room Air 08/13/17 00:33 36.7 88 24 119/85 96 Room Air Physical Exam VITALS: Vitals are noted on the nurse's note and reviewed by myself. Vital signs stable. GENERAL: White female tearful, in no acute distress, nondiaphoretic, well- developed well-nourished. SKIN: The skin was without rashes, erythema, edema, or bruising. There is no tenting of the skin. Capillary reflex less than 2 seconds. HEAD: Normocephalic atraumatic. EARS: External auditory canals clear, tympanic membranes pearly [place] without erythema or effusion bilaterally. EYES: Pupils equal round and reactive to light and accommodation. Conjunctivae without injection, sclerae without icterus. Extraocular movements intact. NOSE: Patent, turbinates without inflammation or discharge. MOUTH: Mucous membranes moist. Pharynx without erythema or exudate. Uvula midline. Airway patent. Tongue does not deviate. NECK: Supple without nuchal rigidity. No lymphadenopathy. No thyromegaly. Cervical spine is nontender. No JVD. HEART: Regular rate and rhythm without murmurs gallops or rubs. LUNGS: Clear to auscultation bilaterally without wheezes, rales or rhonchi. No dullness to percussion. No retractions or accessory muscle use. ABDOMEN: Positive bowel sounds x 4. Normal tympanic percussion. Soft, 19 weeks , nontender, without organomegaly. Pat sign negative. No guarding or rebound tenderness. MUSCULOSKELETAL: No muscle atrophy, erythema, or edema noted. NEURO: Patient was alert and oriented to person place and time. Normal sensation to light and sharp touch. No focal neurological deficits. Medical Decision & Procedures Laboratory Results 08/13/17 00:53 Red Blood Count 4.10, Mean Corpuscular Volume 83.9, Mean Corpuscular Hemoglobin 28.5, Mean Corpuscular Hemoglobin Concent 34.0, Mean Platelet Volume 9.1, Neutrophils (%) (Auto) 61.6, Lymphocytes (%) (Auto) 29.9, Monocytes (%) (Auto) 6.8, Eosinophils (%) (Auto) 1.4, Basophils (%) (Auto) 0.2, Neutrophils # (Auto) 5.38, Lymphocytes # (Auto) 2.61, Monocytes # (Auto) 0.59, Eosinophils # (Auto) 0.12, Basophils # (Auto) 0.02 08/13/17 00:53 Test 08/13/17 00:53 White Blood Count 8.73 K/uL (4.8-10.8) Red Blood Count 4.10 M/uL (4.2-5.4) Hemoglobin 11.7 g/dL (12.0-16.0) Hematocrit 34.4 % (37-47) Mean Corpuscular Volume 83.9 fL (80-100) Mean Corpuscular Hemoglobin 28.5 pg (25-34) Mean Corpuscular Hemoglobin Concent 34.0 g/dl (32-36) Platelet Count 218 K/uL (130-400) Mean Platelet Volume 9.1 fL (7.4-10.4) Neutrophils (%) (Auto) 61.6 % Lymphocytes (%) (Auto) 29.9 % Monocytes (%) (Auto) 6.8 % Eosinophils (%) (Auto) 1.4 % Basophils (%) (Auto) 0.2 % Neutrophils # (Auto) 5.38 K/uL (1.4-6.5) Lymphocytes # (Auto) 2.61 K/uL (1.2-3.4) Monocytes # (Auto) 0.59 K/uL (0.11-0.59) Eosinophils # (Auto) 0.12 K/uL (0-0.5) Basophils # (Auto) 0.02 K/uL (0-0.2) RDW Standard Deviation 39.9 fL (36.4-46.3) RDW Coefficient of Variation 13.3 % (11.5-14.5) Immature Granulocyte % (Auto) 0.1 % Immature Granulocyte # (Auto) 0.01 K/uL (0.00-0.02) Anion Gap 5.0 mmol/L (3-11) Est Creatinine Clear Calc Drug Dose 195.9 ml/min Estimated GFR () > 150.0 Estimated GFR (Non- 134.4 BUN/Creatinine Ratio 24.2 (10-20) Calcium Level 8.5 mg/dl (8.5-10.1) Total Bilirubin 0.2 mg/dl (0.2-1) Direct Bilirubin < 0.1 mg/dl (0-0.2) Aspartate Amino Transf (AST/SGOT) 13 U/L (15-37) Alanine Aminotransferase (ALT/SGPT) 17 U/L (12-78) Alkaline Phosphatase 77 U/L (45-117) Total Protein 7.0 gm/dl (6.4-8.2) Albumin 2.8 gm/dl (3.4-5.0) Medications Administered Medications (Trade) Dose Ordered Sig/Victorina Route Start Time Stop Time Status Last Admin Dose Admin Diphenhydramine HCl (Benadryl Inj) 25 mg NOW STAT IV 08/13/17 00:47 08/13/17 00:49 DC 08/13/17 01:00 25 MG ED Course Prior records/ancillary studies reviewed. Triage Nursing notes reviewed. Additional history obtained from friend The patient's history was concerning for anxiety with chest pain. Differential diagnosis: Etiologies such as anxiety attack, cardiac ischemia, aortic dissection, pulmonary embolism, pneumonia, pneumothorax, musculoskeletal, infections, pericarditis, myocarditis, esophageal rupture, gastrointestinal, as well as others were entertained. Physical examination: As above. ER treatment provided: Benadryl heart tones done by nursing On reassessment the patient felt better. Diagnostic interpretation by me: The electrocardiogram was normal sinus, incomplete right bundle branch block, normal intervals, no acute ST changes, rate of 79. Impression incomplete right bundle branch block interpreted by myself. EKG compared to prior EKG with no acute changes noted. The labs revealed negative troponin Exam and history seem consistent with anxiety after recent argument with her boyfriend. Patient felt much better after being medicated as above. Unremarkable workup as above. She is advised to rest, decrease stress and follow-up with OB or family care in a few days or here in the ER sooner for chest pain, difficulty breathing, worsening signs or symptoms or as needed. By the evaluation outlined above emergent etiologies such as cardiac ischemia, aortic dissection, pulmonary embolism, pneumonia, pneumothorax, infections, pericarditis, myocarditis, gastrointestinal, as well as others were deemed relatively unlikely. The pt informed about the findings as listed above. All questions were answered and pleased with the treatment. Return instructions were outlined and the patient was discharged in stable condition. Referral: The patient was referred back to [facility] and/or primary care physician for follow -up in 2 to 3 days for a recheck of the current condition. Case reviewed with my attending Medical Decision As above Medication Reconcilliation Current Medication List: was personally reviewed by me Blood Pressure Screening Patient's blood pressure: Normal blood pressure Impression Primary Impression: Acute anxiety Departure Information Dispostion Home / Self-Care Condition GOOD Referrals Ravinder Artis M.D. (PCP) Patient Instructions My [facility] Additional Instructions Acetaminophen(Tylenol) may be used for fever or pain. Use 1000mg every six hours as needed. Avoid using more than 3000mg in a 24 hour period. Rest and drink plenty of fluids as tolerated. Decrease stress. Continue current medications. Avoid strenuous activities and anything that worsens your pain. Resume normal activities once your symptoms resolve. Return to the ER immediately for worsening or persistent chest pain, abdominal pain, vomiting, fevers, chest pains, difficulty breathing, worsening of your condition, or as needed. Follow up with your primary physician and [facility] in 2-3 days for a recheck of your current condition.
[2017-08-13 02:34] VITALS: BP 92/52; PULSE 65; O2SAT 98
[2017-08-21] MEDS ORDERED: AZITTAB PO (21:58)
== END 2017-08-13 02:40 | disposition home or self-care (01) ==
LOC: C.EDB 00:31 → C.EDA 02:40
DX: F41.9 Anxiety disorder, unspecified (principal); K21.9 Gastro-esophageal reflux disease without esophagitis; J45.909 Unspecified asthma, uncomplicated; F32.9 Major depressive disorder, single episode, unspecified; F17.200 Nicotine dependence, unspecified, uncomplicated; Z87.440 Personal history of urinary (tract) infections; Z80.9 Family history of malignant neoplasm, unspecified; Z83.3 Family history of diabetes mellitus; Z83.79 Family history of other diseases of the digestive system; Z82.49 Family history of ischemic heart disease and other diseases of the circulatory system; Z84.1 Family history of disorders of kidney and ureter

== ENCOUNTER 2017-10-18 14:31 | Emergency (ER) | payer OTHER ==
[~2017-10-18] VITALS: Ht 154.9 cm; Wt 87.5 kg
[~2017-10-18 14:31] MED LIST changes: -ACET-1256 PO; -PRVHFAIN INH; -VLT500 PO
[2017-10-18 14:44] VITALS: TEMP 36.4; Ht 154.9 cm; Wt 87.5 kg
--- NOTE | 2017-10-18 14:56 | EMERGENCY ROOM VISIT NOTE ---
ED Visit Note First contact with patient: 14:47 CHIEF COMPLAINT: knee pain HISTORY OF PRESENT ILLNESS: This 27-year-old female patient presents to the emergency department ambulatory complaining of pain in the left knee. The patient reports that she fell on ice a few days ago and landed onto both of her knees. She has had persistent pain in the left knee. She states that there was initially some swelling and bruising. It has been difficult for her to walk due to the pain. She rates her discomfort a 10/10. She denies any other injuries. She does report that she is currently , but denies striking her abdomen. She has been taking Tylenol for pain. No numbness or tingling. No previous injuries to this knee. No ankle, foot or hip pain. REVIEW OF SYSTEMS: A 6 system review of systems was completed with positives and pertinent negatives listed in the HPI. ALLERGIES: Bee venom, [place] flavor, strawberry, NKDA MEDICATIONS: See EMR PMH: Asthma SOCIAL HISTORY: The patient lives locally with family. Nonsmoker. PHYSICAL EXAM: Vital Signs: Reviewed Nurse's notes, vital signs stable. GENERAL : This is a 27-year-old female, no acute distress, but appears in pain, well- developed, well-nourished. MENTAL STATUS: Alert, oriented to person place and time, and cooperative. MUSCULOSKELETAL: The with left knee is not swollen. There is no ecchymosis. There is no joint effusion present. The patient is tender in the area of the patella. There is no joint line tenderness. The patella does not subluxate. Range of motion is full. The foot and toes are warm and well-perfused. Dorsalis pedis pulse 2+. Sensation to pain and light touch is intact. Capillary refill less than 2 seconds. RADIOGRAPHIC FINDINGS: LEFT KNEE 3 VIEWS CLINICAL HISTORY: Left knee pain. FINDINGS: AP, crosstable lateral, and sunrise views of the left knee are compared to study dated 03/12/2006. The skeletal structures are well mineralized. No fracture is seen. The joint spaces of the knee are preserved. No joint effusion is identified. The overlying soft tissues are within normal limits. IMPRESSION: Unremarkable radiographic assessment of the left knee. EMERGENCY DEPARTMENT COURSE: I examined the patient. X-rays of the left knee were reviewed by myself and read by radiology and reveal no acute findings. Conservative measures were discussed with the patient. She is able to ambulate. She will follow-up with her primary care provider as needed. She verbalized understanding of my assessment and treatment plan and was discharged home in good condition. DIAGNOSIS: Left knee contusion Problem List Medical Problems: (1) Asthma, Unspecified Status: Chronic (2) Cholecystectomy Status: Resolved Current/Historical Medications Scheduled PRN Acetaminophen (Tylenol), 1,000 MG PO UD PRN for Migraine Albuterol (Ventolin Hfa), 2 PUFFS INH UD PRN for SOB/Wheezing Valacyclovir HCl (Valacyclovir HCl), 500 MG PO UD PRN for Outbreaks Allergies Coded Allergies: [place] Flavor (Verified Allergy, Severe, THROAT SWELLS, 09/15/17) Bee Venom (Verified Allergy, Severe, THROAT SWELLS-SOB, 09/15/17) [place] (Verified Allergy, Severe, THROAT [id number], 09/15/17) Vital Signs Date Time Temp Pulse Resp B/P (MAP) Pulse Ox O2 Delivery O2 Flow Rate FiO2 10/18/17 15:46 78 18 129/79 99 10/18/17 14:44 36.4 89 18 123/81 97 Room Air Departure Information Impression Primary Impression: Contusion of knee, left Dispostion Home / Self-Care Condition GOOD Referrals Ravinder Artis M.D. (PCP) Patient Instructions My [facility] Additional Instructions You have been treated in the Emergency Department for Knee Pain. For pain control, you can use the following [id number] medicines (if >12 yo): - Regular strength (325mg/tab) Tylenol (acetaminophen) 2 tabs every 4-6 hours as needed. Do not exceed 12 tablets in a 24 hour period. Avoid taking more than 4 grams (4000 mg) of Tylenol per day. This includes any other sources of acetaminophen you may take on a regular basis. If this is a recent injury (<24 hrs), ice can be applied to the area of pain for the first 3 days to help decrease pain and inflammation. Ice massages can be performed by freezing water in a paper cup, peeling back the cup to expose the ice and then massaging over the affected area. Elevate the knee to help with pain and swelling. Stay off the feet as much as possible. Return to the Emergency Department if your current symptoms worsen despite treatment course outlined above. Problem Qualifiers Primary Impression: Contusion of knee, left Encounter type: initial encounter Qualified Codes: S80.02XA - Contusion of left knee, initial encounter
--- NOTE | 2017-10-18 15:11 | DIAGNOSTIC IMAGING REPORT ---
LEFT KNEE 3 VIEWS CLINICAL HISTORY: Left knee pain. FINDINGS: AP, crosstable lateral, and sunrise views of the left knee are compared to study dated 03/12/2006. The skeletal structures are well mineralized. No fracture is seen. The joint spaces of the knee are preserved. No joint effusion is identified. The overlying soft tissues are within normal limits. IMPRESSION: Unremarkable radiographic assessment of the left knee. Electronically signed by: Alex Feng M.D. 10/18/2017 3:09 PM Dictated Date/Time: 10/18/2017 3:08 PM
[2017-10-18 15:46] VITALS: BP 129/79; PULSE 78; O2SAT 99
[2017-10-18] MEDS ORDERED: ACET-1256 PO (19:12)
[2017-10-18] MEDS ORDERED: VLT500 PO (19:12)
[2018-03-21] MEDS ORDERED: LRS20 PO (08:25)
[2018-03-21] MEDS ORDERED: METH4PAK PO (08:37)
[2018-04-01] MEDS ORDERED: OXYC-57 PO (13:43)
[2018-05-26] MEDS ORDERED: MELO7.5T5 PO (08:25)
[2018-05-26] MEDS ORDERED: BUSP15TA70 PO (13:59)
[2018-06-10] MEDS ORDERED: ZFRODT/8 PO (08:25)
[2018-06-10] MEDS ORDERED: PRVHFAIN INH (19:12)
== END 2017-10-18 15:47 | disposition home or self-care (01) ==
LOC: C.EDB 14:32 → C.EDD 15:47
DX: S80.02XA Contusion of left knee, initial encounter (principal); W00.9XXA Unspecified fall due to ice and snow, initial encounter; Z33.1 Pregnant state, incidental; Z3A.00 Weeks of gestation of pregnancy not specified; J45.909 Unspecified asthma, uncomplicated

== ENCOUNTER → 2017-10-19 | Outpatient (CLI) | payer OTHER ==
[~2017-10-19] MED LIST changes: +ACET-1256 PO; +AMOX875T PO; +BUSP15TA70 PO; +CLX/20 PO; +CYCL10TA6 PO; +FLX10 PO; +LRS20 PO; +MELO7.5T5 PO; +MELO7.5T6 PO; +METH4PAK PO; +NAPR250T77 PO; +NORT10CA PO; +NRN100 PO; +ONDA-170 PO; +OXYC-57 PO; +PRED50TA PO; +PRVHFAIN INH; +RANI300T PO; +TRAM-10 PO; +TRAZ50TA35 PO; +VLT500 PO; +ZFRODT/8 PO; -ZFRODT/8 SL
[2017-10-19 14:36] LABS: HEMATOCRIT 35.7 % (37-47); HEMOGLOBIN 11.9 g/dL (12.0-16.0)
== END | disposition home or self-care (01) ==
LOC: C.LAB1850 12:10
PROVIDERS: ATTEND Obstetrics & Gynecology
DX: Z34.83 Encounter for supervision of other normal pregnancy, third trimester (principal)

== ENCOUNTER 2017-10-21 17:59 | Emergency (ER) | payer OTHER ==
[~2017-10-21] VITALS: Ht 154.9 cm; Wt 95.0 kg
[~2017-10-21 17:59] MED LIST changes: -AMOX875T PO; -BUSP15TA70 PO; -CLX/20 PO; -CYCL10TA6 PO; -FLX10 PO; -LRS20 PO; -MELO7.5T5 PO; -MELO7.5T6 PO; -METH4PAK PO; -NAPR250T77 PO; -NORT10CA PO; -NRN100 PO; -ONDA-170 PO; -OXYC-57 PO; -PRED50TA PO; -RANI300T PO; -TRAM-10 PO; -TRAZ50TA35 PO; -ZFRODT/8 PO
[2017-10-21 18:08] VITALS: TEMP 36.3; Ht 154.9 cm; Wt 95.0 kg
[2017-10-21] MEDS ORDERED: ACETAMINOPHEN 500 MG TAB PO STA (18:21)
--- NOTE | 2017-10-21 19:21 | EMERGENCY ROOM VISIT NOTE ---
History First contact with patient: 18:15 Chief Complaint: BACK PAIN Stated Complaint: LOWER BACK/TAILBONE PAIN, 29 WKS History of Present Illness The patient is a 27 year old female who presents to the Emergency Room with complaints of "low back pain/tailbone pain, 29 weeks ". The patient states that she is 20 weeks , and yesterday at night around 9:30 PM developed low back pain centrally. She notes it radiates down the legs and upper back. It is worse with movement. She rates her overall pain as a 10/10. She states that at this time she notes no vaginal bleeding, fevers, chills, lower extremity weakness, bowel or bladder incontinence, numbness or tingling in genital region, vaginal bleeding, abdominal pain or cramping. She last had Tylenol at 2 PM. Review of Systems A complete 10-point Review of Systems was discussed with the patient, with pertinent positives and negatives listed in the History of Present Illness. All remaining Review of Systems questions can be considered negative unless otherwise specified. Past Medical/Surgical History Medical Problems: (1) Anxiety State Nos (2) Asthma, Unspecified (3) Cholecystectomy (4) Depressive Disorder Nec (5) Esophageal Reflux (6) Lumbago (7) Obesity, Nos (8) 25 weeks 3 days (9) related abdominal pain of lower quadrant, antepartum (10) Pyelonephritis Nos (11) Tobacco Use Disorder (12) Toxemia of (13) Uterine contractions at greater than 20 weeks of gestation Family History Cancer Diabetes mellitus FHx: gallbladder disease Heart disease Hypertension Kidney disease Kidney stones Lung disease Social History Smoking Status: Never Smoker Alcohol Use: none Drug Use: none Marital Status: Housing Status: lives with family Occupation Status: employed Current/Historical Medications Scheduled PRN Acetaminophen (Tylenol), 1,000 MG PO UD PRN for Migraine Albuterol (Ventolin Hfa), 2 PUFFS INH UD PRN for SOB/Wheezing Ondansetron Hcl (Zofran), 8 MG PO for Nausea Valacyclovir HCl (Valacyclovir HCl), 500 MG PO UD PRN for Outbreaks Physical Exam Vital Signs Date Time Temp Pulse Resp B/P (MAP) Pulse Ox O2 Delivery O2 Flow Rate FiO2 10/21/17 19:24 86 16 117/86 98 10/21/17 19:12 86 16 117/86 98 10/21/17 18:08 36.3 101 16 113/75 98 Room Air Physical Exam VITAL SIGNS - Vital signs and nursing notes were reviewed. Stable. Afebrile. Tachycardic. GENERAL -27-year-old female appearing her stated age who is in no acute distress. Communicates well with provider and answers questions appropriately. SKIN - Without rashes. No petechial rashes. HEAD - NC/AT. EYES - Sclera anicteric. EARS - No deformities of external structures noted on gross examination bilaterally. NOSE - Midline and without cyanosis. No epistaxis or purulent drainage noted. MOUTH/OROPHARYNX - Without perioral cyanosis. NECK - Neck with FROM. Supple to palpation. LUNGS - Chest wall symmetric without accessory muscle use, intercostals retractions, or central cyanosis. Normal vesicular breath sounds CTA B/L. No wheezes, rales, or rhonchi appreciated. CARDIAC - RRR with S1/S2. No murmur, rubs, or gallops appreciated. ABDOMEN - Abdominal contour with evidence of gestation without pulsations or visible masses. BS normoactive all four quadrants. No tenderness, palpable masses, hepatosplenomegaly, or ascites noted. EXTREMITIES - No clubbing or peripheral cyanosis. No pretibial edema present.+5/ 5 strength noted in UE/LE bilaterally. MUSCULOSKELETAL: Tenderness overlying the inferior lumbar processes. NEUROLOGIC - Cranial nerves II through XII grossly intact. Sensory intact to light touch throughout. Patellar reflexes +2/4. Neurovascularly intact in the lower extremity. PSYCH - A&O, and cooperates fully with examiner. Pt is very pleasant and interacts well with examiner. Medical Decision & Procedures Medications Administered Medications (Trade) Dose Ordered Sig/Victorina Route Start Time Stop Time Status Last Admin Dose Admin Acetaminophen (Tylenol Tab) 500 mg NOW STAT PO 10/21/17 18:21 10/21/17 18:23 DC 10/21/17 18:48 500 MG Medical Decision Patient was seen and evaluated as above. She presents to us today with low back pain that radiates down her legs. I suspect that with her posturing for the gestation she likely is experiencing radiculopathy from a bulging disc. There is no evidence of neurovascular compromise on exam. There has been no fall or trauma. She was given Tylenol here for pain. There is no vaginal bleeding, cramping emergent process noted. She will then be sent upstairs to labor and delivery for further evaluation and management. Patient was educated upon management, educated upon worrisome symptoms which to return, had questions and provided discharge, and was discharged home in good condition. Impression Primary Impression: Low back pain Departure Information Dispostion Home / Self-Care Condition GOOD Referrals Ravinder Artis M.D. (PCP) Patient Instructions My [facility] Additional Instructions You were seen in the emergency department for low back pain. At this time we will be discharging you from the emergency department to please go directly to labor and delivery for evaluation by them. Please return with any new/concerning symptoms.
[2017-10-21 19:24] VITALS: BP 117/86; PULSE 86; O2SAT 98
[2017-10-21] MEDS ORDERED: ONDA8TAB6 PO (19:51)
== END 2017-10-21 19:24 | disposition home or self-care (01) ==
LOC: C.EDB 18:00 → C.EDD 19:24
DX: M54.5 Low back pain (principal); F41.9 Anxiety disorder, unspecified; K21.9 Gastro-esophageal reflux disease without esophagitis; J45.909 Unspecified asthma, uncomplicated; F32.9 Major depressive disorder, single episode, unspecified; F17.200 Nicotine dependence, unspecified, uncomplicated; Z87.440 Personal history of urinary (tract) infections; Z79.899 Other long term (current) drug therapy; Z80.9 Family history of malignant neoplasm, unspecified; Z83.3 Family history of diabetes mellitus; Z83.79 Family history of other diseases of the digestive system; Z82.49 Family history of ischemic heart disease and other diseases of the circulatory system; Z84.1 Family history of disorders of kidney and ureter

== ENCOUNTER 2017-10-21 19:32 | Outpatient (CLI) | payer OTHER ==
[~2017-10-21] VITALS: Ht 157.5 cm; Wt 95.0 kg
[~2017-10-21 19:32] MED LIST changes: -PRVHFAIN INH
[2017-10-21 19:51] VITALS: Ht 157.5 cm; Wt 95.0 kg
[2017-10-21] MEDS ORDERED: ONDA-170 PO (19:51)
[2018-03-21] MEDS ORDERED: LRS20 PO (08:25)
[2018-03-21] MEDS ORDERED: METH4PAK PO (08:37)
[2018-04-01] MEDS ORDERED: OXYC-57 PO (13:43)
[2018-05-26] MEDS ORDERED: MELO7.5T5 PO (08:25)
[2018-05-26] MEDS ORDERED: BUSP15TA70 PO (13:59)
[2018-06-10] MEDS ORDERED: ZFRODT/8 PO (08:25)
[2018-06-10] MEDS ORDERED: PRVHFAIN INH (19:12)
== END 2017-10-21 20:18 | disposition home or self-care (01) ==
LOC: C.OPB 19:32 → C.LD 19:32 → C.OPB 20:18
PROVIDERS: ATTEND Obstetrics & Gynecology
DX: O99.89 Other specified diseases and conditions complicating pregnancy, childbirth and the puerperium (principal); M53.3 Sacrococcygeal disorders, not elsewhere classified; Z3A.00 Weeks of gestation of pregnancy not specified

== ENCOUNTER 2017-11-08 10:28 | Emergency (ER) | payer OTHER ==
[~2017-11-08] VITALS: Ht 154.9 cm; Wt 97.7 kg
[~2017-11-08 10:28] MED LIST changes: +ONDA8TAB6 PO; +PRVHFAIN INH
[2017-11-08 10:32] VITALS: TEMP 36.5; Ht 154.9 cm; Wt 97.7 kg
[2017-11-08 12:09] LABS: INFLUENZA B ANTIGEN Neg for Influ B (NEG)
[2017-11-08] MEDS ORDERED: AMOX875T PO (12:15)
--- NOTE | 2017-11-08 12:16 | EMERGENCY ROOM VISIT NOTE ---
History First contact with patient: 11:13 Chief Complaint: ILLNESS Stated Complaint: CP, SOB, DIZZY, NAUSEA, 31WEEKS History of Present Illness The patient is a 27 year old female who is 31 weeks presents to the Emergency Room with complaints of a cough for the past 2 weeks. She states she just feels a little short of breath since last night overnight. She's had productive green sputum. The patient also admits to head pressure and feeling off balance intermittently. She denies any sore throat. She does admit to intermittent near pain but not at this time. The patient also admits to some nausea in the morning but does not feel nauseated now. The patient admits to feeling achy all over. The patient had the influenza vaccine. The patient denies any chest pain. The patient states she has not looked at the paper that she got from her [employer] for which she can take for cold symptoms. She states she has just been trying to "tough it out". Review of Systems 10 system review was performed and was negative unless stated otherwise history of present illness. Past Medical/Surgical History Medical Problems: (1) Anxiety State Nos (2) Asthma, Unspecified (3) Cholecystectomy (4) Coccyx pain (5) Depressive Disorder Nec (6) Esophageal Reflux (7) Lumbago (8) Obesity, Nos (9) 25 weeks 3 days (10) related abdominal pain of lower quadrant, antepartum (11) Pyelonephritis Nos (12) Tobacco Use Disorder (13) Toxemia of (14) Uterine contractions at greater than 20 weeks of gestation Family History Cancer Diabetes mellitus FHx: gallbladder disease Heart disease Hypertension Kidney disease Kidney stones Lung disease Social History Smoking Status: Never Smoker Alcohol Use: none Drug Use: none Marital Status: Housing Status: lives with family Occupation Status: employed Current/Historical Medications Scheduled PRN Acetaminophen (Tylenol), 1,000 MG PO UD PRN for Migraine Albuterol (Ventolin Hfa), 2 PUFFS INH UD PRN for SOB/Wheezing Ondansetron Hcl (Zofran), 8 MG PO UD PRN for Nausea Valacyclovir HCl (Valacyclovir HCl), 500 MG PO UD PRN for Outbreaks Physical Exam Vital Signs Date Time Temp Pulse Resp B/P (MAP) Pulse Ox O2 Delivery O2 Flow Rate FiO2 11/08/17 10:32 36.5 100 18 120/80 97 Room Air Physical Exam PHYSICAL EXAM: Vital Signs were reviewed: Temperature 36.5, blood pressure 120/ 80, pulse 100, respiratory rate 18 Reviewed Nurse's notes and agree. Oxygen saturation is 97 % on room air which is normal . GENERAL: 27-year-old 31 week female appears in no acute distress. MENTAL STATUS: Alert, oriented, coherent. EARS: Canals clear. TMs good light reflex, no erythema or fluid level noted. NOSE: Nasal mucosa with moderate erythema engorgement. Left greater than right. PHARYNX: No erythema, no edema noted. No exudate noted. Airway is adequate. NECK: Supple, non-tender. No lymphadenopathy noted. LUNGS: Clear to auscultation without wheezes rales or rhonchi. CARDIAC: Regular rate and rhythm without murmur. SKIN: No rashes noted. Medical Decision & Procedures Laboratory Results Test 11/08/17 11:34 Influenza Type A Antigen Neg for Influ A (NEG) Influenza Type B Antigen Neg for Influ B (NEG) ED Course The patient was evaluated. The patient did not have any fever or any acute respiratory distress therefore chest x-ray or labs are not warranted at this time. Influenza was negative for influenza A and influenza B. The patient was discharged home in stable condition. Medical Decision Differential diagnosis include acute sinusitis, acute bronchitis, pneumonia, influenza [place] Drug Monitoring Program Search Results: patient reviewed within database Medication Reconcilliation Current Medication List: was personally reviewed by [place] Blood Pressure Screening Patient's blood pressure: Normal blood pressure Impression Primary Impression: Acute bronchitis Departure Information Dispostion Home / Self-Care Condition GOOD Prescriptions Amoxicillin & Pot Clavulanate (Augmentin 875-125 mg) 1 Tab Tab 1 TAB PO BID for 10 Days, #20 TAB Prov: Tova Perla PA-C 11/08/17 Referrals Ravinder Artis M.D. (PCP) Forms HOME CARE DOCUMENTATION FORM, IMPORTANT VISIT INFORMATION, WORK / SCHOOL INSTRUCTIONS Patient Instructions Bronchitis Acute, My [employer] Additional Instructions Take Augmentin as prescribed. Tylenol as needed for fever and pain. Push fluids. Contact her [employer] to see what [id number] symptomatic treatment you are allowed to take since you are . If symptoms persist or worsen, follow-up with your family doctor. Problem Qualifiers Primary Impression: Acute bronchitis Bronchitis organism: unspecified organism Qualified Codes: J20.9 - Acute bronchitis, unspecified
[2017-11-08 12:21] VITALS: BP 117/67; PULSE 88; O2SAT 98
== END 2017-11-08 12:22 | disposition home or self-care (01) ==
LOC: C.EDB 10:30
DX: J20.9 Acute bronchitis, unspecified (principal); O99.513 Diseases of the respiratory system complicating pregnancy, third trimester; Z3A.31 31 weeks gestation of pregnancy; F41.9 Anxiety disorder, unspecified; J45.909 Unspecified asthma, uncomplicated; F32.9 Major depressive disorder, single episode, unspecified; K21.9 Gastro-esophageal reflux disease without esophagitis; E66.9 Obesity, unspecified; Z80.9 Family history of malignant neoplasm, unspecified; Z83.3 Family history of diabetes mellitus; Z83.79 Family history of other diseases of the digestive system; Z82.49 Family history of ischemic heart disease and other diseases of the circulatory system; Z84.1 Family history of disorders of kidney and ureter; Z83.6 Family history of other diseases of the respiratory system

== ENCOUNTER 2017-12-09 10:25 | Outpatient (CLI) | payer OTHER | END 2017-12-09 12:45 | disposition home or self-care (01) | LOC: C.OPB 10:25 → C.LD 10:26 → C.OPB 12:45 | PROVIDERS: ATTEND Obstetrics & Gynecology | DX: O26.893 Other specified pregnancy related conditions, third trimester (principal); R10.2 Pelvic and perineal pain; O62.9 Abnormality of forces of labor, unspecified; O99.343 Other mental disorders complicating pregnancy, third trimester; F32.9 Major depressive disorder, single episode, unspecified; Z3A.35 35 weeks gestation of pregnancy; Z90.49 Acquired absence of other specified parts of digestive tract ==

== ENCOUNTER 2017-12-12 14:53 | Outpatient (CLI) | payer OTHER ==
[~2017-12-12] VITALS: Ht 157.5 cm; Wt 97.7 kg
[2017-12-12 17:06] VITALS: Ht 157.5 cm; Wt 97.7 kg
== END 2017-12-12 17:35 | disposition home or self-care (01) ==
LOC: C.LD 14:53 → C.OPB 14:53
PROVIDERS: ATTEND Obstetrics & Gynecology
DX: O62.9 Abnormality of forces of labor, unspecified (principal); Z3A.00 Weeks of gestation of pregnancy not specified

== ENCOUNTER → 2017-12-14 | Outpatient (CLI) | payer OTHER | END | disposition home or self-care (01) | LOC: C.LABSPEC 14:12 | PROVIDERS: ATTEND Obstetrics & Gynecology | DX: Z34.83 Encounter for supervision of other normal pregnancy, third trimester (principal) ==

== ENCOUNTER 2017-12-23 10:08 | Outpatient (CLI) | payer OTHER ==
[~2017-12-23] VITALS: Ht 165.1 cm; Wt 99.5 kg
[~2017-12-23 10:08] MED LIST changes: +ONDA-170 PO; -ONDA8TAB6 PO
[2017-12-23 11:07] VITALS: Ht 165.1 cm; Wt 99.5 kg
== END 2017-12-23 11:35 | disposition home or self-care (01) ==
LOC: C.OPB 10:08 → C.LD 10:09 → C.OPB 11:35
PROVIDERS: ATTEND Obstetrics & Gynecology
DX: Z34.83 Encounter for supervision of other normal pregnancy, third trimester (principal)

== ENCOUNTER 2017-12-29 09:30 | Outpatient (CLI) | payer OTHER | END 2017-12-29 10:30 | disposition home or self-care (01) | LOC: C.OPB 09:30 → C.LD 09:31 → C.OPB 10:30 | PROVIDERS: ATTEND Obstetrics & Gynecology | DX: Z34.83 Encounter for supervision of other normal pregnancy, third trimester (principal) ==

== ENCOUNTER 2018-01-04 20:10 | Inpatient (IN) | payer OTHER ==
[~2018-01-04] VITALS: Ht 157.5 cm; Wt 102.5 kg
[2018-01-04 22:35] VITALS: Ht 157.5 cm; Wt 102.5 kg
[2018-01-04] MEDS ORDERED: LACTATED RINGER'S 1000ML 1,000 ML IV SCH (22:48)
[2018-01-04] MEDS ORDERED: LACTATED RINGER'S 1000ML 1,000 ML IV PRN (22:48)
[2018-01-04 23:19] LABS: HEMATOCRIT 36.9 % (37-47); HEMOGLOBIN 11.7 g/dL (12.0-16.0); MEAN CELL VOLUME 79.4 fL (80-100); MEAN CORPUSCULAR HEMOGLOBIN 25.2 pg (25-34); MEAN CORPUSCULAR HGB CONC 31.7 g/dl (32-36); MEAN PLATELET VOLUME 8.7 fL (7.4-10.4); PLATELET COUNT 215 K/uL (130-400); RED CELL DISTRIBUTION WIDTH CV 14.4 % (11.5-14.5); RED CELL DISTRIBUTION WIDTH SD 40.9 fL (36.4-46.3); WHITE BLOOD COUNT 10.73 K/uL (4.8-10.8)
[2018-01-04] MEDS ORDERED: CALCIUM CARBONATE 500 MG CHEWABLE PO PRN (23:30)
[2018-01-04] MEDS ORDERED: BUPIVACAINE 0.25% 30 ML VIAL ONE (23:57)
[2018-01-04] MEDS ORDERED: EpHEDrine SULFATE INJ 50 MG/ML AMP ONE (23:57)
[2018-01-04] MEDS ORDERED: FENTANYL CITRATE INJ 50 MCG/1 ML 2 ML VIAL ONE (23:57)
[2018-01-04] MEDS ORDERED: FENTANYL 2MCG/ML ROPIV 1.25MG/ML 100ML BAG EPI ONE (23:58)
[2018-01-05] MEDS ORDERED: NALOXONE HCL INJ 1 MG in SODIUM CHLORIDE 0.9% 1000ML 1,000 ML IV PRN (00:50)
[2018-01-05] MEDS ORDERED: LACTATED RINGER'S 1000ML 500 ML IV PRN (00:50)
[2018-01-05] MEDS ORDERED: NALOXONE HCL INJ 0.4 MG/1 ML VIAL/CARP IV PRN (01:00)
[2018-01-05] MEDS ORDERED: ONDANSETRON INJ 2 MG/ML 2 ML VIAL IV PRN (01:00)
[2018-01-05] MEDS ORDERED: FENTANYL 2MCG/ML ROPIV 1.25MG/ML 100ML BAG EPI PRN (01:00)
[2018-01-05] MEDS ORDERED: EpHEDrine SULFATE INJ 50 MG/ML AMP IV PRN (01:00)
[2018-01-05] MEDS ORDERED: DiphenhydrAMINE HCL 50 MG/ML VIAL IV PRN (01:00)
[2018-01-05] MEDS ORDERED: NALBUPHINE HCL INJ 10 MG/ML AMP IV PRN (01:00)
[2018-01-05] MEDS ORDERED: OXYTOCIN 30 UNITS/500ML NSS IV ONE (01:03)
[2018-01-05] MEDS ORDERED: OXYTOCIN 30 UNITS/500ML NSS IV PRN (01:30)
[2018-01-05] MEDS ORDERED: DIPHTHERIA/TETANUS/PERTUSSIS 0.5 ML SYR/VIAL IM. ONE (01:30)
[2018-01-05] MEDS ORDERED: ACETAMINOPHEN 325 MG TAB PO PRN (01:30)
[2018-01-05] MEDS ORDERED: BENZOCAINE 20% AER SPR 82.5 GM CAN EXT PRN (01:30)
[2018-01-05] MEDS ORDERED: SUPERCREAM 0.870 % 15GM JAR EXT PRN (01:30)
[2018-01-05] MEDS ORDERED: OXYCODONE/ACETAMINOPHEN 5-325 TAB PO PRN (01:30)
[2018-01-05] MEDS ORDERED: HYDROCORTISONE ACETATE 25 MG SUPP PR PRN (01:30)
[2018-01-05] MEDS ORDERED: LANOLIN OINT EXT PRN (01:30)
--- NOTE | 2018-01-05 02:01 | DELIVERY SUMMARY ---
DATE OF OPERATION: 01/05/2018 PREOPERATIVE DIAGNOSES: 1. Intrauterine at 39 and 5/7 weeks. 2. Active labor. POSTOPERATIVE DIAGNOSES: Same. PROCEDURE: 1. Epidural anesthesia. 2. Amniotomy. 3. Normal spontaneous vaginal delivery. 4. First degree vaginal laceration with repair. SURGEON: Rahel Garcia MD. ANESTHESIA: Epidural. ESTIMATED BLOOD LOSS: 350 mL. DESCRIPTION OF THE PROCEDURE: The patient presented to labor and delivery for a 90 changed to 5 and 90 and was admitted. She underwent an epidural anesthetic and was mariola quite frequently after that. I was called to the room because the baby had a deceleration to the 70s. She was checked and found to be complete complete and 0 station and amniotomy was performed for clear fluid. She was then instructed in pushing and pushed with good effort. During the course of pushing, the heart rate returned back to the 120s and she pushed effectively to deliver a viable male in KIRK presentation. There was a tight nuchal cord that was clamped and cut on the perineum and the rest of the baby was then delivered without difficulty. The nose and mouth were bulb suctioned. The was placed on the maternal abdomen for drying and attention. Cord blood and gasses were obtained. Placenta was delivered spontaneously intact with a 3-vessel cord. Cervix, sulci and rectum were examined and found to be intact as well. First degree vaginal laceration was repaired with 3-0 Vicryl in normal standard fashion. Hemostasis was obtained with dilute Pitocin and fundal massage. Estimated blood loss was 350. Apgars 5 and 9. The baby did require some resuscitation and attention but perked up very quickly. Please see notes for resuscitation. Mother and baby doing well at the end of the delivery. I attest to the content of the Intraoperative Record and any orders documented therein. Any exception s are noted below.
[2018-01-05 03:40] VITALS: BP 126/85; PULSE 92; TEMP 36.8; O2SAT 97
[2018-01-05] MEDS: IBUPROFEN 600 MG TAB PO PRN ×4 (03:49→20:41)
[2018-01-05 07:30] VITALS: BP 113/79; PULSE 83; TEMP 37.1; O2SAT 96
[2018-01-05] MEDS: PRENATAL VITAMIN TAB PO SCH (08:12)
[2018-01-05] MEDS: DOCUSATE SODIUM 100 MG CAP PO SCH ×2 (08:12→20:41)
--- NOTE | 2018-01-05 08:18 | Anesthesia Procedure Note ---
Anesthesia Epidural Removal Nt Date & Time Jan 05, 2018 at 08:18 Vital Signs Pain Intensity: 3.0 Vital Signs Past 12 Hours Date Time Temp Pulse Resp B/P (MAP) Pulse Ox O2 Delivery O2 Flow Rate FiO2 01/05/18 03:40 36.8 92 18 126/85 (99) 97 Room Air 01/05/18 03:40 97 Room Air Notes Mental Status: alert / awake / arousable, participated in evaluation Nausea / Vomiting: adequately controlled Pain: adequately controlled Airway Patency, RR, SpO2: stable & adequate BP & HR: stable & adequate Hydration State: stable & adequate Neuraxial Anesthesia: was administered, sensory block is resolved Anesthetic Complications: no major complications apparent, pt satisfied with anesthetic care Epidural: removed without complications, with tip intact
[2018-01-05 12:15] VITALS: BP 121/80; PULSE 87; TEMP 36.4; O2SAT 98
[2018-01-05 15:38] VITALS: BP 124/83; PULSE 81; TEMP 37.3; O2SAT 98
[2018-01-05] MEDS ORDERED: CALCIUM CARBONATE 500 MG CHEWABLE PO PRN (16:45)
[2018-01-05 20:25] VITALS: BP 114/79; PULSE 91; TEMP 37.1; O2SAT 97
[2018-01-05 23:45] VITALS: BP 133/85; PULSE 80; TEMP 37.2
[2018-01-06] MEDS: IBUPROFEN 600 MG TAB PO PRN ×4 (01:07→23:51)
[2018-01-06 04:15] VITALS: BP 120/86; PULSE 90; TEMP 36.6
--- NOTE | 2018-01-06 06:37 | Progress Note ---
Subjective Jan 06, 2018. Subjective conversation w/ patient, physical exam Ambulation: ambulating normally Voiding: no voiding problems Passing Gas: Yes Diet Tolerance: Regular Diet Lochia: Small Feeding Type: Bottle Feeding Pain: well controlled, improved with rx Comment: pt seen and assessed at bedside this am; no acute events overnight Review of Systems Constitutional: No fever, No chills Respiratory: No cough, No shortness of breath Cardiac: No chest pain, No edema Abdomen: No pain, No nausea, No vomiting no headaches or calf pain Objective Vital Signs Date Time Temp Pulse Resp B/P (MAP) Pulse Ox O2 Delivery O2 Flow Rate FiO2 01/06/18 04:15 36.6 90 18 120/86 (97) Room Air 01/05/18 23:45 37.2 80 18 133/85 (101) Room Air 01/05/18 23:45 Room Air 01/05/18 20:25 37.1 91 18 114/79 (91) 97 Room Air 01/05/18 15:38 37.3 81 18 124/83 (97) 98 Room Air 01/05/18 15:38 Room Air 01/05/18 12:15 36.4 87 16 121/80 (94) 98 Room Air 01/05/18 07:30 Room Air 01/05/18 07:30 37.1 83 16 113/79 (90) 96 Room Air Physical Exam General Appearance: WELL-APPEARING, WD/WN, NO APPARENT DISTRESS Respiratory/Chest: chest non-tender, lungs clear, normal breath sounds Cardiovascular: regular rate, rhythm, no murmur Abdomen: normal bowel sounds, non tender, soft Fundus: Firm, Non-Tender, Relation to Umbilicus (2-3 below) Extremities: normal range of motion, non-tender, normal inspection, no calf tenderness, + pedal edema (1-2+) Laboratory Results Last 24 Hours Test 01/06/18 04:44 Medications Current Inpatient Medications Medications (Trade) Dose Ordered Sig/Victorina Route Start Time Stop Time Status Last Admin Dose Admin Oxytocin (Pitocin IV) 30 units UD PRN IV 01/05/18 01:30 02/04/18 01:29 01/05/18 02:36 30 UNITS Benzocaine (Dermoplast Aero Spr) 1 appln PRN PRN EXT 01/05/18 01:30 02/04/18 01:29 01/05/18 08:14 1 APPLN Cocaine HCl (Supercream 0.870% Cr) BID PRN EXT 01/05/18 01:30 01/19/18 01:29 Hydrocortisone Acetate (Anusol Hc Supp) 25 mg BID PRN GA 01/05/18 01:30 02/04/18 01:29 Lanolin (Lanolin Oint) PRN PRN EXT 01/05/18 01:30 02/04/18 01:29 Prenat Multivit/ [place]/Iron/Folic Ac ( Vitamin Tab) 1 tab DAILY PO 01/05/18 08:00 02/04/18 07:59 01/05/18 08:12 1 TAB Ibuprofen (Motrin Tab) 600 mg Q4H PRN PO 01/05/18 01:30 02/04/18 01:29 01/06/18 01:07 600 MG Acetaminophen (Tylenol Tab) 650 mg Q6H PRN PO 01/05/18 01:30 02/04/18 01:29 Oxycodone/ Acetaminophen (Percocet 5-325mg Tab) 1 tab Q4H PRN PO 01/05/18 01:30 01/19/18 01:29 Docusate Sodium (coLACE CAP) 100 mg BID PO 01/05/18 08:00 02/04/18 07:59 01/05/18 20:41 100 MG Calcium Carbonate (Tums Chew Tab) 500 mg Q4 PRN PO 01/05/18 16:45 02/04/18 16:44 Assessment and Plan Problem List Medical Problems: (1) Abdominal pain Status: Acute (2) Abdominal pain Status: Acute (3) Acute anxiety Status: Acute (4) Ankle sprain Status: Acute (5) Asthmatic bronchitis Status: Acute (6) Closed head injury Status: Acute (7) Contusion of knee, left Status: Acute (8) Contusion of left foot Status: Acute (9) Dehydration Status: Acute (10) Head injury Status: Acute (11) Hypokalemia Status: Acute (12) Injury of left wrist Status: Acute (13) Intrauterine Status: Acute (14) Left ankle sprain Status: Acute (15) Low back pain Status: Acute (16) Palpitations Status: Acute (17) Pneumonia Status: Acute (18) test negative Status: Acute (19) Right wrist sprain Status: Acute (20) Strain of back Status: Acute (21) Strain, back Status: Acute (22) Syncope Status: Acute (23) Tension headache Status: Acute (24) Viral URI with cough Status: Acute (25) Vomiting Status: Acute Post- Day#: 1 Continue Routine Care: 27 yo F PPD 1 s/p Pt doing well clinically Continue routine care Encourage ambulation Pain control with rx prn Patient would like to stay another night Questions about tubal ligation answered. Resident Physician Supervision Note: I interviewed and examined the patient. Discussed with Dr. Ferrell and agree with findings and plan as documented in the note. Any exceptions or clarifications are listed here: [None] Documented By: Viet Armenta Resident Tracking Resident Involvement: Resident Care Provided Care Provided: OB Delivery
--- NOTE | 2018-01-06 07:07 | Discharge Instructions ---
Discharge Instructions Date of Service Jan 06, 2018. Admission Reason for Admission: Check Labor Discharge Discharge Diagnosis / Problem: s/p Discharge Goals Goal(s): Routine recovery after delivery Medications Continue Dispensed Medications: supercream, dermaplast, tucks, lansinoh Activity Recommendations Activity Limitations: per Instructions/Follow-up section . Instructions / Follow-Up Instructions / Follow-Up ACTIVITY RECOMMENDATIONS: * Gradual return to full activity over the next 2-3 weeks. * No lifting - nothing heavier than baby over the next 2-3 weeks. * Do not engage in vigorous exercise, sexual activity or sports until cleared by your physician. * Do not drive or operate any motorized equipment until cleared by your physician. * You may shower/bathe daily. MEDICATIONS: For discomfort or pain, you may use Acetaminophen (Tylenol), Ibuprofen (Advil), or Naproxen (Aleve) following the package directions. For constipation you may use Colace following the package directions. BREAST CARE: If you are not breast feeding: * Wear a supportive bra 24 hours a day for one to two weeks. * Avoid stimulating your breasts and nipples as much as possible during the first few weeks after delivery. * When taking a shower, have the warm water hit your back, not breasts. * When your breasts feel full, apply ice packs. Usually three to four times a day helps ease the discomfort. * Take a mild pain medication (Tylenol / Motrin) when you are uncomfortable. If breast feeding: * Use breast milk to lubricate nipples. Lansinoh cream may be used for sore nipples. You do not need to remove cream prior to breast feeding. If using a different brand of cream, check the label for directions regarding removal of cream prior to nursing. * Wear a supportive bra. * If having problems with breasts or breast feeding, call a procurement consultant or your health care provider. EPISIOTOMY CARE: After delivery, if you have an episiotomy (stitches), the following steps will ease discomfort and aid healing. * For the first 24 hours after delivery, place ice packs next to your episiotomy to help reduce swelling. * After the first 24 hour-period, sitz baths, either portable or in the tub, are suggested. A shower with a shower arm sprayed over the episiotomy may be comforting. * Abbey care should be done after each voiding and bowel movement. Squirt warm water from a plastic bottle over the perineum (region of the body between the anus and urinary opening) and pat dry. * Use Dermoplast to ease discomfort. Shake container. [place] directly over the episiotomy. Place a Tucks on a clean sanitary pad next to your episiotomy. SPECIAL CARE INSTRUCTIONS: When you are discharged from the hospital, it is important for you to follow the instructions listed below: * During the first week at home, you should be able to care for yourself and your baby. In addition, the usual light household activities are encouraged. * Limit your activities to the way you feel. Do not try to clean the house or move furniture. Be sensible. * If you actively engage in sports and have done so up until the time of your delivery, you may resume these activities as soon as you feel able. This may take up to one month or even longer. Use good judgment. * Continue to take your vitamins for at least six weeks after the of your baby. * Your diet need not be limited unless you were on a special diet before your delivery. Breast-feeding mothers need around 2500 calories per day and at least 64-80 ounces of fluid per day (8 to 10 glasses). * You should eat foods from the four major food groups. Crash diets or fad diets are to be avoided. Eating lean meats, fresh fruits and vegetables, low-fat dairy products, high fiber foods and a regular exercise program, will help you get back to your pre- weight without putting your health at risk. * Constipation is sometimes a problem after delivery. Take a mild laxative as needed. If breast feeding, Milk of Magnesia is acceptable to use. You may use a suppository or Fleets enema if no episiotomy. * A daily shower or tub bath is suggested. Be sure to thoroughly and gently dry the perineum. * A bloody vaginal discharge will usually continue until around four weeks post . A small amount of bleeding may continue for as long as six weeks. Vaginal discharge changes from the bright red bleeding after delivery to pink then brownish and finally yellowish-pink before becoming white and disappearing. * Bleeding may increase with activity. Your first period may come in 4-8 weeks. If you are breast feeding, your period may be delayed even longer. * Nadine (sex) can begin whenever both you and your partner feel comfortable and do not have any form of genital infection. It is recommended that you wait at least six weeks for internal and external healing to occur. If you have questions, please talk to your health care practitioner. A condom should be used to prevent infection and . * Foreplay, gentle intercourse and lubrication is very important the first several times to prevent pain. A water-based lubricant such as K-Y jelly or Astroglide may be used. * If you have RH negative blood and your baby is RH positive, you will receive RHOGAM by injection prior to discharge. The nurse will give you a card to keep with you that has the date and place that you received RHOGAM after delivery. * During your care, you had a Rubella screen done to check for the presence of rubella antibodies in your blood. If your test was negative, you will receive a Rubella vaccine prior to discharge. This vaccine may cause a fever, soreness at the injection site and flu-like symptoms. If these symptoms persist, notify your health care practitioner. is not advised for one month after a Rubella vaccine. * Verbalizes understanding of car seat law as reviewed with patient nursing. * Car Seat hand-out given and reviewed with patient by nursing. * Shaken baby information reviewed with patient by nursing. Call you doctor if: * Heavy bleeding (saturating several pads an hour) or passing clots the size of your fist. * A fever >101 degrees F (38.3 degrees C) on two occasions four hours apart and /or chills. * Unusual pain in the pelvic or vaginal areas. * "Baby Blues" lasting longer than two weeks. If you have any questions or concerns, call your health care practitioner at . FOLLOW UP VISIT: * Please call the office at to schedule a 6 week examination. It is important you keep this appointment. It is important for you to make arrangements for either yearly or twice yearly check-ups thereafter. Current Hospital Diet Patient's current hospital diet: Regular OB Diet Discharge Diet Recommended Diet: Regular OB Diet Pending Studies Studies pending at discharge: no Medical Emergencies . Who to Call and When: Medical Emergencies: If at any time you feel your situation is an emergency, please call 911 immediately. . Non-Emergent Contact Non-Emergency issues call your: Customer Service Clerk . . "Provider Documentation" section prepared by Mariaelena Yousif. .
[2018-01-06 07:52] VITALS: BP 117/80; PULSE 85; TEMP 36.5; O2SAT 98
[2018-01-06 07:55] LABS: HEMATOCRIT 31.2 % (37-47); HEMOGLOBIN 9.9 g/dL (12.0-16.0)
[2018-01-06] MEDS: PRENATAL VITAMIN TAB PO SCH (07:57)
[2018-01-06] MEDS: DOCUSATE SODIUM 100 MG CAP PO SCH ×2 (07:57→20:02)
[2018-01-06 16:15] VITALS: BP 116/79; PULSE 102; TEMP 37.3; O2SAT 99
[2018-01-06 23:20] VITALS: BP 122/83; PULSE 97; TEMP 37.4
--- NOTE | 2018-01-07 05:30 | Progress Note ---
Subjective Jan 07, 2018. Subjective conversation w/ patient, physical exam Ambulation: ambulating normally Voiding: no voiding problems Diet Tolerance: Regular Diet Lochia: Small Feeding Type: Bottle Feeding Pain: no pain issues Objective Vital Signs Date Time Temp Pulse Resp B/P (MAP) Pulse Ox O2 Delivery O2 Flow Rate FiO2 01/06/18 23:20 37.4 97 18 122/83 (96) Room Air 01/06/18 23:20 Room Air 01/06/18 16:15 37.3 102 20 116/79 (91) 99 Room Air 01/06/18 16:15 99 Room Air 01/06/18 07:52 98 Room Air 01/06/18 07:52 36.5 85 18 117/80 (92) 98 Room Air Physical Exam General Appearance: WELL-APPEARING, WD/WN, NO APPARENT DISTRESS Respiratory/Chest: lungs clear Cardiovascular: regular rate, rhythm Abdomen: non tender, soft Fundus: Firm, Relation to Umbilicus (2 down) Extremities: non-tender Laboratory Results Last 24 Hours Test 01/06/18 07:04 Hemoglobin 9.9 g/dL Hematocrit 31.2 % Assessment and Plan Problem List Medical Problems: (1) Abdominal pain Status: Acute (2) Abdominal pain Status: Acute (3) Acute anxiety Status: Acute (4) Ankle sprain Status: Acute (5) Asthmatic bronchitis Status: Acute (6) Closed head injury Status: Acute (7) Contusion of knee, left Status: Acute (8) Contusion of left foot Status: Acute (9) Dehydration Status: Acute (10) Head injury Status: Acute (11) Hypokalemia Status: Acute (12) Injury of left wrist Status: Acute (13) Intrauterine Status: Acute (14) Left ankle sprain Status: Acute (15) Low back pain Status: Acute (16) Palpitations Status: Acute (17) Pneumonia Status: Acute (18) test negative Status: Acute (19) Right wrist sprain Status: Acute (20) Strain of back Status: Acute (21) Strain, back Status: Acute (22) Syncope Status: Acute (23) Tension headache Status: Acute (24) Viral URI with cough Status: Acute (25) Vomiting Status: Acute Post- Day#: 2 Continue Routine Care: stable, d/c home. instructions reviewed. f/u 6 wk pp. bottle feeding. rh pos/ rubella immune.
[2018-01-07] MEDS: DOCUSATE SODIUM 100 MG CAP PO SCH (07:29)
[2018-01-07 07:30] VITALS: BP 123/88; PULSE 85; TEMP 36.7; O2SAT 97
[2018-01-07] MEDS: IBUPROFEN 600 MG TAB PO PRN (07:31)
[2018-01-07] MEDS: PRENATAL VITAMIN TAB PO SCH (07:31)
--- NOTE | 2018-01-07 14:09 | Anesthesiology Progress Note ---
Anesthesia Progress Note Date of Service Jan 07, 2018. Progress Notes Was called by nursing as Ms. Bernal had what appeared to be a significant postdural puncture headache from a labor epidural on 01/05/18. Spoke with the patient and she stated she has been unable to sit upright and gets extreme headache upon going to the bathroom. She had been doing conservative therapy to include fluids with caffeine but she is being discharged today and is worried she will be unable to care for her and two small children at home. After speaking to her at length regarding her treatment options, she felt it was best to undergo epidural blood patch. The procedure risks, hazards and alternatives were discussed with the patient and a proper consent was obtained. The patient was placed in a sitting position in preoperative holding on STD ASA monitors. Skin was prepped and draped in a sterile classical fashion. Excess cleansing solution was removed from the skin. A tourniquet was also placed around the upper arm and the antecubital fossa was prepped and draped in a sterile classical fashion. Local anesthesia was infiltrated subcutaneous and deep at L4-L5. An 18-gauge Tuohy needle was then placed in the epidural space on the first pass utilizing loss of resistance technique with an air filled syringe. 15 cc of autologous blood was withdrawn from the antecubital vein in a sterile fashion. This was then injected into the epidural space in aliquots of 5 cc with negative aspiration prior to each injection. The patient was placed in a recumbent position for another 60 minutes before being allowed to sit up and ambulate. The patient tolerated the procedure well without any apparent difficulties or complications.
[2018-01-07 15:00] VITALS: BP 123/87; PULSE 89; TEMP 37.5; O2SAT 97
[2018-01-07 15:10] VITALS: BP_DIAS 87; PULSE 89; TEMP 37.5
== END 2018-01-07 16:20 | disposition home or self-care (01) | DRG 775 ==
LOC: C.OPB 20:10 → C.LD 20:10 → C.OPB 22:50 → C.OBG 01-05 04:24
PROVIDERS: ADMIT Obstetrics & Gynecology; ATTEND Obstetrics & Gynecology
PROC: 10E0XZZ Delivery of Products of Conception, External Approach (ICD-10-PCS; principal; 2018-01-05)
PROC: 0HQ9XZZ Repair Perineum Skin, External Approach (ICD-10-PCS; principal; 2018-01-05)
DX: O70.0 First degree perineal laceration during delivery (principal); O76 Abnormality in fetal heart rate and rhythm complicating labor and delivery; Z3A.39 39 weeks gestation of pregnancy; Z37.0 Single live birth; O69.81X0 Labor and delivery complicated by cord around neck, without compression, not applicable or unspecified

== ENCOUNTER 2018-01-15 23:45 | Emergency (ER) | payer OTHER ==
[~2018-01-15] VITALS: Ht 154.9 cm; Wt 96.9 kg
[~2018-01-15 23:45] MED LIST changes: -ACET-1256 PO; -VLT500 PO
[2018-01-16 00:01] VITALS: TEMP 36.4; Ht 154.9 cm; Wt 96.9 kg
[2018-01-16] MEDS ORDERED: ACETAMINOPHEN 500 MG TAB PO STA (00:13)
[2018-01-16] MEDS ORDERED: ONDANSETRON HOME PACK 4MG OD TAB PO ONE (00:15)
[2018-01-16] MEDS ORDERED: ONDANSETRON 4MG OD TAB PO ONE (00:15)
[2018-01-16 00:24] VITALS: BP 122/84; PULSE 89; O2SAT 97
--- NOTE | 2018-01-16 06:34 | EMERGENCY ROOM VISIT NOTE ---
History First contact with patient: 00:06 Chief Complaint: HEAD INJURY (MINOR) Stated Complaint: DIZZY,BARRAZA,NAUSEA History of Present Illness The patient is a 27 year old female who presents to the Emergency Room with complaints of headache or feeling lightheaded and nauseous after she hit her head on the windowsill. Patient laid back in the bed and hit her head. She complains of a headache described as throbbing, ranging in severity currently 4 out of 10 to the occipital region. Nothing makes it better or worse. No prior head injuries. Patient denies loss conscious, vomiting, diarrhea, neck stiffness, neck pain, chest pain, dyspnea, localized weakness, tinnitus. She is tolerating p.o. fluids and food. Review of Systems An 10 system review of systems was completed with positives and pertinent negatives listed in the HPI. Past Medical/Surgical History Medical Problems: (1) Anxiety State Nos (2) Asthma, Unspecified (3) Cholecystectomy (4) Coccyx pain (5) Depressive Disorder Nec (6) Esophageal Reflux (7) Labor check (8) Lumbago (9) Normal labor (10) Obesity, Nos (11) 25 weeks 3 days (12) related abdominal pain of lower quadrant, antepartum (13) with 39 completed weeks gestation (14) Pyelonephritis Nos (15) Tobacco Use Disorder (16) Toxemia of (17) Uterine contractions at greater than 20 weeks of gestation Family History Cancer Diabetes mellitus FHx: gallbladder disease Heart disease Hypertension Kidney disease Kidney stones Lung disease Social History Smoking Status: Never Smoker Alcohol Use: none Drug Use: none Marital Status: Housing Status: lives with family Occupation Status: employed Current/Historical Medications Scheduled PRN Albuterol (Ventolin Hfa), 2 PUFFS INH UD PRN for SOB/Wheezing Ondansetron Hcl (Zofran), 8 MG PO UD PRN for Nausea Physical Exam Vital Signs Date Time Temp Pulse Resp B/P (MAP) Pulse Ox O2 Delivery O2 Flow Rate FiO2 01/16/18 00:24 89 20 122/84 97 01/16/18 00:01 36.4 89 20 122/84 97 Room Air Physical Exam VITALS: Vitals are noted on the nurse's note and reviewed by myself. Vital signs stable. GENERAL: Pleasant female, in no acute distress, nondiaphoretic, well-developed well-nourished. SKIN: The skin was without rashes, erythema, edema, or bruising. There is no tenting of the skin. Capillary reflex less than 2 seconds. HEAD: Normocephalic atraumatic. EARS: External auditory canals clear, tympanic membranes pearly [place] without erythema or effusion bilaterally. EYES: Pupils equal round and reactive to light and accommodation. Conjunctivae without injection, sclerae without icterus. Extraocular movements intact. NOSE: Patent, turbinates without inflammation or discharge. No sinus tenderness. MOUTH: Mucous membranes moist. Pharynx without erythema or exudate. Uvula midline. Airway patent. Tongue does not deviate. NECK: Supple without nuchal rigidity. No lymphadenopathy. No thyromegaly. Cervical spine is nontender. No JVD. HEART: Regular rate and rhythm without murmurs gallops or rubs. LUNGS: Clear to auscultation bilaterally without wheezes, rales or rhonchi. No retractions or accessory muscle use. ABDOMEN: Positive bowel sounds x 4. Normal tympanic percussion. Soft, nontender, without masses or organomegaly. Pat sign negative. No guarding or rebound tenderness. No CVA tenderness MUSCULOSKELETAL: No muscle atrophy, erythema, or edema noted. NEURO: Patient was alert and oriented to person place and time. Normal sensation to light and sharp touch. No focal neurological deficits. Cranial nerves II through XII grossly intact. No prior drift. Cerebellar exam intact. Medical Decision & Procedures Medications Administered Medications (Trade) Dose Ordered Sig/Victorina Route Start Time Stop Time Status Last Admin Dose Admin Ondansetron HCl (Zofran Odt) 4 mg ONE ONCE PO 01/16/18 00:15 01/16/18 00:16 DC 01/16/18 00:18 4 MG Ondansetron HCl (ZOFRAN ODT 4MG Home Pack) 1 homepack UD ONCE PO 01/16/18 00:15 01/16/18 00:16 DC 01/16/18 00:18 1 HOMEPACK Acetaminophen (Tylenol Tab) 1,000 mg NOW STAT PO 01/16/18 00:13 01/16/18 00:14 DC 01/16/18 00:19 1,000 MG ED Course Prior records/ancillary studies reviewed. Triage Nursing notes reviewed. Additional history obtained from family. The patient's history was concerning for traumatic head injury Differential diagnosis: Etiologies such as concussion, contusion, fracture, subdural hematoma, epidural hematoma, intraparenchymal hemorrhage, as well as other traumatic pathologies were entertained. Physical examination findings: As above. ER treatment provided: P.o. Tylenol Zofran ODT On reassessment the patient felt better. Diagnostics interpreted by me: Deferred It appears the patient has a mild head injury . I discussed the risks and the benefits of CT scanning. Clinically the patient is doing well and does not appear to have a significant underlying injury. The pt felt comfortable with conservative observation with the understanding if the clinical picture change that imaging may be necessary at a later time. I gave my usual and customary discussion regarding this issue. Patient was advised if symptoms persist to follow-up the concussion clinic here in town or here in the ER sooner for headache, fevers, confusion, lethargy, worsening signs or symptoms or as needed. Patient was neurovascularly and neurologically intact. She is well- appearing. No signs of trauma. By the evaluation outlined above emergent etiologies such as fracture, subdural hematoma, epidural hematoma, intraparenchymal hemorrhage, as well as others were deemed relatively unlikely. The pt informed about the findings as listed above. All questions were answered and pleased with the treatment. Return instructions were outlined and the patient was discharged in stable condition. Outpatient Prescription Management: Zofran Referral: The patient was referred back to their primary care physician for follow-up in 2 to 3 days for a recheck of the current condition. The chart was completed utilizing [employer] Speech voice recognition software. Grammatical errors, random word insertions, pronoun errors, and incomplete sentences are an occassional consequence of this system due to software limitations, ambient noise, and hardware issues. Any formal questions or concerns about the content, text, or information contained within the body of this dictation should be directly addressed to the physician real estate assistant for clarification. Medical Decision As above Head Trauma GCS Score: 15 Medication Reconcilliation Current Medication List: was personally reviewed by me Blood Pressure Screening Patient's blood pressure: Normal blood pressure Impression Primary Impression: Closed head injury Departure Information Dispostion Home / Self-Care Condition GOOD Referrals Ravinder Artis M.D. (PCP) Forms HOME CARE DOCUMENTATION FORM, IMPORTANT VISIT INFORMATION Patient Instructions My [facility], ED Head Injury Closed Additional Instructions Read head injury handout and return for any symptoms. Tylenol 1000 mg as needed for pain (Maximum 3000 mg Tylenol in 24 hr period). Avoid alcohol and contact sports/activities for one week and follow up with family doctor prior to returning to these activities if still symptomatic. Ice and elevate head. If your symptoms persist more than a week then follow up with the concussion clinic. Call [phone]. Return to ER sooner for headache, fevers, confusion, worsening signs or symptoms or as needed. Problem Qualifiers Primary Impression: Closed head injury Encounter type: initial encounter Qualified Codes: S09.90XA - Unspecified injury of head, initial encounter
== END 2018-01-16 00:25 | disposition home or self-care (01) ==
LOC: C.EDB 23:47
DX: S09.90XA Unspecified injury of head, initial encounter (principal); W22.8XXA Striking against or struck by other objects, initial encounter; Y92.003 Bedroom of unspecified non-institutional (private) residence as the place of occurrence of the external cause; F41.9 Anxiety disorder, unspecified; J45.909 Unspecified asthma, uncomplicated; F32.9 Major depressive disorder, single episode, unspecified; K21.9 Gastro-esophageal reflux disease without esophagitis; E66.3 Overweight; F17.200 Nicotine dependence, unspecified, uncomplicated; Z90.49 Acquired absence of other specified parts of digestive tract; Z83.3 Family history of diabetes mellitus; Z82.49 Family history of ischemic heart disease and other diseases of the circulatory system; Z84.1 Family history of disorders of kidney and ureter

== ENCOUNTER 2018-01-17 19:45 | Emergency (ER) | payer OTHER ==
[~2018-01-17] VITALS: Ht 154.9 cm; Wt 97.8 kg
[2018-01-17 19:58] VITALS: Ht 154.9 cm; Wt 97.8 kg
[2018-01-17] MEDS ORDERED: PROCHLORPERAZINE 5 MG/ML 2 ML VIAL IV STA (21:10)
[2018-01-17] MEDS ORDERED: SODIUM CHLORIDE 0.9% 500ML 500 ML IV STA (21:10)
[2018-01-17] MEDS ORDERED: KETOROLAC TROMETHAMINE 30 MG/ML VIAL IV STA (21:10)
[2018-01-17] MEDS ORDERED: DiphenhydrAMINE HCL 50 MG/ML VIAL IV STA (21:10)
--- NOTE | 2018-01-17 22:30 | DIAGNOSTIC IMAGING REPORT ---
CT OF THE HEAD WITHOUT CONTRAST CLINICAL HISTORY: head injury COMPARISON STUDY: Head CT March 12, 2017. CT DOSE: 537.48 mGy.cm TECHNIQUE: Helical axial images of the head were obtained without IV contrast. Automated exposure control was utilized for the study. A dose lowering technique was utilized adhering to the principles of ALARA. FINDINGS: No acute intracranial hemorrhage, midline shift or mass effect is present. Ventricular system is normal. Basilar cisterns are patent. There are no extra axial collections. Osuna-white differentiation is maintained. There is no calvarial fracture. A few locules of gas within the right temporal scalp are venous in location. IMPRESSION: 1. No acute intracranial findings. 2. No calvarial fracture. Electronically signed by: Yimi Huddleston M.D. 01/17/2018 10:29 PM Dictated Date/Time: 01/17/2018 10:27 PM
[2018-01-17 22:55] VITALS: BP 132/89; PULSE 78; TEMP 37; O2SAT 98
--- NOTE | 2018-01-18 15:15 | EMERGENCY ROOM VISIT NOTE ---
History Report prepared by Jaylon: Vince Emerson Under the Supervision of: Dr. Alex Byrnes M.D. First contact with patient: 21:05 Chief Complaint: HEADACHE Stated Complaint: HEADACHE,NECK PAIN,DIZZY History of Present Illness The patient is a 27 year old female who presents to the Emergency Room with complaints of a constant headache beginning yesterday morning. The patient states that she went to lie back two nights ago and hit her head on the window. She notes that she did not lose consciousness but did develop a headache that required her to come to the emergency department last night. She reports that she still has a headache on both sides of her head that is not relieved by Motrin and Tylenol. The patient states that she also has neck soreness and is nauseous. She notes that light bothers her eyes. She rates her pain as an 8/10. She denies any fever and vomiting. She reports that she is not on any blood thinners and that she has a history of migraines. The patient states that her current symptoms do not feel like her typical migraine symptoms. Source of History: patient Onset: yesterday morning Position: head Symptom Intensity: 8/10 Timing: constant Associated Symptoms: + neck pain (soreness), + nausea, No LOC, No fevers, No vomiting Note: The patient states that light bothers her eyes. Review of Systems See HPI for pertinent positives & negatives. A total of 10 systems reviewed and were otherwise negative. Past Medical & Surgical Medical Problems: (1) Anxiety State Nos (2) Asthma, Unspecified (3) Cholecystectomy (4) Coccyx pain (5) Depressive Disorder Nec (6) Esophageal Reflux (7) Labor check (8) Lumbago (9) Migraine (10) Normal labor (11) Obesity, Nos (12) 25 weeks 3 days (13) related abdominal pain of lower quadrant, antepartum (14) with 39 completed weeks gestation (15) Pyelonephritis Nos (16) Tobacco Use Disorder (17) Toxemia of (18) Uterine contractions at greater than 20 weeks of gestation Family History Cancer Diabetes mellitus FHx: gallbladder disease Heart disease Hypertension Kidney disease Kidney stones Lung disease Social History Smoking Status: Never Smoker Alcohol Use: none Drug Use: none Marital Status: Housing Status: lives with family Occupation Status: employed Current/Historical Medications Scheduled PRN Albuterol (Ventolin Hfa), 2 PUFFS INH UD PRN for SOB/Wheezing Ondansetron Hcl (Zofran), 8 MG PO UD PRN for Nausea Allergies Coded Allergies: [place] Flavor (Verified Allergy, Severe, THROAT SWELLS, 01/04/18) Bee Venom (Verified Allergy, Severe, THROAT SWELLS-SOB, 01/04/18) [place] (Verified Allergy, Severe, THROAT [id number], 01/04/18) Physical Exam Vital Signs Date Time Temp Pulse Resp B/P (MAP) Pulse Ox O2 Delivery O2 Flow Rate FiO2 01/17/18 22:55 37.0 78 16 132/89 98 01/17/18 22:37 78 16 132/89 98 Room Air 01/17/18 21:30 82 16 118/80 96 Room Air 01/17/18 19:58 37.0 80 18 129/76 98 Room Air Physical Exam GENERAL: Patient is in no acute distress. HEENT: No acute trauma, normocephalic atraumatic, mucous membranes moist, no nasal congestion, no scleral icterus. NECK: No stridor, no adenopathy, no meningismus, trachea is midline, tenderness to bilateral posterior neck musculature. LUNGS: Clear to auscultation bilaterally, no wheeze, no rhonchi, breath sounds equal. HEART: Without murmurs gallops or rubs, regular rate and rhythm. ABDOMEN: Soft, nontender, bowel sounds positive, no hernias, no peritonitis. EXTREMITIES: No cyanosis or edema, full range of motion of all the joints without pain or difficulty, no signs for acute trauma. NEUROLOGIC: Oriented x 3, no acute motor or sensory deficits, no focal weakness , pupils equal and reactive to light, no cerebellar deficit. SKIN: No rash, no jaundice, no diaphoresis. Medical Decision & Procedures ER Provider Diagnostic Interpretation: Radiology results as stated below per my review and radiologist interpretation: CT OF THE HEAD WITHOUT CONTRAST FINDINGS: No acute intracranial hemorrhage, midline shift or mass effect is present. Ventricular system is normal. Basilar cisterns are patent. There are no extra axial collections. Osuna-white differentiation is maintained. There is no calvarial fracture. A few locules of gas within the right temporal scalp are venous in location. IMPRESSION: 1. No acute intracranial findings. 2. No calvarial fracture. Electronically signed by: Yimi Huddleston M.D. 01/17/2018 10:29 PM Medications Administered Medications (Trade) Dose Ordered Sig/Victorina Route Start Time Stop Time Status Last Admin Dose Admin Sodium Chloride 500 ml @ 999 mls/hr Q31M STAT IV 01/17/18 21:10 01/17/18 21:40 DC 01/17/18 21:29 999 MLS/HR Ketorolac Tromethamine (Toradol Inj) 30 mg NOW STAT IV 01/17/18 21:10 01/17/18 21:13 DC 01/17/18 21:29 30 MG Diphenhydramine HCl (Benadryl Inj) 50 mg NOW STAT IV 01/17/18 21:10 01/17/18 21:13 DC 01/17/18 21:29 50 MG Prochlorperazine Edisylate (Compazine Inj) 10 mg NOW STAT IV 01/17/18 21:10 01/17/18 21:13 DC 01/17/18 21:29 10 MG ED Course 2106: The patient was evaluated in room B7. A complete history and physical exam was performed. 0: Compazine Inj 10mg IV, Benadryl Inj 50mg IV, Toradol Inj 30mg IV, Sodium Chloride 500 ml @ 999 mls/hr IV 4: Reevaluated the patient. Discussed results and discharge instructions: She verbalized understanding and agreement. The patient is ready for discharge. Medical Decision Differential diagnoses include: intracranial bleed, concussion, migraine headache, and failure of outpatient treatment. The patient presents with a diffuse headache. On exam, there are no focal neurologic deficits. She has no signs of meningismus. She is not febrile or toxic. The patient received IV saline, IV Compazine, IV Benadryl and IV Toradol, she feels improved. A brain CT was done, there was no acute bleed or mass-effect. The patient likely has a headache from the head trauma. I suspect she has a migraine on top of the head trauma. She is feeling improved and will be discharged. Her neck pain is very likely musculoskeletal. Patient was encouraged to avoid activity where she may strike her head again, if worsening, she can return. Head Trauma GCS Score: 15 Medication Reconcilliation Current Medication List: was personally reviewed by me Impression Primary Impression: Headache Additional Impression: Head trauma Scribe Attestation The scribe's documentation has been prepared under my direction and personally reviewed by me in its entirety. I confirm that the note above accurately reflects all work, treatment, procedures, and medical decision making performed by me. Departure Information Dispostion Home / Self-Care Referrals Ravinder Artis M.D. (PCP) Forms HOME CARE DOCUMENTATION FORM, IMPORTANT VISIT INFORMATION Patient Instructions My [facility] Additional Instructions rest fluids see mateus gonzalez for a recheck this week otc pain meds as before avoid repeat head injury activities, avoid long periods of tv watching or phone use return if worsening brain CT scan today was ok Problem Qualifiers
== END 2018-01-17 22:53 | disposition home or self-care (01) ==
LOC: C.EDB 19:46
DX: S09.90XA Unspecified injury of head, initial encounter (principal); W22.09XA Striking against other stationary object, initial encounter; M54.2 Cervicalgia; J45.909 Unspecified asthma, uncomplicated; K21.9 Gastro-esophageal reflux disease without esophagitis; E66.9 Obesity, unspecified; Z86.69 Personal history of other diseases of the nervous system and sense organs; Z87.891 Personal history of nicotine dependence; Z91.030 Bee allergy status; Z91.018 Allergy to other foods

== ENCOUNTER 2018-01-31 13:32 | Emergency (ER) | payer OTHER ==
[~2018-01-31] VITALS: Ht 154.9 cm; Wt 99.0 kg
[2018-01-31 13:35] VITALS: TEMP 36.5; Ht 154.9 cm; Wt 99.0 kg
[2018-01-31] MEDS ORDERED: CLX/20 PO (13:59)
[2018-01-31] MEDS ORDERED: TRAZ50TA35 PO (13:59)
[2018-01-31] MEDS ORDERED: BUSP15TA70 PO (13:59)
[2018-01-31] MEDS ORDERED: FLX10 PO (13:59)
[2018-01-31] MEDS ORDERED: KETOROLAC TROMETHAMINE 60 MG/2 ML VIAL IM STA (14:02)
[2018-01-31] MEDS ORDERED: METH4PAK PO (14:05)
[2018-01-31 14:28] VITALS: BP 141/97; PULSE 76; O2SAT 98
--- NOTE | 2018-01-31 15:09 | EMERGENCY ROOM VISIT NOTE ---
History First contact with patient: 13:42 Chief Complaint: BACK PAIN Stated Complaint: LOWER BACK PAIN History of Present Illness The patient is a 27 year old female who presents to the Emergency Room with complaints of lower back pain radiating into bilateral posterior thighs. The patient reports a history of back problems. The patient reports having a baby approximately 1 month ago, and has had worsening symptoms since that time. She did experience some discomfort prior to childbirth. She was recently seen by her PCP and given a prescription for Flexeril. The patient reports no relief with this treatment. She did message her physician logging assistant this morning, but when she did not get a response, she elected to come to the emergency department. The patient denies any recent trauma or falls. She denies any bladder or bowel incontinence, saddle anesthesias or profound lower extremity weakness. Her pain is worsened when sitting for long periods of time, or with any significant movement of the back. She currently rates her discomfort an 8 out of 10. Review of Systems 10 system review was performed and was negative except for pertinent positives and negatives as indicated in history of present illness Past Medical/Surgical History Medical Problems: (1) Anxiety State Nos (2) Asthma, Unspecified (3) Cholecystectomy (4) Coccyx pain (5) Depressive Disorder Nec (6) Esophageal Reflux (7) Labor check (8) Lumbago (9) Migraine (10) Normal labor (11) Obesity, Nos (12) 25 weeks 3 days (13) related abdominal pain of lower quadrant, antepartum (14) with 39 completed weeks gestation (15) Pyelonephritis Nos (16) Tobacco Use Disorder (17) Toxemia of (18) Uterine contractions at greater than 20 weeks of gestation Family History Cancer Diabetes mellitus FHx: gallbladder disease Heart disease Hypertension Kidney disease Kidney stones Lung disease Social History Smoking Status: Never Smoker Alcohol Use: none Drug Use: none Marital Status: Housing Status: lives with family Occupation Status: employed Current/Historical Medications Scheduled Buspirone Hcl (Buspar), 7.5-15 MG PO BID Citalopram (Citalopram Hydrobromide), 20 MG PO DAILY Methylprednisolone (Medrol Dosepak), 0 PO DAILY Trazodone Hcl (Trazodone), 50 MG PO HS Scheduled PRN Albuterol (Ventolin Hfa), 2 PUFFS INH UD PRN for SOB/Wheezing Cyclobenzaprine HCl (Cyclobenzaprine HCl), 10 MG PO HS PRN for Muscle Spasms Physical Exam Vital Signs Date Time Temp Pulse Resp B/P (MAP) Pulse Ox O2 Delivery O2 Flow Rate FiO2 01/31/18 14:28 76 16 141/97 98 01/31/18 13:35 36.5 85 16 133/92 97 Room Air Physical Exam CONSTITUTIONAL: Healthy and well nourished. Alert and oriented X 3 with positive affect. Patient does not appear in any acute distress on exam. HEENT: Normocephalic, atraumatic. Pupils equal, round and reactive. NECK: Full active range of motion without discomfort. RESPIRATORY: Clear to auscultation bilaterally with no wheezing, crackles, rhonchi or stridor. CARDIOVASCULAR: Regular rate and rhythm with no murmurs, rubs or gallops. GASTROINTESTINAL: Bowel sounds present in all quadrants. Soft and nontender to palpation. MUSCULOSKELETAL: Examination shows mild generalized tenderness to palpation through the lower lumbar spine and paraspinous muscles. Negative logroll. Negative sitting straight leg raise. Ankle plantar/dorsiflexion strength is 5 out of 5 and symmetric bilaterally. No antalgic gait with ambulation. INTEGUMENTARY: No rash or other significant dermatologic conditions noted. NEUROLOGIC: No focal neurologic deficits noted. Lower extremities are sensory intact. Medical Decision & Procedures Medications Administered Medications (Trade) Dose Ordered Sig/Victorina Route Start Time Stop Time Status Last Admin Dose Admin Ketorolac Tromethamine (Toradol Inj) 60 mg NOW STAT IM 01/31/18 14:02 01/31/18 14:04 DC 01/31/18 14:19 60 MG ED Course Patient history and physical exam were performed. Nurse's notes were reviewed. Vital signs were reviewed and were normal. I did recommend that I called the patient's PCP for further guidance, given her prior history of chronic back issues, recent and failure of muscle relaxers to help with the pain. The patient reports that she currently is NOT breast-feeding. I discussed the case with Gabriella Schilling PA-C who reports that she has had back x-rays in the past, and so 1 of their physicians last March. They were discussing physical therapy, but the patient then got . They elected to wait until after delivery to perform any further treatment as needed. She suggested that I administer IM Toradol, and possibly provide a short course of corticosteroids. The office will discuss further treatment options with her. This information was relayed to the patient, and she agreed with this treatment course. The patient was administered Toradol 60 mg IM. She will receive a prescription for a Medrol Dosepak. She was encouraged to avoid heavy lifting or sitting for long periods of time. She is welcome to return for any significantly worsening pain, bladder/bowel incontinence, saddle anesthesias or profound lower extremity weakness. The patient was happy with plan of care, voiced understanding of all discharge instructions, and rated her pain a 5 out of 10 at the conclusion of my exam. Medical Decision Patient presents with symptoms consistent with bilateral lumbar radiculitis. Based on history and physical exam findings, I do not suspect conus medullaris or cauda equina syndrome. I do feel that the patient is at low risk for spinal abscess or hematoma. I also do not suspect deep vein thrombosis as her pain is worsened with movement of the back. Medication Reconcilliation Current Medication List: was personally reviewed by me Blood Pressure Screening Patient's blood pressure: Normal blood pressure Impression Primary Impression: Lumbar radiculopathy Departure Information Dispostion Home / Self-Care Prescriptions Methylprednisolone (MEDROL DOSEPAK) 4 Mg Ramón 0 PO DAILY, #1 PKT Prov: Luis Vegas PA 01/31/18 Referrals Ravinder Artis M.D. (PCP) Gabriella Schilling Forms HOME CARE DOCUMENTATION FORM, IMPORTANT VISIT INFORMATION Patient Instructions My [facility] Additional Instructions Try to avoid sitting for long periods of time. Ibuprofen 800 mg and/or Tylenol 1000 mg every 8 hours. You may also alternate these medications for more effective pain relief: Ibuprofen --4 HRS--> Tylenol --4 HRS--> ibuprofen --4 HRS--> Tylenol .... Take Medrol Dosepak as prescribed. Follow-up with your PCP for further management. Return to the emergency department for any developing bladder/bowel incontinence , numbness of the inner thighs/pubic region or profound leg weakness.
== END 2018-01-31 14:27 | disposition home or self-care (01) ==
LOC: C.EDB 13:33 → C.EDD 14:27
DX: M54.5 Low back pain (principal); Z79.899 Other long term (current) drug therapy

== ENCOUNTER → 2018-02-24 | Outpatient (CLI) | payer OTHER ==
[~2018-02-24] MED LIST changes: +BUSP15TA70 PO; +CLX/20 PO; +FLX10 PO; -ONDA-170 PO; +TRAZ50TA35 PO
== END | disposition home or self-care (01) ==
LOC: C.PAPS 13:34
PROVIDERS: ATTEND Obstetrics & Gynecology
DX: Z12.4 Encounter for screening for malignant neoplasm of cervix (principal)

== ENCOUNTER 2018-03-06 21:30 | Emergency (ER) | payer OTHER ==
[~2018-03-06] VITALS: Ht 154.9 cm; Wt 105.5 kg
[2018-03-06 21:36] VITALS: BP 127/87; TEMP 36.7; Ht 154.9 cm; Wt 105.5 kg
--- NOTE | 2018-03-06 21:58 | DIAGNOSTIC IMAGING REPORT ---
RIGHT ANKLE 3 VIEWS HISTORY: right ankle pain, injury COMPARISON: Right ankle 06/04/2016. FINDINGS: There is no fracture or dislocation. Mild soft tissue swelling. No radiopaque foreign bodies. IMPRESSION: No fractures. Electronically signed by: Alvaro Bedolla M.D. 03/06/2018 9:57 PM Dictated Date/Time: 03/06/2018 9:56 PM
--- NOTE | 2018-03-06 22:34 | EMERGENCY ROOM VISIT NOTE ---
History First contact with patient: 21:39 Chief Complaint: ANKLE PAIN Stated Complaint: SWOLLEN RIGHT ANKLE, CAN'T WALK ON IT History of Present Illness The patient is a 27 year old female who presents to the Emergency Room with complaints of a right ankle injury. The patient reports that she has injured her right ankle multiple times over the past 2 days. She states that she injured it once yesterday while walking in her grandmother's yard. She states that today, she stepped back from unloading something from her car and rolled her right ankle. She denies any history of ankle problems. She reports 7/10 pain on the outside of the ankle which is worsened with movement of the ankle or walking. She denies any numbness or weakness. She denies any other injuries. She has not taken any medication for her pain. Review of Systems A complete 6 point review of systems was reviewed with the patient with pertinent positives and negatives as per history of present illness. All else were negative. Past Medical/Surgical History Medical Problems: (1) Anxiety State Nos (2) Asthma, Unspecified (3) Cholecystectomy (4) Coccyx pain (5) Depressive Disorder Nec (6) Esophageal Reflux (7) Labor check (8) Lumbago (9) Migraine (10) Normal labor (11) Obesity, Nos (12) 25 weeks 3 days (13) related abdominal pain of lower quadrant, antepartum (14) with 39 completed weeks gestation (15) Pyelonephritis Nos (16) Tobacco Use Disorder (17) Toxemia of (18) Uterine contractions at greater than 20 weeks of gestation Family History Cancer Diabetes mellitus FHx: gallbladder disease Heart disease Hypertension Kidney disease Kidney stones Lung disease Social History Smoking Status: Never Smoker Alcohol Use: none Drug Use: none Marital Status: Housing Status: lives with family Occupation Status: employed Current/Historical Medications Scheduled Buspirone Hcl (Buspar), 7.5-15 MG PO BID Citalopram (Citalopram Hydrobromide), 20 MG PO QAM Trazodone Hcl (Trazodone), 50 MG PO HS Scheduled PRN Albuterol (Ventolin Hfa), 2 PUFFS INH UD PRN for SOB/Wheezing Cyclobenzaprine HCl (Cyclobenzaprine HCl), 10 MG PO HS PRN for Muscle Spasms Physical Exam Vital Signs Date Time Temp Pulse Resp B/P (MAP) Pulse Ox O2 Delivery O2 Flow Rate FiO2 03/06/18 22:43 100 97 03/06/18 21:36 36.7 77 18 127/87 96 Physical Exam VITALS: Vitals are noted on the nurse's note and reviewed by myself. Vital signs stable. GENERAL: This is a 27-year-old female, in no acute distress, nondiaphoretic, well-developed well-nourished. SKIN: No lacerations or abrasions. MUSCULOSKELETAL: There is minimal soft tissue swelling and tenderness to palpation to the lateral aspect of the right ankle. Full range of motion of the ankle. Patient is able to move all toes. Dorsalis pedis pulse 2+. NEURO: Patient was alert and oriented to person place and time. Distal sensation intact. Medical Decision & Procedures ER Provider Diagnostic Interpretation: RIGHT ANKLE 3 VIEWS HISTORY: right ankle pain, injury COMPARISON: Right ankle 06/04/2016. FINDINGS: There is no fracture or dislocation. Mild soft tissue swelling. No radiopaque foreign bodies. IMPRESSION: No fractures. Medical Decision Differential diagnosis includes fracture, contusion, dislocation, sprain, among others. The patient was evaluated as above. X-ray of the right ankle was obtained and read by radiology with no acute findings. Patient was placed in a gel ankle splint. She already had her own set of crutches. Conservative measures were discussed with the patient. She verbalized understanding of my assessment and treatment plan and was discharged home in good condition. Medication Reconcilliation Current Medication List: was personally reviewed by sd Blood Pressure Screening Patient's blood pressure: Normal blood pressure Impression Primary Impression: Right ankle injury Departure Information Dispostion Home / Self-Care Condition GOOD Referrals No Doctor, Assigned (PCP) Alfonzo Chavez M.D. Patient Instructions My [facility] Additional Instructions You have been treated in the Emergency Department for an Ankle injury. For pain control, you can use the following [id number] medicines (if >12 yo): - Regular strength (325mg/tab) Tylenol (acetaminophen) 2 tabs every 4-6 hours as needed. Do not exceed 12 tablets in a 24 hour period. Avoid taking more than 4 grams (4000 mg) of Tylenol per day. This includes any other sources of acetaminophen you may take on a regular basis. - Regular strength (200 mg/tab) Advil (ibuprofen) 1-2 tabs every 4-6 hours as needed. Do not exceed a dose of 3200 mg per day. If this is a recent injury (<24 hrs), ice can be applied to the area of pain for the first 3 days to help decrease pain and inflammation. You have been provided the number for an Orthopaedic Surgeon. You should call this number as soon as possible to establish a follow-up visit from today's Emergency Department visit. Where the gel ankle splint and use the crutches to aid with walking until you are able to walk without any pain or difficulty. Return to the Emergency Department if your current symptoms worsen despite treatment course outlined above, or if you develop any of the following symptoms : intractable pain despite aforementioned treatment course or new onset of numbness or tingling of the foot. Problem Qualifiers Primary Impression: Right ankle injury Encounter type: initial encounter Qualified Codes: S99.911A - Unspecified injury of right ankle, initial encounter
[2018-03-06 22:43] VITALS: PULSE 100; O2SAT 97
== END 2018-03-06 22:43 | disposition home or self-care (01) ==
LOC: C.EDB 21:31 → C.EDD 22:43
DX: S99.911A Unspecified injury of right ankle, initial encounter (principal); X50.1XXA Overexertion from prolonged static or awkward postures, initial encounter; Y93.01 Activity, walking, marching and hiking; Y93.89 Activity, other specified; Y99.8 Other external cause status; Y92.096 Garden or yard of other non-institutional residence as the place of occurrence of the external cause; F32.9 Major depressive disorder, single episode, unspecified; J45.909 Unspecified asthma, uncomplicated; Z90.49 Acquired absence of other specified parts of digestive tract; Z83.3 Family history of diabetes mellitus; Z82.49 Family history of ischemic heart disease and other diseases of the circulatory system; Z84.1 Family history of disorders of kidney and ureter

== ENCOUNTER 2018-03-09 09:48 | Emergency (ER) | payer OTHER ==
[~2018-03-09] VITALS: Ht 154.9 cm; Wt 100.0 kg
[2018-03-09 10:01] VITALS: TEMP 36.5; Ht 154.9 cm; Wt 100.0 kg
[2018-03-09] MEDS ORDERED: NRN100 PO (10:41)
--- NOTE | 2018-03-09 10:48 | DIAGNOSTIC IMAGING REPORT ---
R KNEE 3 VIEWS CLINICAL HISTORY: Right knee pain. No recent trauma. COMPARISON: Right knee radiographs August 16, 2016. FINDINGS: Alignment of the right knee is anatomic. No fracture or osseous lesion is present. Joint spaces are preserved. No joint effusion is identified. IMPRESSION: Unremarkable right knee radiographs. Electronically signed by: Yimi Huddleston M.D. 03/09/2018 10:47 AM Dictated Date/Time: 03/09/2018 10:46 AM
[2018-03-09] MEDS ORDERED: MELO7.5T6 PO (11:28)
--- NOTE | 2018-03-09 11:28 | EMERGENCY ROOM VISIT NOTE ---
ED Visit Note First contact with patient: 10:44 CHIEF COMPLAINT: right knee pain HISTORY OF PRESENT ILLNESS: This 27 yo female patient presents to the emergency department, ambulatory, complaining of right knee pain which began spontaneously yesterday morning while getting out of bed. The patient denies any known injury. The patient denies any other injuries or pain besides their knee. The patient denies swelling or bruising. There is pain in the posterior aspect of the knee, and radiating around toward the front. They rate the pain as throbbing and 10/10. The patient states they are able to walk on it, however ambulation is difficult and very painful. No numbness or tingling. No previous injuries to this knee. No ankle, foot or hip pain. REVIEW OF SYSTEMS: A 6 system review of systems was completed with positives and pertinent negatives listed in the HPI. ALLERGIES: Bee venom, strawberry, douglass flavor MEDICATIONS: Albuterol, BuSpar, citalopram, gabapentin, trazodone PMH: Asthma, anxiety, depression, pain SOCIAL HISTORY: The patient lives locally with family. She denies drug, alcohol, tobacco use. PHYSICAL EXAM: Vital Signs: Reviewed Nurse's notes, vital signs stable. GENERAL : This is a 27-year-old female, no acute distress, but appears in pain, well- developed, well-nourished. MENTAL STATUS: Alert, oriented to person place and time, and cooperative. MUSCULOSKELETAL: The right knee is not swollen. There is no ecchymosis. There is no joint effusion present. The patient is tender over the entire knee, but worse in the posterior aspect. There is no joint line tenderness. The patella does appropriately subluxate. Range of motion is full. Strength of the quads and hamstrings is 5/5. Tyshawn's is negative. Amando's and Anterior Drawer tests are negative. There is discomfort, but no laxity with varus and valgus stressing. The foot and toes are warm and well-perfused. Dorsalis pedis pulse 2+. Sensation to pain and light touch is intact. Capillary refill less than 2 seconds. RADIOLOGY: R KNEE 3 VIEWS CLINICAL HISTORY: Right knee pain. No recent trauma. COMPARISON: Right knee radiographs August 16, 2016. FINDINGS: Alignment of the right knee is anatomic. No fracture or osseous lesion is present. Joint spaces are preserved. No joint effusion is identified. IMPRESSION: Unremarkable right knee radiographs. Electronically signed by: Yimi Huddleston M.D. 03/09/2018 10:47 AM Dictated Date/Time: 03/09/2018 10:46 AM EMERGENCY DEPARTMENT COURSE: I examined the patient. X-rays of the right knee were reviewed by myself and read by radiology and reveal no acute fractures or bony abnormalities. The patient was placed in a knee immobilizer under my direction and the position was satisfactory. The patient was instructed on the use of crutches, which she already has. The patient was discharged home in good condition. I attest that I have personally reviewed the patient's current medication list. Patient was found to have normal blood pressure on screening and does not require follow-up. Etiologies such as soft tissue injury, fracture, dislocation, neurovascular compromise, compartment syndrome, as well as others were entertained. DIAGNOSIS: Right knee sprain The chart was completed utilizing [employer] Speech voice recognition software. Grammatical errors, random word insertions, pronoun errors, and incomplete sentences are an occasional consequence of this system due to software limitations, ambient noise, and hardware issues. Any formal questions or concerns about the content, text, or information contained within the body of this dictation should be directly addressed to the provider for clarification. Problem List Medical Problems: (1) Asthma, Unspecified Status: Chronic (2) Cholecystectomy Status: Resolved Current/Historical Medications Scheduled Buspirone Hcl (Buspar), 7.5-15 MG PO BID Citalopram (Citalopram Hydrobromide), 20 MG PO QAM Gabapentin (Gabapentin), 100 MG PO HS Trazodone Hcl (Trazodone), 50 MG PO HS Scheduled PRN Albuterol (Ventolin Hfa), 2 PUFFS INH UD PRN for SOB/Wheezing Meloxicam (Mobic), 1 TAB PO BID PRN for Pain Allergies Coded Allergies: Douglass Flavor (Verified Allergy, Severe, THROAT SWELLS, 03/02/18) Bee Venom (Verified Allergy, Severe, THROAT SWELLS-SOB, 03/02/18) [place] (Verified Allergy, Severe, THROAT [id number], 03/02/18) NO KNOWN DRUG ALLERGIES (Verified Allergy, Mild, ., 03/02/18) Vital Signs Date Time Temp Pulse Resp B/P (MAP) Pulse Ox O2 Delivery O2 Flow Rate FiO2 03/09/18 10:01 36.5 79 18 126/87 98 Room Air Departure Information Impression Primary Impression: Sprain of knee Dispostion Home / Self-Care Condition GOOD Prescriptions Meloxicam (MOBIC) 7.5 Mg Tab 1 TAB PO BID Y for Pain, #14 TAB Prov: Samanta Fiore PA-C 03/09/18 Referrals Ravinder Artis M.D. (PCP) [facility] Patient Instructions ED Immobilizer Knee, ED Knee Pain [facility], My [facility] Additional Instructions You have been treated in the Emergency Department for Knee Pain. For pain control, you can use the following [id number] medicines (if >12 yo): You were given a prescription for meloxicam to be used as directed. Use 7.5mg every 12 hours as needed. Take with food. Avoid using more than 15mg in a 24 hour period. Do not use 15mg per day for more than three consecutive days without physician direction. Prolonged inappropriate use can lead to stomach upset or ulcers. (AND/OR) Acetaminophen(Tylenol) may be used for fever or pain. Use 1000mg every six hours as needed. Avoid using more than 3000mg in a 24 hour period. If this is a recent injury (<24 hrs), ice can be applied to the area of pain for the first 3 days to help decrease pain and inflammation. Ice massages can be performed by freezing water in a paper cup, peeling back the cup to expose the ice and then massaging over the affected area. You have been provided the number for an Orthopaedic Surgeon. You should call this number as soon as possible to establish a follow-up visit from today's Emergency Department visit. Keep the knee brace in place until cleared by Orthopedics. Use the crutches you have been provided to keep ALL weight off of the knee until weight bearing is tolerable. Return to the Emergency Department if your current symptoms worsen despite treatment course outlined above. Problem Qualifiers Primary Impression: Sprain of knee Encounter type: initial encounter Involved ligament of knee: unspecified ligament Laterality: right Qualified Codes: S83.91XA - Sprain of unspecified site of right knee, initial encounter
[2018-03-09 11:43] VITALS: BP 126/80; PULSE 76; O2SAT 98
== END 2018-03-09 11:45 | disposition home or self-care (01) ==
LOC: C.EDB 09:50 → C.EDD 11:45
DX: S83.91XA Sprain of unspecified site of right knee, initial encounter (principal); X58.XXXA Exposure to other specified factors, initial encounter; Z91.02 Food additives allergy status; Z91.030 Bee allergy status; Z91.018 Allergy to other foods

== ENCOUNTER 2018-05-26 20:51 | Emergency (ER) | payer OTHER ==
[~2018-05-26] VITALS: Ht 154.9 cm; Wt 105.0 kg
[~2018-05-26 20:51] MED LIST changes: -FLX10 PO; +LRS20 PO; +MELO7.5T5 PO; +NRN100 PO; +OXYC-57 PO; +ZFRODT/8 PO
[2018-05-26 20:54] VITALS: TEMP 36.4; Ht 154.9 cm; Wt 105.0 kg
[2018-05-26] MEDS ORDERED: NORT10CA PO (21:36)
[2018-05-26] MEDS ORDERED: RANI300T PO (21:36)
[2018-05-26] MEDS ORDERED: CYCLOBENZAPRINE HCL 10 MG TAB PO STA (21:53)
[2018-05-26] MEDS ORDERED: KETOROLAC TROMETHAMINE 60 MG/2 ML VIAL IM STA (21:53)
[2018-05-26] MEDS ORDERED: NAPR250T77 PO (22:57)
[2018-05-26] MEDS ORDERED: CYCL10TA6 PO (22:57)
--- NOTE | 2018-05-26 22:59 | EMERGENCY ROOM VISIT NOTE ---
History First contact with patient: 21:42 (Malgorzata Humphreys PA-C) First contact with patient: 21:42 (Rory Gambino M.D.) Chief Complaint: BACK PAIN Stated Complaint: LEFT SIDE PAIN, NUMBNESS, TINGLING History of Present Illness The patient is a 28 year old female who presents to the Emergency Room with complaints of low back pain. The patient states that she was standing while at work earlier and began to feel pain in the left lower back. She states that she was not doing anything in particular when her back started hurting, but does stand a lot while at work. She states that the pain radiates from her left lower back down the left leg. She has tingling in the leg. She rates her discomfort at 10/10 and states the pain is a shooting pain. She has not taken anything for her pain. She does report a history of problems with her back but denies any history of surgery. She states her pain is worse when she is bearing weight. She denies numbness, weakness, urinary symptoms, bowel/bladder incontinence or fevers. (Malgorzata Humphreys PA-C) Review of Systems A complete 10 point review of systems was reviewed with the patient with pertinent positives and negatives as per history of present illness. All else were negative. (Malgorzata Humphreys PA-C) Past Medical/Surgical History Medical Problems: (1) Anxiety State Nos (2) Asthma, Unspecified (3) Cholecystectomy (4) Coccyx pain (5) Depressive Disorder Nec (6) Esophageal Reflux (7) Labor check (8) Lumbago (9) Migraine (10) Normal labor (11) Obesity, Nos (12) 25 weeks 3 days (13) related abdominal pain of lower quadrant, antepartum (14) with 39 completed weeks gestation (15) Pyelonephritis Nos (16) Tobacco Use Disorder (17) Toxemia of (18) Uterine contractions at greater than 20 weeks of gestation (Rory Gambino M.D.) Family History Cancer Diabetes mellitus FHx: gallbladder disease Heart disease Hypertension Kidney disease Kidney stones Lung disease (Malgorzata Humphreys PA-C) Cancer Diabetes mellitus FHx: gallbladder disease Heart disease Hypertension Kidney disease Kidney stones Lung disease (Rory Gambino M.D.) Social History Smoking Status: Never Smoker Alcohol Use: none Drug Use: none Marital Status: Housing Status: lives with family Occupation Status: employed (Malgorzata Humphreys PA-C) Current/Historical Medications Scheduled Buspirone Hcl (Buspar), 7.5-15 MG PO BID Cyclobenzaprine Hcl (Flexeril), 10 MG PO TID Meloxicam (Mobic), 7.5 MG PO BID Naproxen (Naprosyn), 250 MG PO BID Nortriptyline Hcl (Pamelor), 10 MG PO HS Ondansetron (Ondansetron Odt), 8 MG PO TID Ranitidine Hcl (Zantac), 300 MG PO HS Scheduled PRN Albuterol (Ventolin Hfa), 2 PUFFS INH UD PRN for SOB/Wheezing Physical Exam Vital Signs Date Time Temp Pulse Resp B/P (MAP) Pulse Ox O2 Delivery O2 Flow Rate FiO2 05/26/18 23:04 89 20 123/88 98 05/26/18 20:54 36.4 103 20 119/87 98 Room Air (Rory Gambino M.D.) Physical Exam VITALS: Vitals are noted on the nurse's note and reviewed by myself. Vital signs stable. GENERAL: This is a 28-year-old female, in no acute distress, nondiaphoretic, well-developed well-nourished. SKIN: The skin was without rashess. MUSCULOSKELETAL: No deformities or atrophy. There is tenderness to palpation to the left lumbar region without tenderness of the lumbar spinous processes. Full range of motion in bilateral lower extremities. Strength 5/5 bilateral legs. NEURO: Patient was alert and oriented to person place and time. Patellar reflexes 2+ bilaterally. (Malgorzata Humphreys ., NAVEEN) Medical Decision & Procedures Medications Administered Medications (Trade) Dose Ordered Sig/[facility] Route Start Time Stop Time Status Last Admin Dose Admin Ketorolac Tromethamine (Toradol Inj) 60 mg NOW STAT IM 05/26/18 21:53 05/26/18 21:54 DC 05/26/18 22:11 60 MG Cyclobenzaprine HCl (Flexeril Tab) 10 mg NOW STAT PO 05/26/18 21:53 05/26/18 21:54 DC 05/26/18 22:11 10 MG (Rory Gambino M.D.) Medical Decision Differential diagnosis includes cauda equina syndrome, cord compression, disc herniation, muscle spasm, lumbar strain, epidural abscess, malignancy, transverse myelitis, urinary tract infection, colitis, diverticulitis, kidney stone, among others. The patient was evaluated as above. She presents with pain in the low back. She was given an IM injection of Toradol and oral Flexeril for her back pain. She reported some relief with this. She will be discharged home on a course of anti-inflammatories and Flexeril. Conservative measures were discussed with the patient. I recommended follow-up with her PCP for any further testing or treatment. She verbalized understanding of my assessment and treatment plan and was discharged home in good condition. (Malgorzata Humphreys PA-C) Medication Reconcilliation Current Medication List: was personally reviewed by me (Malgorzata Humphreys PA-C) Blood Pressure Screening Patient's blood pressure: Normal blood pressure (Malgorzata Humphreys PA-C) Impression Primary Impression: Lumbar back pain Departure Information Dispostion Home / Self-Care Condition GOOD Prescriptions Naproxen (NAPROSYN) 250 Mg Tab 250 MG PO BID for 10 Days, #20 TAB Prov: Malgorzata Humphreys PA-C 05/26/18 Cyclobenzaprine Hcl (FLEXERIL) 10 Mg Tab 10 MG PO TID for 5 Days, #15 TAB Prov: Malgorzata Humphreys PA-C 05/26/18 Referrals Ravinder Artis M.D. (PCP) Patient Instructions My [facility]
[2018-05-26 23:04] VITALS: BP 123/88; PULSE 89; O2SAT 98
== END 2018-05-26 23:05 | disposition home or self-care (01) ==
LOC: C.EDB 20:52 → C.EDD 23:05
DX: M54.5 Low back pain (principal); F41.9 Anxiety disorder, unspecified; J45.909 Unspecified asthma, uncomplicated; Z90.49 Acquired absence of other specified parts of digestive tract; F32.9 Major depressive disorder, single episode, unspecified; K21.9 Gastro-esophageal reflux disease without esophagitis; E66.9 Obesity, unspecified; Z80.9 Family history of malignant neoplasm, unspecified; Z83.3 Family history of diabetes mellitus; Z82.49 Family history of ischemic heart disease and other diseases of the circulatory system; Z84.1 Family history of disorders of kidney and ureter; Z83.6 Family history of other diseases of the respiratory system; Z79.899 Other long term (current) drug therapy

== ENCOUNTER 2018-06-10 20:12 | Emergency (ER) | payer OTHER ==
[~2018-06-10] VITALS: Ht 154.9 cm; Wt 108.9 kg
[~2018-06-10 20:12] MED LIST changes: -CLX/20 PO; -LRS20 PO; +NORT10CA PO; -NRN100 PO; -OXYC-57 PO; -TRAZ50TA35 PO
[2018-06-10 20:16] VITALS: TEMP 36.6; Ht 154.9 cm; Wt 108.9 kg
[2018-06-10] MEDS ORDERED: CYCLOBENZAPRINE HCL 10 MG TAB PO STA (20:55)
[2018-06-10] MEDS ORDERED: DEXAMETHASONE SOD INJ 4 MG/ML VIAL IM STA (20:55)
[2018-06-10] MEDS ORDERED: TRAMADOL HCL 50 MG TAB PO STA (20:55)
[2018-06-10] MEDS ORDERED: KETOROLAC TROMETHAMINE 60 MG/2 ML VIAL IM ONE (21:00)
--- NOTE | 2018-06-10 21:21 | EMERGENCY ROOM VISIT NOTE ---
History First contact with patient: 20:41 Chief Complaint: HIP PAIN Stated Complaint: L LEG PAIN History of Present Illness The patient is a 28 year old female who presents to the Emergency Room with complaints of left lower back pain radiating down the back of her left leg that started when the patient was at work earlier today. She denies any injury. No numbness, tingling or weakness in her extremities. No difficulty with urination. The patient has tried Tylenol and ibuprofen with minimal relief of her symptoms. She denies any fever or chills. No recent illnesses. The patient does have a history of chronic pain. Review of Systems 10 system review performed and negative unless noted in HPI or below Past Medical/Surgical History Medical Problems: (1) Anxiety State Nos (2) Asthma, Unspecified (3) Cholecystectomy (4) Coccyx pain (5) Depressive Disorder Nec (6) Esophageal Reflux (7) Labor check (8) Lumbago (9) Migraine (10) Normal labor (11) Obesity, Nos (12) 25 weeks 3 days (13) related abdominal pain of lower quadrant, antepartum (14) with 39 completed weeks gestation (15) Pyelonephritis Nos (16) Tobacco Use Disorder (17) Toxemia of (18) Uterine contractions at greater than 20 weeks of gestation Family History Cancer Diabetes mellitus FHx: gallbladder disease Heart disease Hypertension Kidney disease Kidney stones Lung disease Social History Smoking Status: Never Smoker Alcohol Use: none Drug Use: none Marital Status: Housing Status: lives with family Occupation Status: employed Current/Historical Medications Scheduled Cyclobenzaprine Hcl (Flexeril), 10 MG PO TID Ondansetron (Ondansetron Odt), 8 MG PO TID Prednisone (Prednisone), 50 MG PO DAILY Ranitidine Hcl (Zantac), 300 MG PO HS Scheduled PRN Albuterol (Ventolin Hfa), 2 PUFFS INH UD PRN for SOB/Wheezing Tramadol (Ultram), 50 MG PO Q4H PRN for Pain Physical Exam Vital Signs Date Time Temp Pulse Resp B/P (MAP) Pulse Ox O2 Delivery O2 Flow Rate FiO2 06/10/18 22:13 85 120/80 95 06/10/18 20:16 36.6 93 18 119/98 96 Room Air Physical Exam GENERAL: 28-year-old female, obese,, in no acute distress, nondiaphoretic, well- developed well-nourished. SKIN: The skin was without rashes, erythema, edema, or bruising. HEAD: Normocephalic atraumatic. EYES: . Conjunctivae without injection, sclerae without icterus. Extraocular movements intact. NECK: Supple without nuchal rigidity. Cervical spine is nontender. HEART: Regular rate and rhythm without murmurs gallops or rubs. LUNGS: Clear to auscultation bilaterally without wheezes, rales or rhonchi. No accessory muscle use. ABDOMEN: Positive bowel sounds x 4.Soft, MUSCULOSKELETAL: No muscle atrophy, erythema, or edema noted. Mild tenderness to palpation over the left SI joint. No tenderness to palpation over the lumbar spinous processes. No muscle spasms noted. Full range of motion in all extremities. No tenderness to palpation. Normal gait. Strength 5/5 throughout. NEURO: Patient was alert and oriented to person place and time. Normal sensation to touch. No focal neurological deficits. Medical Decision & Procedures Medications Administered Medications (Trade) Dose Ordered Sig/[facility] Route Start Time Stop Time Status Last Admin Dose Admin Tramadol HCl (Ultram Tab) 50 mg ONE STAT PO 06/10/18 20:55 06/10/18 20:57 DC 06/10/18 21:07 50 MG Ketorolac Tromethamine (Toradol Inj) 60 mg ONE ONCE IM 06/10/18 21:00 06/10/18 21:01 DC 06/10/18 21:07 60 MG Dexamethasone Sodium Phosphate (Decadron Inj) 10 mg NOW STAT IM 06/10/18 20:55 06/10/18 20:57 DC 06/10/18 21:08 10 MG Cyclobenzaprine HCl (Flexeril Tab) 10 mg NOW STAT PO 06/10/18 20:55 06/10/18 20:57 DC 06/10/18 21:06 10 MG ED Course The patient was seen and examined She was medicated as noted above Upon reevaluation, she was feeling better Discharge instructions were reviewed, and she was discharged in good condition Medical Decision Differential diagnosis: SI joint inflammation,, ligamentous injury, subluxation , spondylolisthesis, spondylosis, herniated disc, contusion, muscle spasm This patient is a 28-year-old female presents to the emergency department complaining of left lower back pain radiating down her left leg. On exam, she was neurovascularly intact. She did not have any injury. I did not find imaging necessary. I believe this is likely a lumbar strain. She will be treated with a short course of steroids and muscle relaxants. She was encouraged to follow-up closely with her primary care physician, and cautioned for signs for which to return to the emergency department. This chart was completed in part utilizing [employer] Voice Recognition software. Attempts were made to minimize the grammatical errors, random word insertions, pronoun errors and incomplete sentences. Any formal questions or concerns about the content, text or information contained within the body of this dictation should be directly addressed to the provider for clarification. Medication Reconcilliation Current Medication List: was personally reviewed by me Blood Pressure Screening Patient's blood pressure: Normal blood pressure Impression Primary Impression: Low back pain Departure Information Dispostion Home / Self-Care Condition GOOD Prescriptions Tramadol (Ultram) 50 Mg Tab 50 MG PO Q4H Y for Pain, #15 TAB Prov: Rahel Gutierres PA-C 06/10/18 Cyclobenzaprine Hcl (FLEXERIL) 10 Mg Tab 10 MG PO TID for Muscle Spasms, #15 TAB Prov: Rahel Gutierres PA-C 06/10/18 Prednisone (Prednisone) 50 Mg Tab 50 MG PO DAILY for 4 Days, #4 TAB Prov: Rahel Guiterres PA-C 06/10/18 Referrals Ravinder Artis M.D. (PCP) Patient Instructions My [facility] Additional Instructions You have been evaluated in the emergency department for back pain. This is likely due to a strain. Please alternate ice with moist heat to the area Ibuprofen 800 mg and/or Tylenol 1000 mg every 8 hours for pain. You may also alternate these medications for more effective pain relief: Ibuprofen --4 HRS--> Tylenol --4 HRS--> ibuprofen --4 HRS--> Tylenol .... Please take tramadol 1 tab every 4 hours as needed for severe pain. This may be taken with Tylenol and/or ibuprofen Please take the entire course of prednisone Flexeril every 8 hours as needed for muscle spasm/pain. Please also do not drink alcohol or drive while taking this medication. No strenuous activity while your back is still painful Please follow-up with your primary care physician early next week for a recheck Do not hesitate to return to the emergency department with any new, worsening or concerning symptoms; especially, fever, weakness in your legs or problems with urination or bowel movements
[2018-06-10] MEDS ORDERED: RANI300T PO (21:36)
[2018-06-10] MEDS ORDERED: PRED50TA PO (21:52)
[2018-06-10] MEDS ORDERED: TRAM-10 PO (21:52)
[2018-06-10] MEDS ORDERED: CYCL10TA6 PO (21:52)
[2018-06-10] MEDS ORDERED: TRAMADOL HCL 50 MG HOME PACK PO ONE (22:00)
[2018-06-10] MEDS ORDERED: FLEXERIL HOME PACK 10 MG VIAL PO ONE (22:00)
[2018-06-10 22:13] VITALS: BP 120/80; PULSE 85; O2SAT 95
== END 2018-06-10 22:14 | disposition home or self-care (01) ==
LOC: EDBD 20:12 → C.EDB 20:14
DX: M54.5 Low back pain (principal); M79.605 Pain in left leg; F41.9 Anxiety disorder, unspecified; J45.909 Unspecified asthma, uncomplicated; Z90.49 Acquired absence of other specified parts of digestive tract; F32.9 Major depressive disorder, single episode, unspecified; E66.9 Obesity, unspecified; Z80.9 Family history of malignant neoplasm, unspecified; Z83.3 Family history of diabetes mellitus; Z83.79 Family history of other diseases of the digestive system; Z82.49 Family history of ischemic heart disease and other diseases of the circulatory system; Z84.1 Family history of disorders of kidney and ureter; Z83.6 Family history of other diseases of the respiratory system; Z79.899 Other long term (current) drug therapy